=== PATIENT | female | born 1940 | race Caucasian/White ===

== ENCOUNTER 2017-03-07 16:42 | Inpatient (IN) | payer BC, OTHER ==
[~2017-03-07] VITALS: Ht 152.4 cm; Wt 56.3 kg
[~2017-03-07 16:42] MED LIST: DIGO30TA PO; FLEC50TA20 PO; HYDR12.56 PO; LEVO100T PO; LOSA1TAB38 PO; PRAV20TA PO; RSTOPS OP; SPIR25TA PO; WARF2.5T8 PO
[2017-03-07] MEDS ORDERED: ACETAMINOPHEN 325 MG TAB PO STA (17:05)
[2017-03-07] MEDS ORDERED: SODIUM CHLORIDE 0.9% 1000ML 500 ML IV ONE (18:26)
[2017-03-07] MEDS ORDERED: AZTREONAM IV 2,000 MG in DEXTROSE 5% 100ML 100 ML IV STA (18:26)
[2017-03-07] MEDS ORDERED: OPTIRAY 320 IV PRN (18:45)
--- NOTE | 2017-03-07 19:03 | DIAGNOSTIC IMAGING REPORT ---
CHEST ONE VIEW PORTABLE HISTORY: Fever. Sepsis COMPARISON: None. FINDINGS: Left-sided dual-chamber pacemaker. Linear density at the left lung base. The lungs are otherwise clear. The heart is borderline enlarged. No pleural effusions. No pneumothorax. IMPRESSION: Left basilar linear densities favor subsegmental atelectasis. Otherwise, no acute process within the chest. Electronically signed by: Mando Carr M.D. 03/07/2017 7:02 PM Dictated Date/Time: 03/07/2017 7:01 PM
[2017-03-07 19:07] LABS: BASO % 0.3 %; BASO ABS # 0.02 K/uL (0-0.2); COMPLETE YES; HEMATOCRIT 40.3 % (37-47); IG% 0.4 %; LYMPH % 5.8 %; LYMPH ABS # 0.42 K/uL (1.2-3.4); MEAN CELL VOLUME 91.4 fL (80-100); MEAN CORPUSCULAR HEMOGLOBIN 31.7 pg (25-34); MEAN CORPUSCULAR HGB CONC 34.7 g/dl (32-36); MEAN PLATELET VOLUME 10.7 fL (7.4-10.4); MONO % 3.6 %; NEUT % 89.9 %; PLATELET COUNT 148 K/uL (130-400); RED BLOOD COUNT 4.41 M/uL (4.2-5.4); WHITE BLOOD COUNT 7.24 K/uL (4.8-10.8)
[2017-03-07] MEDS ORDERED: CLR10 PO (19:09)
[2017-03-07] MEDS ORDERED: FLUT0.15 NAE (19:09)
[2017-03-07] MEDS ORDERED: MULT-610 PO (19:09)
[2017-03-07] MEDS ORDERED: ALBU18002 INH (19:09)
[2017-03-07] MEDS ORDERED: CLBPO15 TOP (19:09)
[2017-03-07] MEDS ORDERED: CETI10TA84 PO (19:09)
[2017-03-07] MEDS ORDERED: BIOTCAP2 PO (19:09)
[2017-03-07] MEDS ORDERED: CYAN100T PO (19:09)
[2017-03-07] MEDS ORDERED: CALC1CHW2 PO (19:09)
[2017-03-07] MEDS ORDERED: MELA10TA2 PO (19:09)
[2017-03-07 19:20] LABS: INR 1.8 (0.9-1.1); PARTIAL THROMBOPLASTIN RATIO 1.5; PROTHROMBIN TIME (PATIENT) 20.1 SECONDS (9.0-12.0)
--- NOTE | 2017-03-07 19:25 | EMERGENCY ROOM VISIT NOTE ---
History Report prepared by Chrissy: Anna Acharya Under the Supervision of: Dr. Jimbo Madrigal M.D. First contact with patient: 18:15 Chief Complaint: RESPIRATORY PROBLEMS Stated Complaint: HEART,FEVER,SHAKING SPELLS, Nursing Triage Summary: Short of breath for several months. Developed fever last night of 103, shaking, and cold. Called Dr. Garcia who referred pt here. Febrile in triage, 39.3, did not take any tylenol or ibuprofen. History of Present Illness The patient is a 76 year old female who presents to the Emergency Room with complaints of increasing shortness of breath that began three months ago. The patient states that she is typically short of breath with exertion, but notes that recently he has been becoming short of breath with short exertions. She reports that in December she travelled to the [place]. The patient denies any troubles on the vacation other than a syncopal episode due to the heat. She states that two days ago she developed a fever and chills, noting that she takes Tylenol for the fever. The patient states that today she saw her environmental health aide for her recent symptoms, noting that she was sent here for concern of infection or pulmonary embolism. She states that she has been feeling increasingly fatigued, noting that she has been sleeping more. The patient states that she is on Coumadin for her history of atrial fibrillation. She states that her last INR level was low normal. The patient denies any recent or currently antibiotic usage. She denies any recent tick bites. 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 Source of History: patient Onset: three months ago Position: other (global) Quality: other (shortness of breath) Timing: other (persistent) Associated Symptoms: + fevers, + chills, + fatigue Review of Systems See HPI for pertinent positives & negatives. A total of 10 systems reviewed and were otherwise negative. Past Medical & Surgical Medical Problems: (1) Atrial fibrillation (2) Endocarditis (3) Fever and chills (4) Tachy-shantel syndrome Surgical Problems: (1) S/P placement of cardiac pacemaker Family History No pertinent family history Social History Smoking Status: Never Smoker Marital Status: Housing Status: lives with significant other Occupation Status: retired Current/Historical Medications Scheduled Biotin (Biotin 5000), 5,000 MCG PO Q2D Calcium Carbonate-Vitamin D (Caltrate 600+D 600-400 mg-Unit), 1 TAB PO DAILY Cetirizine (Zyrtec), 10 MG PO DAILY Cyanocobalamin (Vitamin B-12), 100 MCG PO DAILY Cyclosporine (Restasis Eye Drops), 1 DROP OP BID Digoxin (Digitek), 0.125 MG PO DAILY Flecainide (Tambocor), 100 MG PO QAM Flecainide (Tambocor), 50 MG PO QPM Hydrochlorothiazide (Hctz), 12.5 MG PO 2XWK Levothyroxine Sodium (Synthroid), 100 MCG PO DAILY Loratadine (Claritin), 10 MG PO DAILY Losartan Potassium (Cozaar), 100 MG PO DAILY Melatonin (Melatonin), 10 MG PO HS Multiple Vitamins W/ Minerals (Centrum Adults), 1 TAB PO DAILY Pravastatin (Pravachol ), 20 MG PO QPM Spironolactone (Aldactone), 25 MG PO DAILY Warfarin Sod (Jantoven), 2.5 MG PO 6XWK Warfarin Sod (Jantoven), 1.25 MG PO WK Scheduled PRN Albuterol Sulfate (Proair Respiclick), 2 PUFFS INH QID PRN for SOB/Wheezing Clobetasol Propionate (Clobetasol Propionate), 1 APPLN TOP BID PRN for Fluticasone Propionate (Nasal) (Flonase Allergy Relief), 2 SPRAYS TAMERA DAILY PRN for Allergies Coded Allergies: Cephalosporins (Verified Allergy, Intermediate, HIVES, 03/07/17) Penicillins (Verified Allergy, Intermediate, HIVES, 03/07/17) Lisinopril (Verified Allergy, Unknown, UNKNOWN, 03/07/17) Physical Exam Vital Signs Date Time Temp Pulse Resp B/P (MAP) Pulse Ox O2 Delivery O2 Flow Rate FiO2 03/07/17 21:51 71 16 131/58 94 Room Air 03/07/17 21:08 66 03/07/17 19:12 93 Room Air 03/07/17 19:04 65 16 119/56 93 Room Air 03/07/17 17:02 95 Room Air 03/07/17 16:56 39.3 77 16 151/73 95 Room Air Physical Exam GENERAL: Patient is in no acute distress. HEENT: No acute trauma, normocephalic atraumatic, mucous membranes moist, no nasal congestion, no scleral icterus. NECK: No stridor, no adenopathy, no meningismus, trachea is midline. LUNGS: Lung: crackles at left base, no wheezing, breath sounds are equal, no respiratory distress. HEART: Without murmurs gallops or rubs, regular rate and rhythm. ABDOMEN: Soft, nontender, bowel sounds positive, no hernias, no peritonitis. EXTREMITIES: No cyanosis or edema, full range of motion of all the joints without pain or difficulty, no signs for acute trauma. NEUROLOGIC: Oriented x 3, no acute motor or sensory deficits, no focal weakness. SKIN: No rash, no jaundice, no diaphoresis. Medical Decision & Procedures ER Provider Diagnostic Interpretation: Radiology results as stated below per my review and radiologist interpretation: CT ANGIOGRAPHY OF THE CHEST, PULMONARY EMBOLUS PROTOCOL CLINICAL HISTORY: Shortness of breath and fever. COMPARISON STUDY: Chest radiograph March 07, 2017. TECHNIQUE: Following IV administration of 94 mL of Optiray-320, helical axial images of the chest were obtained utilizing the pulmonary embolus protocol. Maximal intensity projections and sagittal and coronal reformats were viewed on an independent 3D workstation. IV contrast was administered without complication. A dose lowering technique was utilized adhering to the principles of ALARA. CT DOSE: 169.73 mGy.cm FINDINGS: No pulmonary emboli are identified although the segmental and subsegmental pulmonary arteries within the lower lobes are suboptimally assessed due to respiratory motion. There is a dual lead left subclavian pacemaker. The heart is moderately enlarged. There is no evidence of thoracic aortic dissection. No enlarged thoracic lymph nodes are present. No pneumothorax or pleural effusion is present. Suspected venous gas is noted within the right anterior chest wall. There is no consolidation to suggest pneumonia although lungs are suboptimally assessed due to respiratory motion. The bony thorax and upper abdomen are unremarkable. IMPRESSION: 1. No pulmonary emboli identified although the segmental and subsegmental pulmonary arteries within the lower lobes are suboptimally assessed due to respiratory motion. 2. Moderate cardiomegaly. 3. No acute intrathoracic findings. Electronically signed by: Jaquan Arroyo M.D. 03/07/2017 9:11 PM Dictated Date/Time: 03/07/2017 9:01 PM CHEST ONE VIEW PORTABLE HISTORY: Fever. Sepsis COMPARISON: None. FINDINGS: Left-sided dual-chamber pacemaker. Linear density at the left lung base. The lungs are otherwise clear. The heart is borderline enlarged. No pleural effusions. No pneumothorax. IMPRESSION: Left basilar linear densities favor subsegmental atelectasis. Otherwise, no acute process within the chest. Electronically signed by: Mando Carr M.D. 03/07/2017 7:02 PM Dictated Date/Time: 03/07/2017 7:01 PM Laboratory Results 03/07/17 18:48 Red Blood Count 4.41, Mean Corpuscular Volume 91.4, Mean Corpuscular Hemoglobin 31.7, Mean Corpuscular Hemoglobin Concent 34.7, Mean Platelet Volume 10.7, Neutrophils (%) (Auto) 89.9, Lymphocytes (%) (Auto) 5.8, Monocytes (%) (Auto) 3.6, Eosinophils (%) (Auto) 0.0, Basophils (%) (Auto) 0.3, Neutrophils # (Auto) 6.51, Lymphocytes # (Auto) 0.42, Monocytes # (Auto) 0.26, Eosinophils # (Auto) 0.00, Basophils # (Auto) 0.02 03/07/17 18:48 Test 03/07/17 18:48 03/07/17 18:52 03/07/17 20:10 White Blood Count 7.24 K/uL (4.8-10.8) Red Blood Count 4.41 M/uL (4.2-5.4) Hemoglobin 14.0 g/dL (12.0-16.0) Hematocrit 40.3 % (37-47) Mean Corpuscular Volume 91.4 fL (80-100) Mean Corpuscular Hemoglobin 31.7 pg (25-34) Mean Corpuscular Hemoglobin Concent 34.7 g/dl (32-36) Platelet Count 148 K/uL (130-400) Mean Platelet Volume 10.7 fL (7.4-10.4) Neutrophils (%) (Auto) 89.9 % Lymphocytes (%) (Auto) 5.8 % Monocytes (%) (Auto) 3.6 % Eosinophils (%) (Auto) 0.0 % Basophils (%) (Auto) 0.3 % Neutrophils # (Auto) 6.51 K/uL (1.4-6.5) Lymphocytes # (Auto) 0.42 K/uL (1.2-3.4) Monocytes # (Auto) 0.26 K/uL (0.11-0.59) Eosinophils # (Auto) 0.00 K/uL (0-0.5) Basophils # (Auto) 0.02 K/uL (0-0.2) RDW Standard Deviation 41.6 fL (36.4-46.3) RDW Coefficient of Variation 12.4 % (11.5-14.5) Immature Granulocyte % (Auto) 0.4 % Immature Granulocyte # (Auto) 0.03 K/uL (0.00-0.02) Prothrombin Time 20.1 SECONDS (9.0-12.0) Prothromb Time International Ratio 1.8 (0.9-1.1) Activated Partial Thromboplast Time 38.3 SECONDS (21.0-31.0) Partial Thromboplastin Ratio 1.5 Anion Gap 8.0 mmol/L (3-11) Est Creatinine Clear Calc Drug Dose 29.1 ml/min Estimated GFR () 46.2 Estimated GFR (Non- 39.8 BUN/Creatinine Ratio 15.0 (10-20) Calcium Level 8.5 mg/dl (8.5-10.1) Magnesium Level 1.8 mg/dl (1.8-2.4) Total Bilirubin 0.7 mg/dl (0.2-1) Aspartate Amino Transf (AST/SGOT) 39 U/L (15-37) Alanine Aminotransferase (ALT/SGPT) 41 U/L (12-78) Alkaline Phosphatase 63 U/L (45-117) Total Protein 6.9 gm/dl (6.4-8.2) Albumin 3.3 gm/dl (3.4-5.0) Globulin 3.6 gm/dl (2.5-4.0) Albumin/Globulin Ratio 0.9 (0.9-2) Thyroid Stimulating Hormone (TSH) 0.107 uIu/ml (0.300-4.500) Free Thyroxine 1.77 ng/dl (0.80-1.60) Chemistry Specimen Hemolysis Digoxin Level 1.1 ng/ml (0.8-2.0) Lyme Disease IgG Antibody NEG (NEG) Lyme Disease IgM Antibody NEG (NEG) Bedside Lactic Acid Venous 0.93 mmol/L (0.90-1.70) Urine Color YELLOW Urine Appearance CLEAR (CLEAR) Urine pH 6.5 (4.5-7.5) Urine Specific [place] 1.016 (1.000-1.030) Urine Protein TRACE (NEG) Urine Glucose (UA) NEG (NEG) Urine Ketones NEG (NEG) Urine Occult Blood NEG (NEG) Urine Nitrite NEG (NEG) Urine Bilirubin NEG (NEG) Urine Urobilinogen NEG (NEG) Urine Leukocyte Esterase NEG (NEG) Urine WBC (Auto) 1-5 /hpf (0-5) Urine RBC (Auto) 5-10 /hpf (0-4) Urine Hyaline Casts (Auto) 1-5 /lpf (0-5) Urine Epithelial Cells (Auto) 5-10 /lpf (0-5) Urine Bacteria (Auto) NEG (NEG) Laboratory results reviewed by me. Medications Administered Medications (Trade) Dose Ordered Sig/Cynthia Route Start Time Stop Time Status Last Admin Dose Admin Acetaminophen (Tylenol Tab) 650 mg NOW STAT PO 03/07/17 17:05 03/07/17 17:07 DC 03/07/17 17:05 650 MG Sodium Chloride 500 ml @ 999 mls/hr Q31M ONCE IV 03/07/17 18:26 03/07/17 18:56 DC 03/07/17 19:02 999 MLS/HR Aztreonam 2000 mg/ Dextrose 110 ml @ 100 mls/hr NOW STAT IV 03/07/17 18:26 03/07/17 19:31 DC 03/07/17 19:02 100 MLS/HR Sodium Chloride 500 ml @ 999 mls/hr Q31M STAT IV 03/07/17 19:43 03/07/17 20:13 DC 03/07/17 20:15 999 MLS/HR ECG Indication: SOB/dyspnea Rate (beats per minute): 68 Rhythm: normal sinus Findings: no acute ischemic change, other (Old inferior infarct, Poor R wave progression) ED Course 1704: Ordered Tylenol Tab 650 mg PO. 1820: The patient was evaluated in room A4B. A complete history and physical exam was performed. 1825: Ordered Aztreonam 2000 mg/Dextrose 110 ml @ 100 mls/hr IV, Sodium Chloride 500 ml @ 999 mls/hr IV. 1942: Ordered Sodium Chloride 500 ml @ 999 mls/hr IV. 2124: I reevaluated the patient and she is resting comfortably. I discussed the exam findings with her and I discussed the treatment plan. She verbalized complete understanding and agreement. We are awaiting a call back from cardiology. 2129: I discussed the patients case with Dr. Mays Cardiology. He states that the patient should be evaluated for further treatment in the hospital. 2138: I spoke with the patient and updated her on the conversation I had with Cardiology. She is in agreement with the plan. She will be evaluated for further treatment. 2139: I discussed the patients case with Leda Peterson. He is going to evaluate the patient for further treatment. Medical Decision The patient is a 76 year old female who presents to the ED with complaints of shortness of breath. Differential diagnoses considered include sepsis, bacteremia, Lyme Disease, endocarditis, pneumonia, UTI, viral illness, PE, electrolyte imbalance, anemia. There is no leukocytosis or concerning anemia. No significant electrolyte abnormality, kidney failure or hepatitis. Lactic acid level is not elevated making severe sepsis less likely. Urinalysis does not show infection. Blood cultures are pending. INR is somewhat subtherapeutic for someone on Coumadin. Chest film does not show any pneumonia. EKG shows a sinus rhythm, no acute ischemia. Chest CT does not show any PE or pneumonia. Lyme disease testing is negative. Digoxin level is not toxic. The patient received IV saline, she was given IV aztreonam as antibiotic coverage. She received oral Tylenol for her fever. The patient presents with a fever without a known source. I did speak with her environmental health aide. There was concern for endocarditis. Hospitalization was felt needed. I spoke to the patient and the casework manager. I spoke with the on-call hospitalist. Admission/observation is warranted. Medication Reconcilliation Current Medication List: was personally reviewed by me Blood Pressure Screening Patient's blood pressure: Elevated blood pressure Blood pressure disposition: Elevated BP felt to be situational Consults Time Called: 2126 Consulting Physician: Dr. Mays, Cardiology Returned Call: 2129 I discussed the patients case with Dr. Mays Cardiology. He states that the patient should be evaluated for further treatment in the hospital. Additional Consults: Time Called: 2137 Consulted Physician: Leda Peterson Returned Call: 2139 Additional Comments: I discussed the patients case with Leda Peterson. He is going to evaluate the patient for further treatment. Impression Primary Impression: Shortness of breath Additional Impression: Fever Scribe Attestation The scribe's documentation has been prepared under my direction and personally reviewed by me in its entirety. I confirm that the note above accurately reflects all work, treatment, procedures, and medical decision making performed by me. Departure Information Dispostion Being Evaluated By Hospitalist Referrals Maia Benito DO (PCP) Problem Qualifiers
[2017-03-07 19:39] LABS: ALB/GLOB RATIO 0.9 (0.9-2); CALCIUM 8.5 mg/dl (8.5-10.1); CREATININE 1.3 mg/dl (0.60-1.20); MAGNESIUM 1.8 mg/dl (1.8-2.4); POTASSIUM 3.8 mmol/L (3.5-5.1); THYROID STIMULATING HORMONE 0.107 uIu/ml (0.300-4.500)
[2017-03-07] MEDS ORDERED: SODIUM CHLORIDE 0.9% 500ML 500 ML IV STA (19:43)
[2017-03-07 19:59] LABS: LYME DISEASE AB IGG NEG (NEG); LYME DISEASE AB IGM NEG (NEG)
[2017-03-07 21:02] LABS: URINE APPEARANCE CLEAR (CLEAR); URINE BILIRUBIN NEG (NEG); URINE COLOR YELLOW; URINE NITRITE NEG (NEG); URINE PH 6.5 (4.5-7.5); URINE SPECIFIC GRAVITY 1.016 (1.000-1.030); UROBILINOGEN NEG (NEG); ZZUR CULT IF INDIC CLEAN CATCH NO
[2017-03-07 21:04] LABS: MANUAL MICROSCOPIC REQUIRED? NO; REVIEW REQ? NO
--- NOTE | 2017-03-07 21:12 | DIAGNOSTIC IMAGING REPORT ---
CT ANGIOGRAPHY OF THE CHEST, PULMONARY EMBOLUS PROTOCOL CLINICAL HISTORY: Shortness of breath and fever. COMPARISON STUDY: Chest radiograph March 07, 2017. TECHNIQUE: Following IV administration of 94 mL of Optiray-320, helical axial images of the chest were obtained utilizing the pulmonary embolus protocol. Maximal intensity projections and sagittal and coronal reformats were viewed on an independent 3D workstation. IV contrast was administered without complication. A dose lowering technique was utilized adhering to the principles of ALARA. CT DOSE: 169.73 mGy.cm FINDINGS: No pulmonary emboli are identified although the segmental and subsegmental pulmonary arteries within the lower lobes are suboptimally assessed due to respiratory motion. There is a dual lead left subclavian pacemaker. The heart is moderately enlarged. There is no evidence of thoracic aortic dissection. No enlarged thoracic lymph nodes are present. No pneumothorax or pleural effusion is present. Suspected venous gas is noted within the right anterior chest wall. There is no consolidation to suggest pneumonia although lungs are suboptimally assessed due to respiratory motion. The bony thorax and upper abdomen are unremarkable. IMPRESSION: 1. No pulmonary emboli identified although the segmental and subsegmental pulmonary arteries within the lower lobes are suboptimally assessed due to respiratory motion. 2. Moderate cardiomegaly. 3. No acute intrathoracic findings. Electronically signed by: Jaquan Arroyo M.D. 03/07/2017 9:11 PM Dictated Date/Time: 03/07/2017 9:01 PM
[2017-03-07] MEDS ORDERED: VANCOMYCIN INJ 1,400 MG in SODIUM CHLORIDE 0.9% 250ML 250 ML IV STA (22:14)
[2017-03-07] MEDS ORDERED: ALBUTEROL HFA 8 GM INHALER INH PRN (22:15)
[2017-03-07] MEDS ORDERED: FLUTICASONE PROPIONATE NA SPR 16 GM BTL NAE PRN (22:15)
[2017-03-07] MEDS ORDERED: ONDANSETRON INJ 2 MG/ML 2 ML VIAL IV PRN (22:15)
[2017-03-07] MEDS ORDERED: VANCOMYCIN INJ 1,400 MG in SODIUM CHLORIDE 0.9% 500ML 500 ML IV STA (22:18)
[2017-03-07 23:01] VITALS: BP 173/80; PULSE 111; TEMP 37.5; O2SAT 95; Ht 152.4 cm; Wt 56.3 kg
[2017-03-07] MEDS ORDERED: WARFARIN SOD 2.5 MG TAB PO STA (23:15)
[2017-03-07 23:25] VITALS: BP 122/62; PULSE 80
[2017-03-07] MEDS ORDERED: VANCOMYCIN CONSULT ACTIVE PRN (23:45)
[2017-03-07] MEDS ORDERED: AZTREONAM CONSULT ACTIVE PRN ×2 (23:45)
[2017-03-08] VITALS (31 sets, daily range): BP systolic 102–145; BP diastolic 48–74; PULSE 60–89; TEMP 36.5–38.8; O2SAT 92–98
[2017-03-08] MEDS: NSS + 20MEQ KCL 1000ML 1,000 ML IV SCH ×3 (00:44→18:30)
--- NOTE | 2017-03-08 00:50 | HISTORY & PHYSICAL EXAMINATION ---
DATE OF ADMISSION: 03/07/2017 PRIMARY CARE PHYSICIAN: Dr. Benito. CHIEF COMPLAINT: Shortness of breath for 2 months and fever with chills and nausea for the last 2 days. HITORY OF PRESENT COMPLAINT: She is a 76-year-old female with significant past medical history including atrial fibrillation, on anticoagulation, mitral valve regurgitation, hypothyroidism, hypertension, chronic kidney disease stage III. Apparently has been complaining of shortness of breath for the last 2 days. Her shortness of breath is getting worse and now she gets shortness of breath when walking on the same floor. For the last 2 days, she also developed fever and she documented temperature to be 103.5 degrees. The fever was associated with severe chills and shakes and also had some nausea with it but did not have any cough, any phlegm, any sore throat, any runny nose, sneezing, any problem with urine and/or bowel. She does not have any rash. She was seen in the cardiology clinic today and from there she was sent to Emergency Room for evaluation and workup for probable endocarditis. In the ER, she was hemodynamically stable and her blood counts were fairly unremarkable except creatinine of 1.[address] scan of the chest negative for any pulmonary embolism. She was started with intravenous aztreonam and vancomycin after taking blood cultures and she was admitted to telemetry unit for continuation of care. PAST MEDICAL HISTORY: Significant for atrial fibrillation, on anticoagulation, history of tachybrady syndrome with cardiac pacemaker, chronic kidney disease stage III, mitral valve regurgitation, hypothyroidism, hypertension and chronic shortness of breath on exertion. PAST SURGICAL HISTORY: Significant for pacemaker insertion, right knee surgery as a child, tonsillectomy as a child and hysterectomy in 1993. FAMILY HISTORY: Significant that both the parents had ischemic heart disease. SOCIAL HISTORY: She is . She lives with her . She does not smoke but drinks very occasionally and she has been ambulant though she gets short of breath even walking on the same floor for the last few days. ALLERGIES: SHE IS ALLERGIC TO CEPHALOSPORINS, LISINOPRIL AND PENICILLIN. MEDICATIONS: As an outpatient, she has been on hydrochlorothiazide 12.5 mg 2 times per week, warfarin 2.5 mg as directed, biotin 5000 mcg every 2 days, calcium with vitamin D 1 tablet daily, clobetasol propionate 1 application topical b.i.d. as needed, albuterol inhaler 2 puffs q.i.d. p.r.n., Zyrtec 10 mg daily, cyanocobalamin 100 mcg daily, cyclosporine solution 1 drop b.i.d., digoxin 0.125 mg daily, flecainide 50 mg q.p.m., flecainide 50 mg tablet 2 tablets in the morning, Flonase nasal spray 2 sprays each nostril, levothyroxine 100 mcg daily, Claritin 10 mg daily, losartan potassium, Cozaar 100 mg daily, melatonin 10 mg at night, multivitamin 1 tablet daily, Pravachol 20 mg tablet daily, spironolactone 25 mg tablet daily. REVIEW OF SYSTEMS: CENTRAL NERVOUS SYSTEM: No headache, no blurred vision, no numbness or tingling in the extremities. RESPIRATORY: Has shortness of breath on minimal exertion. No cough or phlegm. CARDIOVASCULAR: No chest pain, no palpitations. GASTROINTESTINAL: No abdominal distention, pain, and had nausea but no vomiting. GENITOURINARY: No problem with urine and/or bowel habit. Generally, does not have any rash or any joint pain. CONSTITUTIONAL: She complains to have fever with chills, generalized weakness with shortness of breath and nausea. PHYSICAL EXAMINATION: GENERAL: On examination in the Emergency Room, she was not having any acute distress except she complained of some chills. VITAL SIGNS: Temperature 39.3, pulse was 71, blood pressure 131/58, saturation 94% on room air. HEENT: Unremarkable. NECK: Supple. No JVD, no bruit. CHEST: Clear to auscultation bilaterally. HEART: S1, S2 regular with a 2/6 systolic murmur over precordium. ABDOMEN: Soft, benign, nontender, no organomegaly. Bowel sounds present. EXTREMITIES: Trace edema bilaterally. Peripheral pulses were palpable. MUSCULOSKELETAL SYSTEM: Did not show any acute arthritis involving any joint. CENTRAL NERVOUS SYSTEM: She was alert, awake, oriented x3. No focal sensory and/or motor deficit appreciated. Generally, she did not have any rash and/or enlargement of lymph nodes. LABORATORY DATA: Noted today, white count was 7.24, H&H 14.0/40.3, platelet was 148. Sodium 131, potassium 3.8, chloride was 98, carbon dioxide 25, BUN 19, creatinine 1.3, random glucose 114, lactic acid was 0.93. LFTs unremarkable. AST slightly high at 39, albumin 3.3. TSH was 0.107, free T4 was 1.77. Digoxin level was 1.1 and Lyme titer Ig G&M negative. Protime was 20.1, INR 1.8, APTT ratio 1.5. Chest x-ray reported as left basilar linear densities, favor subsegmental atelectasis, otherwise no acute findings. CT of the chest to rule out pulmonary embolism. No pulmonary emboli identified, moderate cardiomegaly and no acute intrathoracic findings. EKG was in sinus rhythm, rate of 68 per minute. Normal axis, possible anterior infarct undetermined and no other ST-T wave changes. Other cardiac studies, echo that was done in 2014, cannot open the results. IMPRESSION AND PLAN: 1. Febrile illness with atrial fibrillation and mitral regurgitation. Infective endocarditis has to be ruled out. The patient was started with intravenous aztreonam and vancomycin. Blood cultures are taken. She will be admitted to telemetry unit with cardiology evaluation for possible ROLANDO in the morning. We will get ID consultation as well. There is no other cause for fever, found during this admission. We will check her urine as well. 2. Atrial fibrillation, on Coumadin. The rate seems to be controlled right now. She has a pacemaker for tachybrady syndrome, pacemaker was interrogated today in the clinic, those were unremarkable. We will continue her current medications. Her digoxin level is therapeutic. 3. Ongoing shortness of breath. The patient has mitral regurgitation. No recent echo on chart to document cardiac function. She will have a ROLANDO, I believe tomorrow, for further evaluation of cardiac function and also to rule out any endocarditis. 4. Hypertension. Blood pressure seems to be reasonably controlled. We will continue her current medications. 5. Hypothyroidism, her TSH is little bit low. Free T4 is high. We will hold thyroid medications, maybe we will need to start the lower dose in a day or two. 6. Gastrointestinal prophylaxis. We will put her on Protonix. 7. Deep venous thrombosis prophylaxis. She has been on Coumadin. We may have to bridge the patient during ROLANDO. Discuss that with aircraft painter apprentice.Continue Coumadin Code status, she will be full code. In my clinical judgment, the beneficiary meets criteria as per CMS for 2-midnight stay in the hospital. JORGITOD
[2017-03-08] MEDS: AZTREONAM IV 1,000 MG in DEXTROSE 5% 100ML 100 ML IV SCH ×3 (01:34→17:41)
--- NOTE | 2017-03-08 02:24 | Pharmacy Progress Note ---
Pharmacy Antibiotic Consult Date of Service: Mar 08, 2017. Pharmacy Dosing Scope * Pharmacy is consulted to initiate Vancomycin IV dosing therapy, order appropriate labs and adjust drug dose/frequency. Subjective * The patient is a 76 year old female admitted on Mar 07, 2017 at 22:14. Objective Height (Feet): 5 Height (Inches): 0.00 Weight (Kilograms): 57.100 Lab Results (24hrs): Test 03/07/17 18:48 03/07/17 18:52 03/07/17 20:10 03/08/17 00:18 White Blood Count 7.24 K/uL (4.8-10.8) Red Blood Count 4.41 M/uL (4.2-5.4) Hemoglobin 14.0 g/dL (12.0-16.0) Hematocrit 40.3 % (37-47) Mean Corpuscular Volume 91.4 fL (80-100) Mean Corpuscular Hemoglobin 31.7 pg (25-34) Mean Corpuscular Hemoglobin Concent 34.7 g/dl (32-36) Platelet Count 148 K/uL (130-400) Mean Platelet Volume 10.7 fL (7.4-10.4) Neutrophils (%) (Auto) 89.9 % Lymphocytes (%) (Auto) 5.8 % Monocytes (%) (Auto) 3.6 % Eosinophils (%) (Auto) 0.0 % Basophils (%) (Auto) 0.3 % Neutrophils # (Auto) 6.51 K/uL (1.4-6.5) Lymphocytes # (Auto) 0.42 K/uL (1.2-3.4) Monocytes # (Auto) 0.26 K/uL (0.11-0.59) Eosinophils # (Auto) 0.00 K/uL (0-0.5) Basophils # (Auto) 0.02 K/uL (0-0.2) RDW Standard Deviation 41.6 fL (36.4-46.3) RDW Coefficient of Variation 12.4 % (11.5-14.5) Immature Granulocyte % (Auto) 0.4 % Immature Granulocyte # (Auto) 0.03 K/uL (0.00-0.02) Prothrombin Time 20.1 SECONDS (9.0-12.0) Prothromb Time International Ratio 1.8 (0.9-1.1) Activated Partial Thromboplast Time 38.3 SECONDS (21.0-31.0) Partial Thromboplastin Ratio 1.5 Sodium Level 131 mmol/L (136-145) Potassium Level 3.8 mmol/L (3.5-5.1) Chloride Level 98 mmol/L (98-107) Carbon Dioxide Level 25 mmol/L (21-32) Anion Gap 8.0 mmol/L (3-11) Blood Urea Nitrogen 19 mg/dl (7-18) Creatinine 1.30 mg/dl (0.60-1.20) Est Creatinine Clear Calc Drug Dose 29.1 ml/min Estimated GFR () 46.2 Estimated GFR (Non- 39.8 BUN/Creatinine Ratio 15.0 (10-20) Random Glucose 114 mg/dl (70-99) Calcium Level 8.5 mg/dl (8.5-10.1) Magnesium Level 1.8 mg/dl (1.8-2.4) Total Bilirubin 0.7 mg/dl (0.2-1) Aspartate Amino Transf (AST/SGOT) 39 U/L (15-37) Alanine Aminotransferase (ALT/SGPT) 41 U/L (12-78) Alkaline Phosphatase 63 U/L (45-117) Total Protein 6.9 gm/dl (6.4-8.2) Albumin 3.3 gm/dl (3.4-5.0) Globulin 3.6 gm/dl (2.5-4.0) Albumin/Globulin Ratio 0.9 (0.9-2) Thyroid Stimulating Hormone (TSH) 0.107 uIu/ml (0.300-4.500) Free Thyroxine 1.77 ng/dl (0.80-1.60) Chemistry Specimen Hemolysis Digoxin Level 1.1 ng/ml (0.8-2.0) Lyme Disease IgG Antibody NEG (NEG) Lyme Disease IgM Antibody NEG (NEG) Bedside Lactic Acid Venous 0.93 mmol/L (0.90-1.70) Urine Color YELLOW Urine Appearance CLEAR (CLEAR) Urine pH 6.5 (4.5-7.5) Urine Specific Clifford 1.016 (1.000-1.030) Urine Protein TRACE (NEG) Urine Glucose (UA) NEG (NEG) Urine Ketones NEG (NEG) Urine Occult Blood NEG (NEG) Urine Nitrite NEG (NEG) Urine Bilirubin NEG (NEG) Urine Urobilinogen NEG (NEG) Urine Leukocyte Esterase NEG (NEG) Urine WBC (Auto) 1-5 /hpf (0-5) Urine RBC (Auto) 5-10 /hpf (0-4) Urine Hyaline Casts (Auto) 1-5 /lpf (0-5) Urine Epithelial Cells (Auto) 5-10 /lpf (0-5) Urine Bacteria (Auto) NEG (NEG) Total Creatine Kinase 111 U/L (26-192) Creatine Kinase MB < 0.5 ng/ml (0.5-3.6) Creatine Kinase MB Ratio (0-3.0) Troponin I 0.021 ng/ml (0-0.045) Micro Results: * Blood cultures are pending Recent Pertinent Medications * Pt is also receiving Aztreonam Assessment & Plan * Ms Horton is a 76y/o female admitted for endocarditis being treated with Vancomycin and Azactam. * Vanco Loading dose: 1400 mg IV ~25mg/kg) X 1 dose then 750mg IV (~ 13mg/kg ) every 24 hours * Goal trough level estimate: between 15-20 mcg/mL. * Trough level is ordered for 03/10/17 @ 9340 Pharmacy will continue to follow and will adjust dose/frequency as necessary. Thank you
[2017-03-08] MEDS: ACETAMINOPHEN 325 MG TAB PO PRN ×2 (04:20→15:53)
[2017-03-08] MEDS: LEVOTHYROXINE 100 MCG TAB PO SCH ×2 (05:25→07:42)
[2017-03-08 05:28] LABS: HEMATOCRIT 36.2 % (37-47); MEAN CELL VOLUME 90.7 fL (80-100); MEAN CORPUSCULAR HEMOGLOBIN 31.6 pg (25-34); MEAN CORPUSCULAR HGB CONC 34.8 g/dl (32-36); MEAN PLATELET VOLUME 10.2 fL (7.4-10.4); PLATELET COUNT 124 K/uL (130-400); RED BLOOD COUNT 3.99 M/uL (4.2-5.4); WHITE BLOOD COUNT 6.93 K/uL (4.8-10.8)
[2017-03-08 05:36] LABS: INR 1.7 (0.9-1.1); PROTHROMBIN TIME (PATIENT) 18.5 SECONDS (9.0-12.0)
[2017-03-08 06:01] LABS: ALKALINE PHOSPHATASE 50 U/L (45-117); ALT/SGPT 46 U/L (12-78); AST/SGOT 48 U/L (15-37); BLOOD UREA NITROGEN 17 mg/dl (7-18); BUN/CREATININE RATIO 14.4 (10-20); CARBON DIOXIDE 25 mmol/L (21-32); CHLORIDE 105 mmol/L (98-107); GLUCOSE 121 mg/dl (70-99); MAGNESIUM 1.7 mg/dl (1.8-2.4); POTASSIUM 3.5 mmol/L (3.5-5.1); SODIUM 137 mmol/L (136-145)
[2017-03-08 07:36] LABS: CALCIUM 7.2 mg/dl (8.5-10.1)
[2017-03-08] MEDS: CYANOCOBALAMIN 100 MCG TAB (VIT B-12) PO SCH (07:36)
[2017-03-08] MEDS: FLECAINIDE ACETATE 100 MG TAB PO SCH (07:36)
[2017-03-08] MEDS: LORATADINE 10 MG TAB PO SCH (07:36)
[2017-03-08] MEDS: CEROVITE ADV FORMULA TAB PO SCH (07:37)
[2017-03-08] MEDS: RESTASIS~ORDER AWAITING ACTION SCH ×3 (07:37→15:52)
[2017-03-08] MEDS: LOSARTAN POTASSIUM 50 MG TAB PO SCH (07:37)
[2017-03-08] MEDS: SPIRONOLACTONE 25 MG TAB PO SCH (07:37)
[2017-03-08] MEDS ORDERED: CETIRIZINE HCL 10 MG TAB PO SCH (09:00)
[2017-03-08] MEDS ORDERED: FENTANYL CITRATE INJ 50 MCG/1 ML 2 ML VIAL ONE (11:15)
[2017-03-08] MEDS ORDERED: MIDAZOLAM HCL 5 MG/ML 1 ML VIAL ONE (11:15)
--- NOTE | 2017-03-08 11:23 | Cardiology Consultation ---
Cardiology Consultation Date of Service Mar 08, 2017. Cardiology Consultation cardiology consultation in process. Pt seen and examined. Fever overnight, improved after tylenol. Pt fees well at present. TTecho this am was reviewed with normal wall motion , normal LVEF. Mild TR. AV and MV thickening without gross vegetation. Plan ROLANDO today with conscious sedation.
--- NOTE | 2017-03-08 11:24 | Procedure Note ---
Pre-Mod Sedation Assessment General Date of Moderate Sedation: Mar 08, 2017. Vital Signs: Vital Signs Past 12 Hours Date Time Temp Pulse Resp B/P (MAP) Pulse Ox O2 Delivery O2 Flow Rate FiO2 03/08/17 08:00 Room Air 03/08/17 07:35 37.0 63 18 103/63 (76) 96 Room Air 03/08/17 05:25 37.5 03/08/17 05:24 37.5 03/08/17 04:37 Room Air 03/08/17 04:05 38.8 89 18 134/72 (92) 93 Room Air 03/08/17 04:05 Room Air 03/08/17 00:05 Room Air 03/07/17 23:25 80 122/62 (82) Review Cardiovascular: regular rate, rhythm, no edema Abdomen: non tender Lungs: lungs clear Airway Class: II Pre-Sedation Airway Assessment Oral Cavity: WNL Able to Visualize Vocal Cords: No Short Thick Neck: No Hx of Sleep Apnea: No Smoking Status: Never Smoker Mallampati Classification: Class II ASA Classification: Class III Procedure Planning Contraindications-for Mod Sed: None Yes Notes The planned sedation has been discussed with the patient and consent obtained. I have identified the patient, determined the appropriateness of sedation and have assessed the patient immediately prior to the procedure. All medicine(s) and interventions are by my order.
[2017-03-08] MEDS ORDERED: LIDOCAINE HCL 2% JELLY 30 ML TUBE EXT ONE (11:29)
[2017-03-08] MEDS ORDERED: NURSING VERBAL MED ORDER ONE (11:45)
[2017-03-08 11:47] LABS: CKMB/CK RATIO 0.6 (0-3.0)
[2017-03-08] MEDS ORDERED: LIDOCAINE HCL 2% VISC SOLN 20 ML UDC PO ONE (11:57)
[2017-03-08] MEDS ORDERED: LIDOCAINE HCL 2% VISC SOLN 20 ML UDC MT ONE (12:00)
--- NOTE | 2017-03-08 13:01 | Procedure Note ---
Post-Mod Sedation Assessment General Date of Moderate Sedation Mar 08, 2017. Vital Signs: Vital Signs Past 12 Hours Date Time Temp Pulse Resp B/P (MAP) Pulse Ox O2 Delivery O2 Flow Rate FiO2 03/08/17 12:36 68 26 126/60 94 Nasal Cannula 2.0 03/08/17 12:33 70 26 129/56 94 Nasal Cannula 2.0 03/08/17 12:28 66 18 119/48 93 Nasal Cannula 2.0 03/08/17 12:25 67 17 117/66 94 Nasal Cannula 2.0 03/08/17 12:22 68 26 123/72 95 Nasal Cannula 2.0 03/08/17 12:18 66 22 105/62 94 Nasal Cannula 2.0 03/08/17 12:15 67 20 116/55 94 Nasal Cannula 2.0 03/08/17 12:12 66 18 120/55 93 Nasal Cannula 2.0 03/08/17 12:10 66 19 104/49 97 Nasal Cannula 2.0 03/08/17 12:08 70 22 128/66 98 Nasal Cannula 2.0 03/08/17 12:05 63 20 104/51 98 Nasal Cannula 2.0 03/08/17 12:00 Room Air 03/08/17 11:50 64 22 145/65 98 Nasal Cannula 2.0 03/08/17 11:37 36.5 63 18 118/56 98 Nasal Cannula 2.0 03/08/17 08:00 Room Air 03/08/17 07:35 37.0 63 18 103/63 (76) 96 Room Air 03/08/17 05:25 37.5 03/08/17 05:24 37.5 03/08/17 04:37 Room Air 03/08/17 04:05 38.8 89 18 134/72 (92) 93 Room Air 03/08/17 04:05 Room Air Review - Discharge Criteria Vital Signs Stable: Yes Alert/Oriented/Conversant: Yes Returned to Baseline Mental St: Yes Nausea Absent/Minimal: Yes Pain/Discomfort/Absent/Minimal: Yes Normal/Baseline Respirations: Yes Active Bleeding?: No Pt Received D/C Instructions: N/A Prescriptions Given: None Specific Proced. D/C Criteria Distal Pulses Present (Cardiac: N/A Groin site assessed-Card Cath: N/A Voided Prior To Discharge: N/A Discharged Patients Adult Escort/Transportation: N/A
--- NOTE | 2017-03-08 13:05 | Cardiology Procedure Brief Nt ---
Preliminary Cardiology Note Procedure Date Mar 08, 2017. 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 Will ultimately require extraction of the pacemaker and lead system at a tertiary center with CT surgery back up. Specimens none Anesthesia viscous lidocaine, topical cetacaine spray, Versed 3 mg IV, Fentanyl 75 mcg Complication(s) None Disposition recover in SICU then transfer back to PCU
[2017-03-08] MEDS: DIGOXIN 0.125 MG TAB PO SCH (15:54)
[2017-03-08] MEDS ORDERED: WARFARIN SOD 2.5 MG TAB PO SCH (16:00)
[2017-03-08 17:16] LABS: CKMB/CK RATIO 0.7 (0-3.0)
[2017-03-08] MEDS ORDERED: SODIUM CHLORIDE 0.9% 500ML 500 ML IV SCH (18:30)
--- NOTE | 2017-03-08 19:16 | ECHOCARDIOGRAM REPORT ---
*NOTICE TO RECEIVING REPUBLICAN AGENCY This information is strictly Confidential and protected under [place] law. [place] law prohibits you from making any further disclosure of this information unless further disclosure is expressly permitted by the written consent of the person to whom it pertains or is authorized by law. A general authorization for the release of medical or other information is not sufficient for this purpose. Hospital accepts no responsibility if the information is made available to any other person, INCLUDING THE PATIENT. Interpretation Summary * Name: BARRETT AUGUSTIN Study Date: 03/08/2017 07:58 AM BP: 103/63 mmHg * HR: 111 * : 1940 (M/d/yyyy) Gender: Female Height: 60 in * Age: 76 yrs Ethnicity: [place] Weight: 123 lb * Ordering Physician: Flaco Mays DO, FACC * Referring Physician: Flaco Mays DO, FACC * Performed By: Chucho Ambriz RCS * * Reason For Study: Fever, assess for Endocarditis, Abnormal EKG- assess for Wall Motion * BSA: 1.5 m2 * The study was technically adequate. * -- Conclusions -- * Sinus rhythm was present during the echocardiogram. * No regional wall motion abnormalities noted. * The left ventricle is hyperdynamic. * Ejection Fraction = >70 %. * There is mild mitral regurgitation. * There is mild tricuspid regurgitation. * Doppler findings do not suggest pulmonary hypertension. * There is a subtle linear echodensity on the aortic aspect of the aortic valve noted in the apical 3 chamber view (image 50/58) . A vegetation cannot be excluded. Procedure Details * A complete two-dimensional transthoracic echocardiogram was performed (2D, M-mode, Doppler and color flow Doppler). Left Ventricle * The left ventricle is normal in size. * There is normal left ventricular wall thickness. * The left ventricle is hyperdynamic. * Ejection Fraction = >70 %. * The left ventricular wall motion is normal. * No regional wall motion abnormalities noted. Right Ventricle * The right ventricle is normal size. * The right ventricular systolic function is normal as assessed by tricuspid annular plane systolic excursion (TAPSE) (normal >1.5 cm). Atria * The left atrial size is normal. * Right atrial size is normal. * A pacemaker lead was noted in the right atrium. * There is no evidence of atrial septal defect, but resolution does not allow assessment for a patent foramen ovale. Mitral Valve * The mitral valve leaflets are mildly thickened. * There is no mitral valve stenosis. * There is mild mitral regurgitation. Tricuspid Valve * The tricuspid valve is normal. * There is no tricuspid stenosis. * There is mild tricuspid regurgitation. * Doppler findings do not suggest pulmonary hypertension. Aortic Valve * The aortic valve is trileaflet. * There is a subtle linear echodensity on the aortic aspect of the aortic valve noted in the apical 3 chamber view (image 50/58) . A vegetation cannot be exluded. * Aortic stenosis is absent. * There is no significant aortic regurgitation. Pulmonic Valve * The pulmonary valve is not well seen, but the Doppler examination is normal without significant regurgitation or stenosis. Great Vessels * The aortic root and proximal ascending aorta are normal sized. Pericardium/Pleural * There is no pericardial effusion. Great Vessels * Normal inferior vena cava diameter and respiratory variation suggests normal central venous pressure. MMode 2D Measurements and Calculations IVSd 0.90 cm LVIDd 4.2 cm LVIDs 2.4 cm LVPWd 0.82 cm IVS/LVPW 1.1 FS 43.0 % EDV(Teich) 78.6 ml ESV(Teich) 20.0 ml EF(Teich) 74.5 % EDV(cubed) 74.1 ml ESV(cubed) 13.7 ml EF(cubed) 81.5 % LV mass(C)d 111.7 grams LV mass(C)dI 73.6 grams/m\S\2 SV(Teich) 58.6 ml SI(Teich) 38.6 ml/m\S\2 SV(cubed) 60.4 ml SI(cubed) 39.8 ml/m\S\2 Ao root diam 2.6 cm Ao root area 5.2 cm\S\2 LVOT diam 1.8 cm LVOT area 2.6 cm\S\2 LVAd ap4 21.6 cm\S\2 LVLd ap4 7.2 cm EDV(MOD-sp4) 52.6 ml EDV(sp4-el) 55.1 ml LVAs ap4 8.1 cm\S\2 LVLs ap4 5.6 cm ESV(MOD-sp4) 11.4 ml ESV(sp4-el) 10.1 ml EF(MOD-sp4) 78.4 % EF(sp4-el) 81.7 % LVAd ap2 17.3 cm\S\2 LVLd ap2 7.1 cm EDV(MOD-sp2) 35.1 ml EDV(sp2-el) 35.6 ml LVAs ap2 7.3 cm\S\2 LVLs ap2 4.9 cm ESV(MOD-sp2) 10.0 ml ESV(sp2-el) 9.1 ml EF(MOD-sp2) 71.7 % EF(sp2-el) 74.4 % LVLd %diff -0.51 % EDV(MOD-bp) 43.1 ml LVLs %diff -13.38 % ESV(MOD-bp) 10.7 ml EF(MOD-bp) 75.3 % SV(MOD-sp4) 41.2 ml SI(MOD-sp4) 27.2 ml/m\S\2 SV(MOD-sp2) 25.2 ml SI(MOD-sp2) 16.6 ml/m\S\2 SV(MOD-bp) 32.4 ml SI(MOD-bp) 21.4 ml/m\S\2 SV(sp4-el) 45.0 ml SI(sp4-el) 29.6 ml/m\S\2 SV(sp2-el) 26.5 ml SI(sp2-el) 17.5 ml/m\S\2 Doppler Measurements and Calculations MV E max modesta 79.5 cm/sec MV A max [place] 67.4 cm/sec MV E/A 1.2 MV dec time 0.19 sec Ao V2 max 164.4 cm/sec Ao max PG 10.8 mmHg Ao max PG (full) 4.6 mmHg JACKY(V,A) 2.0 cm\S\2 JACKY(V,D) 2.0 cm\S\2 LV V1 max PG 6.2 mmHg LV V1 max 124.2 cm/sec TR max [place] 267.4 cm/sec
--- NOTE | 2017-03-08 19:27 | DIAGNOSTIC IMAGING REPORT ---
CT OF THE HEAD WITHOUT CONTRAST CLINICAL HISTORY: Headache, endocarditis. COMPARISON STUDY: MRI of the brain April 04, 2011. CT DOSE: 537.48 mGy.cm TECHNIQUE: Helical axial images of the head were obtained without IV contrast. Automated exposure control was utilized for the study. A dose lowering technique was utilized adhering to the principles of ALARA. FINDINGS: No acute intracranial hemorrhage, midline shift or mass effect is present. 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 Evaluation for residual or recurrent tumor is suboptimal on this unenhanced exam but no mass is identified. Ventricular system is stable. Basilar cisterns are patent. There are no extra-axial collections. Mild white matter hypodensity suggests small vessel disease. There are no findings to suggest acute dural sinus thrombosis or acute territorial infarct. Visualized portions of the sinuses and mastoid are cells are clear. There are no significant calvarial abnormalities. IMPRESSION: 1. No acute intracranial findings. 2. Expected findings following left retromastoid craniotomy. Electronically signed by: Jaquan Arroyo M.D. 03/08/2017 7:26 PM Dictated Date/Time: 03/08/2017 7:13 PM
--- NOTE | 2017-03-08 19:56 | TEE ---
*NOTICE TO RECEIVING CONSTITUTION PARTY AGENCY This information is strictly Confidential and protected under [place] law. [place] law prohibits you from making any further disclosure of this information unless further disclosure is expressly permitted by the written consent of the person to whom it pertains or is authorized by law. A general authorization for the release of medical or other information is not sufficient for this purpose. Hospital accepts no responsibility if the information is made available to any other person, INCLUDING THE PATIENT. Interpretation Summary * Name: BARRETT AUGUSTIN Study Date: 03/08/2017 11:45 AM BP: 119/60 mmHg * Patient Location: E102 HR: 105 * : 1940 (M/d/yyyy) Gender: Female Height: 60 in * Age: 76 yrs Ethnicity: [place] Weight: 123 lb * Ordering Physician: Flaco Mays * Referring Physician: Self, Referred * Performed By: Jozef Lux RCS * * Reason For Study: Endocarditis * BSA: 1.5 m2 * -- Conclusions -- * The study is technically adequate for the referral indication. * Findings are consistent with aortic valve and right ventricular pacemaker lead vegetation. * The aortic valve is trileaflet. * There is a 0.4 cm x 0.16 cm mobile linear echodensity on the aortic aspect of the left coronary cusp of the aortic valve consistent if valvular strand and in the setting of fever consistent with vegetation (image 22/116) * Aortic stenosis and aortic regurgitation are absent. * A pacemaker lead is well visualized coursing from the superior vena cava to the right atrial appendage without evidence of vegetation. * Another pacemaker lead is visualized coursing to the right ventricular apex with complex mobile vegetation or thrombus in the right atrial portion of the lead (image 72/116). * No thrombus is detected in the left atrial appendage. * The atrial septum is aneurysmal. * A patent foramen ovale is present. * There is a mild right to left interatrial shunt noted with the administration of agitated saline contrast. Procedure Details * ROLANDO Probe #3 utilized for procedure. Time out was conducted at 1157 by the physician, nurse, and automotive drivability technician with positive identification of patient and procedure. Probe insertion time - 1209 Probe removed - 1258 * The study was performed at bedside. * Informed consent for Transesophageal Echocardiogram was obtained prior to the procedure. * An intravenous line was placed. A topical anesthetic agent was used for oropharangeal anesthesia. A bite block was inserted. * Fentanyl 75 mcg was administered for procedural sedation. * Midazolam 3 mg administered for sedation. * A multifrequency, multiplane transesopheageal echocardiographic endoscope was inserted and manipulated in the standard fashion to achieve multiplane views. * The transesophageal probe was passed without difficulty. * Contrast injection with agitated saline was performed. * The usual views were obtained; basal, mid-esophageal, transgastric and aortic views. * The patient tolerated the procedure well without evidence of orophangeal or esophageal trauma. * A 2D transesophageal echocardiogram was performed. * A 2D transesophageal echocardiogram with color flow Doppler was performed. Left Ventricle * The left ventricle is normal in size. * There is normal left ventricular wall thickness. * Left ventricular systolic function is normal. * Ejection Fraction = >70 %. * The left ventricular wall motion is normal. Right Ventricle * The right ventricle is normal in size and function. Atria * The left atrial size is normal. * No thrombus is detected in the left atrial appendage. * No left atrial mass or thrombus visualized. * Right atrial size is normal. * A pacemaker lead is well visualized coursing from the superior vena cava to the right atrial appendage without evidence of vegetation. Another pacemaker lead is visualized coursing to the right ventricular apex with complex mobile vegetation or thrombus in the right atrial portion of the lead (image 72/116). * The atrial septum is aneurysmal. * A patent foramen ovale is present. * There is a mild right to left interatrial shunt noted with the administration of agitated saline contrast. Mitral Valve * The mitral valve anatomy is normal. * There is no mitral valve prolapse present. * There is no vegetation seen on the mitral valve. * There is no mitral valve stenosis. * There is trace mitral regurgitation. Tricuspid Valve * The tricuspid valve is normal. * There is no tricuspid valve vegetation. * There is no tricuspid stenosis. * There is moderate tricuspid regurgitation. * The mechanism of the tricuspid regurgitation is that the excursion of the septal leaflet of the tricuspid valve is restricted by the right ventricular pacemaker lead. * The calculated right ventricular systolic pressure is at the upper limit of normal , 36 mm Hg. Aortic Valve * The aortic valve is trileaflet. * There is a 0.4 cm x 0.16 cm mobile linear echodensity on the aortic aspect of the left coronary cusp of the aortic valve consistent if valvular strand and in the setting of fever consistent with vegetation. * Aortic stenosis is absent. * No aortic regurgitation is present. Pulmonic Valve * The pulmonic valve is not well seen, but is grossly normal. Great Vessels * The aortic root is normal size. * There is mild nonmobile atheromatous disease in the visualized poriton of the descending thoracic aorta. Pericardium * There is no pericardial effusion. MMode 2D Measurements and Calculations Ao root diam 2.8 cm Ao root area 6.1 cm\S\2 asc Aorta Diam 2.6 cm
--- NOTE | 2017-03-08 19:59 | Progress Note ---
Medicine Progress Note Date & Time of Visit: Mar 08, 2017 at 14:10 . Subjective Admitted yesterday for evaluation of persistent fevers. ROLANDO performed today by Dr. Mays. Still a bit sedated at the time of my visit. Low-grade fever earlier today. No chest pain. No cough or shortness of breath. No nausea, vomiting, diarrhea. Intermittent headaches for past 1-2 weeks, unusual for her. . Objective Last 8 Hrs Date Time Temp Pulse Resp B/P (MAP) Pulse Ox O2 Delivery O2 Flow Rate FiO2 03/08/17 19:10 37.1 60 21 116/57 (76) 95 Room Air 03/08/17 16:00 Room Air 03/08/17 15:54 68 03/08/17 15:42 36.8 66 18 135/72 (93) 94 Room Air 03/08/17 14:33 95 Room Air 03/08/17 14:20 37.3 65 18 120/69 (86) 97 2.0 03/08/17 14:00 37.3 63 18 109/72 (84) 97 2.0 03/08/17 13:30 62 22 102/49 97 Nasal Cannula 2.0 03/08/17 13:15 37.5 63 22 105/59 93 Nasal Cannula 2.0 03/08/17 13:00 68 117/59 92 Nasal Cannula 03/08/17 12:55 73 26 138/74 95 Nasal Cannula 2.0 03/08/17 12:50 73 26 136/67 94 Nasal Cannula 2.0 03/08/17 12:46 70 26 131/65 94 Nasal Cannula 2.0 03/08/17 12:43 72 26 122/59 94 Nasal Cannula 2.0 03/08/17 12:40 72 24 138/59 95 Nasal Cannula 2.0 03/08/17 12:36 68 26 126/60 94 Nasal Cannula 2.0 03/08/17 12:33 70 26 129/56 94 Nasal Cannula 2.0 03/08/17 12:28 66 18 119/48 93 Nasal Cannula 2.0 03/08/17 12:25 67 17 117/66 94 Nasal Cannula 2.0 03/08/17 12:22 68 26 123/72 95 Nasal Cannula 2.0 03/08/17 12:18 66 22 105/62 94 Nasal Cannula 2.0 03/08/17 12:15 67 20 116/55 94 Nasal Cannula 2.0 03/08/17 12:12 66 18 120/55 93 Nasal Cannula 2.0 03/08/17 12:10 66 19 104/49 97 Nasal Cannula 2.0 03/08/17 12:08 70 22 128/66 98 Nasal Cannula 2.0 03/08/17 12:05 63 20 104/51 98 Nasal Cannula 2.0 03/08/17 12:00 Room Air Physical Exam: General- no acute distress Neck- no JVD Lungs- clear to auscultation Heart- regular, 2/6 systolic murmur at base Abdomen- normal bowel sounds, soft, nontender Extremities- no pretibial edema or calf tenderness; no splinter hemorrhages, Osler's nodes, [place] lesions Neuro- mildly sedated, oriented . Laboratory Results: Last 24 Hours Test 03/07/17 20:10 03/08/17 00:18 03/08/17 05:13 03/08/17 10:46 Urine Color YELLOW Urine Appearance CLEAR Urine pH 6.5 Urine Specific [place] 1.016 Urine Protein TRACE Urine Glucose (UA) NEG Urine Ketones NEG Urine Occult Blood NEG Urine Nitrite NEG Urine Bilirubin NEG Urine Urobilinogen NEG Urine Leukocyte Esterase NEG Urine WBC (Auto) 1-5 /hpf Urine RBC (Auto) 5-10 /hpf Urine Hyaline Casts (Auto) 1-5 /lpf Urine Epithelial Cells (Auto) 5-10 /lpf Urine Bacteria (Auto) NEG Total Creatine Kinase 111 U/L 115 U/L 136 U/L Creatine Kinase MB < 0.5 ng/ml < 0.5 ng/ml 0.8 ng/ml Creatine Kinase MB Ratio 0.6 Troponin I 0.021 ng/ml 0.053 ng/ml 0.043 ng/ml White Blood Count 6.93 K/uL Red Blood Count 3.99 M/uL Hemoglobin 12.6 g/dL Hematocrit 36.2 % Mean Corpuscular Volume 90.7 fL Mean Corpuscular Hemoglobin 31.6 pg Mean Corpuscular Hemoglobin Concent 34.8 g/dl RDW Standard Deviation 41.4 fL RDW Coefficient of Variation 12.4 % Platelet Count 124 K/uL Mean Platelet Volume 10.2 fL Prothrombin Time 18.5 SECONDS Prothromb Time International Ratio 1.7 Sodium Level 137 mmol/L Potassium Level 3.5 mmol/L Chloride Level 105 mmol/L Carbon Dioxide Level 25 mmol/L Anion Gap 7.0 mmol/L Blood Urea Nitrogen 17 mg/dl Creatinine 1.20 mg/dl Est Creatinine Clear Calc Drug Dose 31.6 ml/min Estimated GFR () 50.8 Estimated GFR (Non- 43.9 BUN/Creatinine Ratio 14.4 Random Glucose 121 mg/dl Calcium Level 7.2 mg/dl Magnesium Level 1.7 mg/dl Total Bilirubin 0.6 mg/dl Direct Bilirubin 0.1 mg/dl Aspartate Amino Transf (AST/SGOT) 48 U/L Alanine Aminotransferase (ALT/SGPT) 46 U/L Alkaline Phosphatase 50 U/L Total Protein 5.5 gm/dl Albumin 2.6 gm/dl Test 03/08/17 16:35 Erythrocyte Sedimentation Rate 14 mm/hr Total Creatine Kinase 135 U/L Creatine Kinase MB 0.9 ng/ml Creatine Kinase MB Ratio 0.7 Troponin I 0.028 ng/ml Date/Time Source Procedure Growth Status 03/07/17 20:00 Blood Blood Culture Pending Received Assessment & Plan ENDOCARDITIS Intermittent fevers over last 2 weeks. Blood cultures obtained at time of admission-results pending. Started empirically on intravenous vancomycin and -[id number]- aztreonam [ error CHRISTOPHER 03/09/17 14:27 ] Transesophageal echocardiogram today demonstrated apparent vegetations of RV pacemaker lead as well as aortic valve. Further recommendations per Cardiology. HEADACHES Check CT to rule out embolic event, bleed. ATRIAL FIBRILLATION Currently in normal sinus rhythm. Continue digoxin. 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 HYPERTENSION Continue losartan. CKD III Serum creatinine stable at 1.2. Follow. VTE PROPHYLAXIS Warfarin being held as discussed above. SCD's. Ambulate. DISPOSITION Anticipated transfer to [facility] for removal of pacemaker lead. Family Medicine follow-up with Dr. Benito. Cardiology follow-up with Dr. Garcia. . Current Inpatient Medications: Current Inpatient Medications Medications (Trade) Dose Ordered Sig/Cynthia Route Start Time Stop Time Status Last Admin Dose Admin Ioversol (Optiray 320) 100 ml UD PRN IV 03/07/17 18:45 03/11/17 18:44 Potassium Chloride/Sodium Chloride 1,000 ml @ 100 mls/hr Q10H IV 03/07/17 23:15 04/06/17 23:14 03/08/17 18:30 100 MLS/HR Acetaminophen (Tylenol Tab) 650 mg Q4H PRN PO 03/07/17 22:15 04/06/17 22:14 03/08/17 15:53 650 MG Ondansetron HCl (Zofran Inj) 4 mg Q6H PRN IV 03/07/17 22:15 04/06/17 22:14 Aztreonam 1000 mg/ Dextrose 110 ml @ 100 mls/hr Q8H IV 03/08/17 02:00 04/19/17 01:59 03/08/17 17:41 100 MLS/HR Cetirizine HCl (zyrTEC TAB) 10 mg DAILY PO 03/08/17 09:00 04/07/17 08:59 Future Hold Cyanocobalamin (Vitamin B-12 Tab) 100 mcg DAILY PO 03/08/17 09:00 04/07/17 08:59 03/08/17 07:36 100 MCG Digoxin (Lanoxin Tab) 0.125 mg DAILY@1600 PO 03/08/17 16:00 04/07/17 15:59 03/08/17 15:54 0.125 MG Flecainide Acetate (Tambocor Tab) 50 mg QPM PO 03/08/17 21:00 04/07/17 20:59 03/08/17 19:45 50 MG Flecainide Acetate (Tambocor Tab) 100 mg QAM PO 03/08/17 09:00 04/07/17 08:59 03/08/17 07:36 100 MG Fluticasone Propionate (Flonase Nasal [place]) 2 sprays DAILY PRN TAMERA 03/07/17 22:15 04/06/17 22:14 Levothyroxine Sodium (Synthroid Tab) 100 mcg DAILYBB PO 03/08/17 06:00 04/07/17 06:59 Future Hold 03/08/17 07:42 100 MCG Loratadine (Claritin Tab) 10 mg DAILY PO 03/08/17 09:00 04/07/17 08:59 03/08/17 07:36 10 MG Losartan Potassium (coZAAR TAB) 100 mg DAILY PO 03/08/17 09:00 04/07/17 08:59 03/08/17 07:37 100 MG Multivitamins/ Minerals (Multivitamin W/ Minerals Tab) 1 tab DAILY PO 03/08/17 09:00 04/07/17 08:59 03/08/17 07:37 1 TAB Pravastatin Sodium (Pravachol Tab) 20 mg QPM PO 03/08/17 21:00 04/07/17 20:59 03/08/17 19:45 20 MG Spironolactone (Aldactone Tab) 25 mg DAILY PO 03/08/17 09:00 04/07/17 08:59 03/08/17 07:37 25 MG Albuterol (Ventolin Hfa Inhaler) 2 puffs QID PRN INH 03/07/17 22:15 04/06/17 22:14 Miscellaneous Information (Order Awaiting Action) 1 ea QS N/A 03/08/17 00:00 04/07/17 00:00 Vancomycin HCl (Consult) 1 ea UD PRN N/A 03/07/17 23:45 04/06/17 23:44 Aztreonam (Consult) 1 ea UD PRN N/A 03/07/17 23:45 04/06/17 23:44 Vancomycin HCl 750 mg/Sodium Chloride 265 ml @ 125 mls/hr DAILY@2200 IV 03/08/17 22:00 04/19/17 21:59 Sodium Chloride 500 ml @ 250 mls/hr Q2H IV 03/08/17 18:30 03/08/17 20:29 03/08/17 18:30 250 MLS/HR
--- NOTE | 2017-03-08 20:29 | Cardiology Consultation ---
Cardiology Consultation Date of Consultation: Mar 08, 2017 History of Present Illness Patient is a 76 year old female seen in cardiology consultation per the request of Dr. Smith for evaluation of fever. The patient follows with Dr. Devyn Garcia of our practice for a history of paroxysmal atrial fibrillation for which she is on a rhythm control strategy with a combination of flecainide and digoxin. She has a history of tachycardia , bradycardia syndrome with past dual-chamber Medtronic pacemaker insertion at [facility] in 2012. Her history is also notable for prior meningioma resection. The patient was seen as an acute visit to cardiology clinic yesterday 03/07/2017 for complaint of worsening shortness of breath with exertion over the last several months that is been progressive. Her last few days she had been expressing shortness of breath with minimal exertion such as walking on flat ground. She notes no recent chest discomfort. She noted a recent febrile illness or last 48 hours with Raman's, fevers, and chills. Her vital signs taken in the cardiology clinic yesterday 03/07/17 included a temperature of 103 F. She denies any cough. She denies dysuria. She denies pain in her back, and denies dental pain. Prior to the onset of her symptoms she had been traveling in the [place] in Nov, 2016 on a cruise. Her reports that while visiting [employer] in [place] she has syncopal episode. His presumed to be due to dehydration because of the excessive heat. Within 2 hours the patient recovered and had no recurrent episodes. History Past Medical History: 1. Paroxysmal atrial fibrillation, on chronic anticoagulations Coumadin 2. Tachycardia bradycardia syndrome 3. Hypertension 4. Tricuspid regurgitation Past Surgical History: 1. Total hysterectomy 1993 2. Tonsillectomy as a child 3. Dual-chamber Medtronic pacemaker placed generator 2012, [facility] Social History: Patient is a nonsmoker She is an occasional glass of one evening Family History: Mother: History of heart disorder, details unknown as well as hypertension Father passed with myocardial infarction age 70 Further past with melanoma age 34 Review Of Systems See above for pertinent positives & negatives. A total of 10 systems reviewed and were otherwise negative. Allergies Coded Allergies: Cephalosporins (Verified Allergy, Intermediate, HIVES, 03/07/17) Penicillins (Verified Allergy, Intermediate, HIVES, 03/07/17) Lisinopril (Verified Allergy, Unknown, UNKNOWN, 03/07/17) Medications Reported Home Medications Medications Dose Route/Sig Max Daily Dose Days Date Category Dose Instructions Proair Respiclick (Albuterol Sulfate) 108 Mcg/Act Aer 2 Puffs INH QID PRN 03/07/17 Reported Biotin 5000 (Biotin) 5 Mg Cap 5,000 Mcg PO Q2D 03/07/17 Reported Centrum Adults (Multiple Vitamins W/ Minerals) 1 Tab Tab 1 Tab PO DAILY 03/07/17 Reported Caltrate 600+D 600-400 mg-Unit (Calcium Carbonate-Vitamin D) 1 Chw Chw 1 Tab PO DAILY 03/07/17 Reported Vitamin B-12 (Cyanocobalamin) 100 Mcg Tab 100 Mcg PO DAILY 03/07/17 Reported Flonase Allergy Relief (Fluticasone Propionate (Nasal)) 50 Mcg/Act Spr 2 Sprays TAMERA DAILY PRN 03/07/17 Reported Clobetasol Propionate 45 Appln/15 Gm Oint 1 Appln TOP BID PRN 30 03/07/17 Reported Melatonin 10 Mg Tab 10 Mg PO HS 03/07/17 Reported Zyrtec (Cetirizine HCl) 10 Mg Tab 10 Mg PO DAILY 03/07/17 Reported Claritin (Loratadine) 10 Mg Tab 10 Mg PO DAILY 03/07/17 Reported Aldactone (Spironolactone) 25 Mg Tab 25 Mg PO DAILY 04/09/16 Reported Jantoven (Warfarin Sodium) 2.5 Mg Tab 1.25 Mg PO WK 04/09/16 Reported friday only Jantoven (Warfarin Sodium) 2.5 Mg Tab 2.5 Mg PO 6XWK 04/09/16 Reported every day but friday Pravachol (Pravastatin Sodium) 20 Mg Tab 20 Mg PO QPM 04/09/16 Reported Digitek (Digoxin) 0.125 Mg Tab 0.125 Mg PO DAILY 04/09/16 Reported Hctz (Hydrochlorothiazide) 12.5 Mg Cap 12.5 Mg PO 2XWK 04/09/16 Reported Cozaar (Losartan Potassium) 100 Mg Tab 100 Mg PO DAILY 04/09/16 Reported Restasis Eye Drops (Cyclosporine) Soln 1 Drop OP BID 04/09/16 Reported Synthroid (Levothyroxine Sodium) 100 Mcg Tab 100 Mcg PO DAILY 04/09/16 Reported Tambocor (Flecainide Acetate) 50 Mg Tab 50 Mg PO QPM 04/09/16 Reported Tambocor (Flecainide Acetate) 50 Mg Tab 100 Mg PO QAM 04/09/16 Reported Physical Exam Vital Signs (Last 8hrs): Last 8 Hrs Date Time Temp Pulse Resp B/P (MAP) Pulse Ox O2 Delivery O2 Flow Rate FiO2 03/08/17 19:10 37.1 60 21 116/57 (76) 95 Room Air 03/08/17 16:00 Room Air 03/08/17 15:54 68 03/08/17 15:42 36.8 66 18 135/72 (93) 94 Room Air 03/08/17 14:33 95 Room Air 03/08/17 14:20 37.3 65 18 120/69 (86) 97 2.0 03/08/17 14:00 37.3 63 18 109/72 (84) 97 2.0 03/08/17 13:30 62 22 102/49 97 Nasal Cannula 2.0 03/08/17 13:15 37.5 63 22 105/59 93 Nasal Cannula 2.0 03/08/17 13:00 68 117/59 92 Nasal Cannula 03/08/17 12:55 73 26 138/74 95 Nasal Cannula 2.0 03/08/17 12:50 73 26 136/67 94 Nasal Cannula 2.0 03/08/17 12:46 70 26 131/65 94 Nasal Cannula 2.0 03/08/17 12:43 72 26 122/59 94 Nasal Cannula 2.0 03/08/17 12:40 72 24 138/59 95 Nasal Cannula 2.0 03/08/17 12:36 68 26 126/60 94 Nasal Cannula 2.0 03/08/17 12:33 70 26 129/56 94 Nasal Cannula 2.0 03/08/17 12:28 66 18 119/48 93 Nasal Cannula 2.0 03/08/17 12:25 67 17 117/66 94 Nasal Cannula 2.0 03/08/17 12:22 68 26 123/72 95 Nasal Cannula 2.0 03/08/17 12:18 66 22 105/62 94 Nasal Cannula 2.0 03/08/17 12:15 67 20 116/55 94 Nasal Cannula 2.0 03/08/17 12:12 66 18 120/55 93 Nasal Cannula 2.0 03/08/17 12:10 66 19 104/49 97 Nasal Cannula 2.0 General Appearance: Alert and Oriented x3. NAD. Head: Normocephalic Atraumatic. Eyes: PERRLA, EOMI, conjunctiva and sclera clear Neck: Supple. No carotid bruits noted. No JVD. No HJD. Respiratory: Breath sounds clear to auscultation bilaterally. No w/r/r. Cardiovascular: Reg rate and rhythm. S1 and S2 noted. No murmurs, rubs, gallops. PMI non displace. Abdomen: Normal bowel sounds, soft nontender. no abdominal bruits. Extremities: No edema, no clubbing or cyanosis. distal pulses 2/4 bilaterally. Neuro: No focal deficits. Psychiatric: Normal affect. Data Last Resulted 03/08/17 05:13 Last Resulted 03/08/17 05:13 Past 24 Hours Test 03/08/17 00:18 03/08/17 05:13 03/08/17 10:46 03/08/17 16:35 Range/Units Creatine Kinase MB < 0.5 L < 0.5 L 0.8 0.9 0.5-3.6 ng/ml Creatine Kinase MB Ratio 0.6 0.7 0-3.0 Total Creatine Kinase 111 115 136 135 26-192 U/L Troponin I 0.021 0.053 *H 0.043 0.028 0-0.045 ng/ml Prothromb Time International Ratio 1.7 H 0.9-1.1 Prothrombin Time 18.5 H 9.0-12.0 SECONDS Erythrocyte sedimentation rate: Normal, 14 mm/h EKG performed in the office on 03/07/17, with findings of age-indeterminate septal infarction pattern, poor R-wave progression, also lateral ST depression, a little bit worse than baseline, and suggestive of ischemia. EKG performed today 03/08/17 reveals incomplete right bundle branch block pattern , lateral ST changes are present, but less pronounced, age-indeterminate inferior infarction pattern also noted. Telemetry reviewed: Stable sinus rhythm Pacemaker interrogation completed as an outpatient on 03/07/17: Submitted generator longevity 13 years, predominant rhythm was sinus rhythm 85% the time and atrial sensed and ventricular sensed. She is atrial paced 13.6%. Minimal atrial arrhythmias noted with only 2 episodes the longest of which lasted one hour and 20 minutes in December 2016. One episode in January 2017 lasted 1 minute and 54 seconds. Transthoracic echocardiogram revealed normal left ventricular wall motion, hyperdynamic systolic function greater than 70%. Mild MR, mild TR. Summary transesophageal echo cardiac exam performed earlier today: The aortic valve is trileaflet. There is a 0.4 cm x 0.16 cm mobile linear echodensity on the aortic aspect of the left coronary cusp of the aortic valve consistent if valvular strand and in the setting of fever consistent with vegetation. Aortic stenosis and aortic regurgitation are absent. A pacemaker lead is well visualized coursing from the superior vena cava to the right atrial appendage without evidence of vegetation. Another pacemaker lead is visualized coursing to the right ventricular apex with complex mobile vegetation or thrombus in the right atrial portion of the lead (image 72/116). No thrombus is detected in the left atrial appendage. The atrial septum is aneurysmal. A patent foramen ovale is present. There is a mild right to left interatrial shunt noted with the administration of agitated saline contrast. Assessment & Plan Impression: 76 to a female 1. Febrile illness, with transesophageal echocardiogram findings compatible with aortic valve regurgitation, right ventricular pacemaker lead vegetation 2. Paroxysmal atrial fibrillation, currently in sinus rhythm, atrial fibrillation burden is low based on historical device interrogations. No left atrial appendage thrombus noted on transesophageal echocardiogram. INR is subtherapeutic. 3. Small patent foramen ovale, with mild [id number] intracardiac shunt documented 4. History of tachycardia-bradycardia syndrome, history of dual-chamber permanent pacemaker Discussion/recommendations: The patient was seen briefly by the undersigned in cardiology clinic yesterday along with Cindy SOLORZANO. She described feeling "terrible". She felt so poorly the evening before that her abated bring her to the emergency department. Emergency department evaluation was recommended yesterday, the patient was still febrile on arrival, and her MAXIMUM TEMPERATURE was 39.3 degrees C, heart arrival, the temperature resolved after a dose of Tylenol at about 4 AM 03/08/17. The patient underwent transesophageal echocardiogram performed by the undersigned earlier today. 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 Erythrocyte sedimentation rate was added to her labs after the transesophageal echocardiogram was completed and this is within normal limits. Blood cultures were drawn on admission and are negative thus far. Patient is to remain on broad-spectrum antibiotics. Her anticoagulation is on hold at present, with anticipated need for transfer to tertiary center for removal of her pacemaker system. Due to her recent complaint of headache, she had a noncontrast CT of the brain which was within normal limits without acute intracranial abnormality. Further recommendations be forthcoming as her hospitalization develops. I recommend keeping her at [facility] for the time being, however I did discuss with the patient and her regarding the need for anticipated transfer to a tertiary care center for pacemaker explant. She is hemodynamically stable for now and is to remain on the telemetry simpson. She reports feeling much improved. Matt Mays DO ADDENDUM, 03/09/17: Blood cultures remain negative thus far. She was febrile on presentation to the outpt cardiology clinic 03/07/17 , but no fever during day yesterday or overnight and today. ESR is negative but CRP is elevated. Continue broad spectrum antibiotics with aztreonam and vancomycin for now. Given lead involvement, pacemaker system will need to be removed, and this requires transfer to tertiary center where this is performed by EP in the OR with CT surgery on standby. Patient is not pacemaker dependent. Atrial pacing about 16% of time on recent device check and rarely paces from ventricle. Pt had device placed in 07/2012 at [facility] Dr Garcia's clinic noted dated describes a Holter monitor at that time documenting conversion pauses when pt converted from AF to SR with pauses of 2-5 seconds in duration. Device performed at [facility] with MRI compatible device placed due to her need for future MRIs studies to follow her meningioma. It does not appear that patient will need heart rate support with a temporary wire after device is explanted. Will have to determine need for placing another device soon, after a few days of antiobiotics post explant, or if this can wait. INR is 1.6 , off of coumadin due to anticipated device extraction. Not on bridge therapy due to endocarditis, will differ decision about starting heparin bridge to [facility] team when she arrives there. No [place] thrombus on ROLANDO. I think her INR of 1.6 adequately prophylaxes her for DVT for now. Case discussed with Dr Li conductor and engineer for cardiology at [facility] who accepts pt in transfer pending bed availability. Transfer to [facility] by ACL[facility] ground when bed is available Edith Mays DO
[2017-03-08] MEDS ORDERED: FLECAINIDE ACETATE 100 MG TAB PO SCH (21:00)
[2017-03-08] MEDS ORDERED: PRAVASTATIN SOD 20 MG TAB PO SCH (21:00)
[2017-03-08] MEDS ORDERED: NON-FORMULARY MEDICATION (Melatonin 10 MG) PO SCH (21:00)
[2017-03-08] MEDS ORDERED: VANCOMYCIN INJ 750 MG in SODIUM CHLORIDE 0.9% 250ML 250 ML IV SCH (22:00)
[2017-03-08] MEDS ORDERED: SENNA 8.6 MG TAB PO SCH (22:00)
[2017-03-08] MEDS ORDERED: VANCOMYCIN INJ 700 MG in SODIUM CHLORIDE 0.9% 250ML 250 ML IV SCH (22:00)
[2017-03-09] MEDS: AZTREONAM IV 1,000 MG in DEXTROSE 5% 100ML 100 ML IV SCH ×3 (02:20→18:37)
[2017-03-09 04:15] VITALS: BP 133/68; PULSE 62; TEMP 36.9; O2SAT 95
[2017-03-09] MEDS: NSS + 20MEQ KCL 1000ML 1,000 ML IV SCH (05:19)
[2017-03-09 06:55] LABS: HEMATOCRIT 37.3 % (37-47); MEAN CELL VOLUME 92.1 fL (80-100); MEAN CORPUSCULAR HEMOGLOBIN 29.4 pg (25-34); MEAN CORPUSCULAR HGB CONC 31.9 g/dl (32-36); MEAN PLATELET VOLUME 10.8 fL (7.4-10.4); PLATELET COUNT 136 K/uL (130-400); RED BLOOD COUNT 4.05 M/uL (4.2-5.4); WHITE BLOOD COUNT 4.08 K/uL (4.8-10.8)
[2017-03-09 07:06] LABS: INR 1.6 (0.9-1.1)
[2017-03-09 07:37] LABS: BUN/CREATININE RATIO 16.8 (10-20); C-REACTIVE PROTEIN 11.8 mg/dl (0-0.29); CALCIUM 7.5 mg/dl (8.5-10.1); CREATININE 0.85 mg/dl (0.60-1.20); POTASSIUM 4.2 mmol/L (3.5-5.1)
[2017-03-09 07:49] VITALS: BP 159/76; PULSE 68; TEMP 36.8; O2SAT 97
[2017-03-09] MEDS: RESTASIS~ORDER AWAITING ACTION SCH ×3 (08:00→15:29)
[2017-03-09] MEDS: LORATADINE 10 MG TAB PO SCH (09:00)
[2017-03-09] MEDS: FLECAINIDE ACETATE 100 MG TAB PO SCH (09:32)
[2017-03-09] MEDS: SPIRONOLACTONE 25 MG TAB PO SCH (09:32)
[2017-03-09] MEDS: CEROVITE ADV FORMULA TAB PO SCH (09:32)
[2017-03-09] MEDS: CYANOCOBALAMIN 100 MCG TAB (VIT B-12) PO SCH (09:33)
[2017-03-09] MEDS: LOSARTAN POTASSIUM 50 MG TAB PO SCH (09:33)
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
[2017-03-09 11:28] VITALS: BP 147/72; PULSE 65; TEMP 36.9; O2SAT 97
[2017-03-09] MEDS: ACETAMINOPHEN 325 MG TAB PO PRN (14:06)
--- NOTE | 2017-03-09 14:20 | Progress Note ---
Medicine Progress Note Date & Time of Visit: Mar 09, 2017 at 11:00 . Subjective Tired. Chilled. No fever or sweats. (Last temp > 38 was about 36 hours ago). No chest pain. No cough or SOB. No nausea, vomiting, diarrhea. No further headaches. Noted lesion on left leg yesterday. . Objective Last 8 Hrs Date Time Temp Pulse Resp B/P (MAP) Pulse Ox O2 Delivery O2 Flow Rate FiO2 03/09/17 12:00 Room Air 03/09/17 11:28 36.9 65 18 147/72 (97) 97 03/09/17 08:00 Room Air 03/09/17 07:49 36.8 68 18 159/76 (103) 97 Room Air Physical Exam: General- no distress Neck- no JVD Lungs- clear to auscultation Heart- regular, 2/6 systolic murmur at base Abdomen- normal bowel sounds, soft, nontender Extremities- no pretibial edema or calf tenderness; no splinter hemorrhages, Osler's nodes, [place] lesions; erythematous lesion left leg inferior to knee, measures about 2 x 4 cm, erythematous, mild tenderness Neuro- alert, oriented . Laboratory Results: Last 24 Hours Test 03/08/17 16:35 03/09/17 06:15 Erythrocyte Sedimentation Rate 14 mm/hr Total Creatine Kinase 135 U/L Creatine Kinase MB 0.9 ng/ml Creatine Kinase MB Ratio 0.7 Troponin I 0.028 ng/ml White Blood Count 4.08 K/uL Red Blood Count 4.05 M/uL Hemoglobin 11.9 g/dL Hematocrit 37.3 % Mean Corpuscular Volume 92.1 fL Mean Corpuscular Hemoglobin 29.4 pg Mean Corpuscular Hemoglobin Concent 31.9 g/dl RDW Standard Deviation 43.2 fL RDW Coefficient of Variation 12.8 % Platelet Count 136 K/uL Mean Platelet Volume 10.8 fL Prothrombin Time 17.0 SECONDS Prothromb Time International Ratio 1.6 Sodium Level 141 mmol/L Potassium Level 4.2 mmol/L Chloride Level 112 mmol/L Carbon Dioxide Level 24 mmol/L Anion Gap 5.0 mmol/L Blood Urea Nitrogen 14 mg/dl Creatinine 0.85 mg/dl Est Creatinine Clear Calc Drug Dose 44.3 ml/min Estimated GFR () 77.1 Estimated GFR (Non- 66.6 BUN/Creatinine Ratio 16.8 Random Glucose 79 mg/dl Calcium Level 7.5 mg/dl C-Reactive Protein 11.80 mg/dl Assessment & Plan ENDOCARDITIS Intermittent fevers over last 2 weeks. Blood cultures obtained at time of admission- negative after ~ 36 hrs. ESR 14. C-reactive protein 11.8. Started empirically on intravenous vancomycin and -[id number]- aztreonam [ error CHRISTOPHER 03/09/17 14:27 ] Transesophageal echocardiogram 03/08/17 demonstrated apparent vegetations of RV pacemaker lead as well as aortic valve. Arrangements being made for transfer to [facility] for further evaluation and management. HEADACHES CT head negative for embolic event, bleed. ATRIAL FIBRILLATION Currently in normal sinus rhythm. Continue digoxin. Warfarin held due to endocarditis and anticipated need for removal of pacemaker lead. HYPERTENSION Continue losartan. CKD III BUN 19, creatinine 1.3 at time of admission. Probable volume depletion. HCTZ held. IV fluids administered. Serum creatinine 0.85 today. Stop IV fluids. Follow. VTE PROPHYLAXIS Warfarin being held as discussed above. SCD's. Ambulate. DISPOSITION Arrangements being made for transfer to [facility] for further evaluation and management. Family Medicine follow-up with Dr. Benito. Cardiology follow-up with Dr. Garcia. . Consultants: Cardiology with Dr. Mays. . Procedures: cardiac monitoring IV fluids IV meds transesophageal echocardiogram . Current Inpatient Medications: Current Inpatient Medications Medications (Trade) Dose Ordered Sig/Cynthia Route Start Time Stop Time Status Last Admin Dose Admin Ioversol (Optiray 320) 100 ml UD PRN IV 03/07/17 18:45 03/11/17 18:44 Acetaminophen (Tylenol Tab) 650 mg Q4H PRN PO 03/07/17 22:15 04/06/17 22:14 03/09/17 14:06 650 MG Ondansetron HCl (Zofran Inj) 4 mg Q6H PRN IV 03/07/17 22:15 04/06/17 22:14 Aztreonam 1000 mg/ Dextrose 110 ml @ 100 mls/hr Q8H IV 03/08/17 02:00 04/19/17 01:59 03/09/17 09:35 100 MLS/HR Cetirizine HCl (zyrTEC TAB) 10 mg DAILY PO 03/08/17 09:00 04/07/17 08:59 Future Hold Cyanocobalamin (Vitamin B-12 Tab) 100 mcg DAILY PO 03/08/17 09:00 04/07/17 08:59 03/09/17 09:33 100 MCG Digoxin (Lanoxin Tab) 0.125 mg DAILY@1600 PO 03/08/17 16:00 04/07/17 15:59 03/08/17 15:54 0.125 MG Flecainide Acetate (Tambocor Tab) 50 mg QPM PO 03/08/17 21:00 04/07/17 20:59 03/08/17 19:45 50 MG Flecainide Acetate (Tambocor Tab) 100 mg QAM PO 03/08/17 09:00 04/07/17 08:59 03/09/17 09:32 100 MG Fluticasone Propionate (Flonase Nasal [place]) 2 sprays DAILY PRN ATMERA 03/07/17 22:15 04/06/17 22:14 Levothyroxine Sodium (Synthroid Tab) 100 mcg DAILYBB PO 03/08/17 06:00 04/07/17 06:59 Future Hold 03/08/17 07:42 100 MCG Loratadine (Claritin Tab) 10 mg DAILY PO 03/08/17 09:00 04/07/17 08:59 03/08/17 07:36 10 MG Losartan Potassium (coZAAR TAB) 100 mg DAILY PO 03/08/17 09:00 04/07/17 08:59 03/09/17 09:33 100 MG Multivitamins/ Minerals (Multivitamin W/ Minerals Tab) 1 tab DAILY PO 03/08/17 09:00 04/07/17 08:59 03/09/17 09:32 1 TAB Pravastatin Sodium (Pravachol Tab) 20 mg QPM PO 03/08/17 21:00 04/07/17 20:59 03/08/17 19:45 20 MG Spironolactone (Aldactone Tab) 25 mg DAILY PO 03/08/17 09:00 04/07/17 08:59 03/09/17 09:32 25 MG Albuterol (Ventolin Hfa Inhaler) 2 puffs QID PRN INH 03/07/17 22:15 04/06/17 22:14 Miscellaneous Information (Order Awaiting Action) 1 ea QS N/A 03/08/17 00:00 04/07/17 00:00 Vancomycin HCl (Consult) 1 ea UD PRN N/A 03/07/17 23:45 04/06/17 23:44 Aztreonam (Consult) 1 ea UD PRN N/A 03/07/17 23:45 04/06/17 23:44 Senna (Senokot Tab) 25.8 mg HS PO 03/08/17 22:00 04/07/17 21:59 03/08/17 22:08 25.8 MG Vancomycin HCl 1000 mg/Sodium Chloride 270 ml @ 125 mls/hr DAILY@1800 IV 03/09/17 18:00 04/20/17 17:59
--- NOTE | 2017-03-09 14:32 | Discharge Summary ---
Discharge Summary Date of Service Mar 09, 2017. 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 Procedures: cardiac monitoring IV fluids IV meds transesophageal echocardiogram . Consultations: Cardiology with Dr. Mays. . Pending Studies/Follow-Up: blood cultures x 2 drawn 03/07/17 . Admission Information HPI (per Admitting provider): She is a 76-year-old female with significant past medical history including atrial fibrillation, on anticoagulation, mitral valve regurgitation, hypothyroidism, hypertension, chronic kidney disease stage III. Apparently has been complaining of shortness of breath for the last 2 days. Her shortness of breath is getting worse and now she gets shortness of breath when walking on the same floor. For the last 2 days, she also developed fever and she documented temperature to be 103.5 degrees. The fever was associated with severe chills and shakes and also had some nausea with it but did not have any cough, any phlegm, any sore throat, any runny nose, sneezing, any problem with urine and/or bowel. She does not have any rash. She was seen in the cardiology clinic today and from there she was sent to Emergency Room for evaluation and workup for probable endocarditis. In the ER, she was hemodynamically stable and her blood counts were fairly unremarkable except creatinine of 1.[address] scan of the chest negative for any pulmonary embolism. She was started with intravenous aztreonam and vancomycin after taking blood cultures and she was admitted to telemetry unit for continuation of care. . Physical Exam (per Admitting): GENERAL: On examination in the Emergency Room, she was not having any acute distress except she complained of some chills. VITAL SIGNS: Temperature 39.3, pulse was 71, blood pressure 131/58, saturation 94% on room air. HEENT: Unremarkable. NECK: Supple. No JVD, no bruit. CHEST: Clear to auscultation bilaterally. HEART: S1, S2 regular with a 2/6 systolic murmur over precordium. ABDOMEN: Soft, benign, nontender, no organomegaly. Bowel sounds present. EXTREMITIES: Trace edema bilaterally. Peripheral pulses were palpable. MUSCULOSKELETAL SYSTEM: Did not show any acute arthritis involving any joint. CENTRAL NERVOUS SYSTEM: She was alert, awake, oriented x3. No focal sensory and/or motor deficit appreciated. Generally, she did not have any rash and/or enlargement of lymph nodes. . Hospital Course ENDOCARDITIS Presented with intermittent fevers over last 2 weeks. Blood cultures obtained at time of admission- negative after ~ 36 hrs. ESR 14. C-reactive protein 11.8. Started empirically on intravenous vancomycin and aztreonam. Transesophageal echocardiogram 03/08/17 demonstrated apparent vegetations of RV pacemaker lead as well as aortic valve. Arrangements being made for transfer to [facility] for further evaluation and management. HEADACHES CT head negative for embolic event, bleed. ATRIAL FIBRILLATION Currently in normal sinus rhythm. Continue digoxin and flecainide. Warfarin held due to endocarditis and anticipated need for removal of pacemaker lead. HYPERTENSION Continue losartan. CKD III BUN 19, creatinine 1.3 at time of admission. Probable volume depletion. HCTZ held. IV fluids administered. Serum creatinine 0.85 today. Stop IV fluids. Follow. HYPOTHYROIDISM TSH at time of admission 0.107. Free T4 1.77. Levothyroxine held. Levothyroxine should be restarted at reduced dose once TSH rises. VTE PROPHYLAXIS Warfarin being held as discussed above. SCD's. Ambulate. DISPOSITION Arrangements being made for transfer to [facility] for further evaluation and management. Family Medicine follow-up with Dr. Benito. Cardiology follow-up with Dr. Garcia. . Total time spent on discharge = 45 min. This includes examination of the patient, discharge planning, medication reconciliation, and communication with other providers. . Discharge Instructions Vitals: SCU routine Allergies: cephalosporins, lisinopril, penicillins Activity: as tolerated Diet: AHA IV: saline lock VTE prophylaxis: SCD's Reported Home Medications Medications Dose Route/Sig Max Daily Dose Days Date Category Dose Instructions Proair Respiclick (Albuterol Sulfate) 108 Mcg/Act Aer 2 Puffs INH QID PRN 03/07/17 Reported Biotin 5000 (Biotin) 5 Mg Cap 5,000 Mcg PO Q2D 03/07/17 Reported Centrum Adults (Multiple Vitamins W/ Minerals) 1 Tab Tab 1 Tab PO DAILY 03/07/17 Reported Caltrate 600+D 600-400 mg-Unit (Calcium Carbonate-Vitamin D) 1 Chw Chw 1 Tab PO DAILY 03/07/17 Reported Vitamin B-12 (Cyanocobalamin) 100 Mcg Tab 100 Mcg PO DAILY 03/07/17 Reported Flonase Allergy Relief (Fluticasone Propionate (Nasal)) 50 Mcg/Act Spr 2 Sprays TAMERA DAILY PRN 03/07/17 Reported Clobetasol Propionate 45 Appln/15 Gm Oint 1 Appln TOP BID PRN 30 03/07/17 Reported Melatonin 10 Mg Tab 10 Mg PO HS 03/07/17 Reported Zyrtec (Cetirizine HCl) 10 Mg Tab 10 Mg PO DAILY 03/07/17 Reported Claritin (Loratadine) 10 Mg Tab 10 Mg PO DAILY 03/07/17 Reported Aldactone (Spironolactone) 25 Mg Tab 25 Mg PO DAILY 04/09/16 Reported Jantoven (Warfarin Sodium) 2.5 Mg Tab 1.25 Mg PO WK 04/09/16 Reported friday only Jantoven (Warfarin Sodium) 2.5 Mg Tab 2.5 Mg PO 6XWK 04/09/16 Reported every day but friday Pravachol (Pravastatin Sodium) 20 Mg Tab 20 Mg PO QPM 04/09/16 Reported Digitek (Digoxin) 0.125 Mg Tab 0.125 Mg PO DAILY 04/09/16 Reported Hctz (Hydrochlorothiazide) 12.5 Mg Cap 12.5 Mg PO 2XWK 04/09/16 Reported Cozaar (Losartan Potassium) 100 Mg Tab 100 Mg PO DAILY 04/09/16 Reported Restasis Eye Drops (Cyclosporine) Soln 1 Drop OP BID 04/09/16 Reported Synthroid (Levothyroxine Sodium) 100 Mcg Tab 100 Mcg PO DAILY 04/09/16 Reported Tambocor (Flecainide Acetate) 50 Mg Tab 50 Mg PO QPM 04/09/16 Reported Tambocor (Flecainide Acetate) 50 Mg Tab 100 Mg PO QAM 04/09/16 Reported Current Inpatient Medications Medications (Trade) Dose Ordered Sig/Cynthia Route Start Time Stop Time Status Last Admin Dose Admin Ioversol (Optiray 320) 100 ml UD PRN IV 03/07/17 18:45 03/11/17 18:44 Acetaminophen (Tylenol Tab) 650 mg Q4H PRN PO 03/07/17 22:15 04/06/17 22:14 03/09/17 14:06 650 MG Ondansetron HCl (Zofran Inj) 4 mg Q6H PRN IV 03/07/17 22:15 04/06/17 22:14 Aztreonam 1000 mg/ Dextrose 110 ml @ 100 mls/hr Q8H IV 03/08/17 02:00 04/19/17 01:59 03/09/17 09:35 100 MLS/HR Cetirizine HCl (zyrTEC TAB) 10 mg DAILY PO 03/08/17 09:00 04/07/17 08:59 Future Hold Cyanocobalamin (Vitamin B-12 Tab) 100 mcg DAILY PO 03/08/17 09:00 04/07/17 08:59 03/09/17 09:33 100 MCG Digoxin (Lanoxin Tab) 0.125 mg DAILY@1600 PO 03/08/17 16:00 04/07/17 15:59 03/08/17 15:54 0.125 MG Flecainide Acetate (Tambocor Tab) 50 mg QPM PO 03/08/17 21:00 04/07/17 20:59 03/08/17 19:45 50 MG Flecainide Acetate (Tambocor Tab) 100 mg QAM PO 03/08/17 09:00 04/07/17 08:59 03/09/17 09:32 100 MG Fluticasone Propionate (Flonase Nasal [place]) 2 sprays DAILY PRN TAMERA 03/07/17 22:15 04/06/17 22:14 Levothyroxine Sodium (Synthroid Tab) 100 mcg DAILYBB PO 03/08/17 06:00 04/07/17 06:59 Future Hold 03/08/17 07:42 100 MCG Loratadine (Claritin Tab) 10 mg DAILY PO 03/08/17 09:00 04/07/17 08:59 03/08/17 07:36 10 MG Losartan Potassium (coZAAR TAB) 100 mg DAILY PO 03/08/17 09:00 04/07/17 08:59 03/09/17 09:33 100 MG Multivitamins/ Minerals (Multivitamin W/ Minerals Tab) 1 tab DAILY PO 03/08/17 09:00 04/07/17 08:59 03/09/17 09:32 1 TAB Pravastatin Sodium (Pravachol Tab) 20 mg QPM PO 03/08/17 21:00 04/07/17 20:59 03/08/17 19:45 20 MG Spironolactone (Aldactone Tab) 25 mg DAILY PO 03/08/17 09:00 04/07/17 08:59 03/09/17 09:32 25 MG Albuterol (Ventolin Hfa Inhaler) 2 puffs QID PRN INH 03/07/17 22:15 04/06/17 22:14 Miscellaneous Information (Order Awaiting Action) 1 ea QS N/A 03/08/17 00:00 04/07/17 00:00 Vancomycin HCl (Consult) 1 ea UD PRN N/A 03/07/17 23:45 04/06/17 23:44 Aztreonam (Consult) 1 ea UD PRN N/A 03/07/17 23:45 04/06/17 23:44 Senna (Senokot Tab) 25.8 mg HS PO 03/08/17 22:00 04/07/17 21:59 03/08/17 22:08 25.8 MG Vancomycin HCl 1000 mg/Sodium Chloride 270 ml @ 125 mls/hr DAILY@1800 IV 03/09/17 18:00 04/20/17 17:59 Thank you for receiving this patient in transfer. Please call if you have any questions. Phil Ann . Additional Copies To Devyn Garcia M.D.; Maia Benito,DO
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
[2017-03-09 14:59] VITALS: BP 146/91; PULSE 60; TEMP 36.7; O2SAT 96
[2017-03-09] MEDS: DIGOXIN 0.125 MG TAB PO SCH (16:45)
[2017-03-09] MEDS ORDERED: VANCOMYCIN INJ 1,000 MG in SODIUM CHLORIDE 0.9% 250ML 250 ML IV SCH (18:00)
[2017-03-10] MEDS ORDERED: VANCOMYCIN TROUGH ONE (17:30)
[2017-03-10] MEDS ORDERED: VANCOMYCIN TROUGH SCH (21:30)
[2017-03-14] MEDS ORDERED: WARFARIN SOD 2.5 MG TAB PO SCH (16:00)
[2017-03-20] MEDS ORDERED: ALCA0.25 OP (14:46)
[2017-03-20] MEDS ORDERED: METR0.7536 TOP (14:48)
[2017-03-21] MEDS ORDERED: APIX1TAB3 PO (08:04)
[2017-03-21] MEDS ORDERED: MISCCAP80 PO (08:07)
== END 2017-03-09 19:54 | disposition short-term general hospital (02) | DRG 307 ==
LOC: C.EDB 16:43 → C.2T 22:14 → ENRESERV 22:29
PROVIDERS: ADMIT Internal Medicine; ATTEND Hospitalist
DX: I08.0 Rheumatic disorders of both mitral and aortic valves (principal); T82.7XXA Infection and inflammatory reaction due to other cardiac and vascular devices, implants and grafts, initial encounter; Q21.1 Atrial septal defect; I48.0 Paroxysmal atrial fibrillation; Z79.01 Long term (current) use of anticoagulants; Z88.0 Allergy status to penicillin; N18.3 Chronic kidney disease, stage 3 (moderate); Z82.49 Family history of ischemic heart disease and other diseases of the circulatory system; I12.9 Hypertensive chronic kidney disease with stage 1 through stage 4 chronic kidney disease, or unspecified chronic kidney disease; E03.9 Hypothyroidism, unspecified; Y71.2 Prosthetic and other implants, materials and accessory cardiovascular devices associated with adverse incidents; Y92.009 Unspecified place in unspecified non-institutional (private) residence as the place of occurrence of the external cause

== ENCOUNTER → 2017-03-21 | Outpatient (CLI) | payer BC ==
[2017-03-21] VITALS (7 sets, daily range): BP systolic 110–189; BP diastolic 46–83; PULSE 59–65; TEMP 36.9; O2SAT 96–100; Ht 152.4 cm; Wt 53.0 kg
[~2017-03-21] VITALS: Ht 152.4 cm; Wt 53.0 kg
[~2017-03-21] MED LIST changes: +ALBU18002 INH; +ALCA0.25 OP; +APIX1TAB3 PO; +BENZOCAIN/TETRACA/BUTAM SPRAY 200 APPLN/20 GM SPRY ONE; +BIOTCAP2 PO; +CALC1CHW2 PO; +CANNULA ONE; +CETI10TA84 PO; +CLBPO15 TOP; +CLR10 PO; +CYAN100T PO; +FLUT0.15 NAE; +MELA10TA2 PO; +MEPERIDINE HCL 50 MG/ML CARP ONE; +METR0.7536 TOP; +MIDAZOLAM HCL 1 MG/ML 2ML VIAL ONE; +MISCCAP80 PO; +MULT-610 PO; -WARF2.5T8 PO
--- NOTE | 2017-03-21 08:58 | History & Physical Bridge Note ---
H&P Re-Evaluation Bridge Note: I have examined the patient, reviewed the History & Physical and in the interval since the performance of the History & Physical I have noted the following changes of clinical significance: No changes noted
--- NOTE | 2017-03-21 08:59 | Procedure Note ---
Pre-Mod Sedation Assessment General Date of Moderate Sedation: Mar 21, 2017. Vital Signs: Vital Signs Past 12 Hours Date Time Temp Pulse Resp B/P (MAP) Pulse Ox O2 Delivery O2 Flow Rate FiO2 03/21/17 08:53 60 19 179/73 (108) 100 Nasal Cannula 2 03/21/17 07:50 36.9 59 14 133/50 97 Room Air Review Cardiovascular: regular rate, rhythm, no edema, no gallop, no JVD, no murmur Pre-Sedation Airway Assessment Oral Cavity: WNL Able to Visualize Vocal Cords: Yes Short Thick Neck: No Hx of Sleep Apnea: No Smoking Status: Never Smoker Mallampati Classification: Class II ASA Classification: Class II Procedure Planning Contraindications-for Mod Sed: None Yes Notes The planned sedation has been discussed with the patient and consent obtained. I have identified the patient, determined the appropriateness of sedation and have assessed the patient immediately prior to the procedure. All medicine(s) and interventions are by my order.
--- NOTE | 2017-03-21 09:03 | Discharge Instructions ---
Discharge Instructions Procedure Procedure Date: Mar 21, 2017. Reason for Visit: Afib,Vegetation Of Rv Lead, No Anesthesia. Discharge Discharge Date: Mar 21, 2017. Discharge Diagnosis: Pacemaker lead thrombosis Last Recorded Wt (Kilograms): 53 Anesthesia Post Anesthesia Instructions: If you have had General Anesthesia or IV Sedation: * Do not drive today. * Resume driving when surgeon permits. * Do not make important decisions or sign legal documents today. * Call surgeon for: 1. Temperature elevations greater than 101 degrees F. 2. Uncontrollable pain. 3. Excessive bleeding. 4. Persistent nausea and vomiting. 5. Medication intolerance (nausea, vomiting or rash). * For nausea and vomiting use only clear liquids such as: tea, soda, bouillon until nausea subsides, then gradually increase diet as tolerated. * If you have any concerns or questions, call your surgeon's office. If physician is unavailable and it is an emergency, call 911 or go to the nearest emergency room. Instructions Activity Recommendations: limitations as noted below Recommended Home Diet: resume previous diet Allergies: Coded Allergies: Cephalosporins (Verified Allergy, Intermediate, HIVES, 03/07/17) Penicillins (Verified Allergy, Intermediate, HIVES, 03/07/17) Cat Dander (Unverified Allergy, Mild, SHORTNESS OF BREATH, 03/21/17) as per patient Dust (Unverified Allergy, Mild, SHORTNESS OF BREATH, 03/21/17) Grass (Unverified Allergy, Mild, SHORTNESS OF BREATH, 03/21/17) Molds and Smuts (Unverified Allergy, Mild, SHORTNESS OF BREATH, 03/21/17) Lisinopril (Verified Allergy, Unknown, UNKNOWN, 03/07/17) Provider Instructions ACTIVITY RECOMMENDATIONS: Resume activities as tolerated with no limitations unless specified. __ No lifting over __ pounds for 24 hours. __ Do not engage in vigorous exercise, sexual activity, or sports for 24 hours. __ Do not drive or operate any motorized equipment for 24 hours. __ You may return to work/school tomorrow. __ Nothing to eat or drink until gag reflex returns. __ No HOT or WARM liquids for __ hours. __ Avoid "scratchy" foods such as potato chips or pretzels for 24 hours following procedure. SPECIAL CARE: If you experience coughing up or vomiting of blood, contact Dr Garcia Follow Up Follow-up with: Dr Garcia as scheduled [facility] [place] Recommendations: Call your doctor if: * Temperature above 101 degrees * Pain not relieved by pain medicine ordered * There is increased drainage or redness from any incision * You have any unanswered questions or concerns. Your Doctors Instructions noted above were prepared by provider Devyn Garcia. Patient Signature Section: Patient Instructions Signature Page Lillian Horton Patient (or Guardian) Signature/Date: I have read and understand the instructions given to me by my caregivers. Caregiver/RN/Doctor Signature/Date: The above-named patient and/or guardian has received patient instructions on this date. + Original Patient Signature Page (only) stays with chart. Please make copy for patient.
--- NOTE | 2017-03-23 12:15 | TEE ---
*NOTICE TO RECEIVING REPUBLICAN AGENCY This information is strictly Confidential and protected under [place] law. [place] law prohibits you from making any further disclosure of this information unless further disclosure is expressly permitted by the written consent of the person to whom it pertains or is authorized by law. A general authorization for the release of medical or other information is not sufficient for this purpose. Hospital accepts no responsibility if the information is made available to any other person, INCLUDING THE PATIENT. Interpretation Summary * Name: BARRETT AUGUSTIN Study Date: 03/21/2017 08:08 AM BP: 133/50 mmHg * Patient Location: [facility] HR: 72 * : 1940 (M/d/yyyy) Gender: Female Height: 60 in * Age: 76 yrs Ethnicity: CA Weight: 116 lb * Ordering Physician: Devyn Garcia * Referring Physician: Devyn Garcia * Performed By: Fanny Cano RDCS * * Reason For Study: Evaluate vegetation on pacer wire * BSA: 1.5 m2 * -- Conclusions -- * The left ventricle is normal in size. * There is moderate concentric left ventricular hypertrophy. * The left ventricular wall motion is normal. * Ejection Fraction = 60-65%. * The right ventricular pacer lead has heavy fibrotic thickening along its length, thrombus not excluded. * The aortic vavle leaflets are mildly thickened. There are thin mobile strands attached to the aortic valve leaflets c/w excretions, no overt vegetation observed. * Mild atherosclerotic plaque(s) in the descending aorta. Procedure Details * The transesophageal portion of this study was personally supervised by the undersigned interpreting physician. * The study was performed in Cardiopulmonary Department. * Time out was conducted by the physician, nurse, and tire service technician with positive identification of patient and procedure. * Informed consent for Transesophageal Echocardiogram was obtained prior to the procedure. * An intravenous line was placed. A topical anesthetic agent was used for oropharangeal anesthesia. A bite block was inserted. * The patient's vital signs, including blood pressure, heart rate, pulse oximetry and cardiac rhythm were monitored throughout the procedure . * The posterior oropharynx was anesthetized using a topical anesthetic spray. A bite guard was inserted. * A multifrequency, multiplane transesopheageal echocardiographic endoscope was inserted and manipulated in the standard fashion to achieve multiplane views. * The transesophageal probe was passed without difficulty. * The usual views were obtained; basal, mid-esophageal, transgastric and aortic views. * The patient tolerated the procedure well without evidence of orophangeal or esophageal trauma. * ROLANDO Probe #3 utilized for this procedure. Start time 08:36 Probe inserted 08:40 End time 08:51 * Meperidine 12.5 mg administered for sedation. * Midazolam 2 mg administered for sedation. * A 2D transesophageal echocardiogram with color flow Doppler was performed. Left Ventricle * The left ventricle is normal in size. * There is moderate concentric left ventricular hypertrophy. * Ejection Fraction = 60-65%. * The left ventricular wall motion is normal. Right Ventricle * There is a pacemaker lead in the right ventricle. * The right ventricular pacer lead has heavy fibrotic thickening along its length, thrombus not excluded. * The right ventricular systolic function is normal. Atria * The left atrium is moderately dilated. * Right atrial size is normal. Mitral Valve * The mitral valve anatomy is normal. * There is no mitral valve stenosis. * There is trace mitral regurgitation. Tricuspid Valve * The tricuspid valve anatomy is normal. * There is trace tricuspid regurgitation. Aortic Valve * The aortic valve is trileaflet. * The aortic vavle leaflets are mildly thickened. There are thin mobile strands attached to the aortic valve leaflets c/w excretions, no overt vegetation observed. * No hemodynamically significant valvular aortic stenosis. * No aortic regurgitation is present. Pulmonic Valve * The pulmonic valve is not well seen, but is grossly normal. Great Vessels * Mild atherosclerotic plaque(s) in the descending aorta. * Mild atherosclerotic plaque(s) in the aortic arch. Right Ventricle * The right ventricular wall motion is normal.
== END | disposition home or self-care (01) ==
LOC: C.CPL 07:00
PROVIDERS: ATTEND Internal Medicine Cardiovascular Disease
DX: I48.91 Unspecified atrial fibrillation (principal); I33.0 Acute and subacute infective endocarditis

== ENCOUNTER → 2017-11-04 | Outpatient (CLI) | payer BC ==
[~2017-11-04] MED LIST changes: -BENZOCAIN/TETRACA/BUTAM SPRAY 200 APPLN/20 GM SPRY ONE; -CANNULA ONE; -MEPERIDINE HCL 50 MG/ML CARP ONE; -MIDAZOLAM HCL 1 MG/ML 2ML VIAL ONE
== END | disposition home or self-care (01) ==
LOC: C.PATHSPEC 17:20
PROVIDERS: ATTEND Plastic Surgery
DX: L85.8 Other specified epidermal thickening (principal)

== ENCOUNTER 2019-03-22 17:52 | Inpatient (IN) ==
--- OUTSIDE RECORDS SUMMARY | 2019-03-22 17:55 | External Medical Summary | Continuity of Care Document ---
:1940 Author Name Reddy iPsano, Provider Address Unavailable Unavailable , Care Team Providers Name Role Phone NonMNPG Norris, Provider Unavailable [email or web address] marimar May M.D., Chris Unavailable [email or web address] Francy Sparks PA-C Unavailable [email or web address] Matt Pisano, Maureen Unavailable [email or web address] Prabha HAIDER, Zofia Unavailable [email or web address] MAYA MIX Unavailable Unavailable Unavailable Unavailable Unavailable Problems 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) Neoplasm of uncertain behavior of skin (238.2) (D48.5) Seborrheic keratosis, inflamed (702.11) (L82.0) Pacemaker (V45.01) (Z95.0) Rosacea (695.3) (L71.9) Benign skin papilloma (216.9) (D23.9) Meningioma (225.2) (D32.9) Contact dermatitis (692.9) (L25.9) Allergic dermatitis (692.9) (L23.9) Seborrheic keratosis (702.19) (L82.1) Actinic keratosis (702.0) (L57.0) Allergies and Adverse Reactions Betadine SOLN (Allergy) Cephalosporins (Allergy) Latex Exam Gloves MISC (Allergy) Lisinopril TABS (Allergy) Neosporin OINT (Allergy) Penicillins (Allergy) Medications Hydrocortisone 2.5 % External Cream; APPLY 2-3 TIMES D AILY TO AFFECTED AREA(S). MELIZA Armando Start: 06-Aug-2017 Quantity: 1 30 GM Tube Refills: 0 Centrum Oral Tablet Refills: 0 Singulair 10 MG Oral Tablet Refills: 0 Eliquis 5 MG Oral Tablet Refills: 0 Losartan Potassium 100 MG Oral Tablet; TAKE 1 TABLET DAILY. Quantity: 14 Refills: 1 Calcium+D3 Gradual Release 600-40-500 MG -MG-UNIT Oral Tablet Extended Release 24 Hour Refills: 0 Levoxyl 100 MCG Oral Tablet; TAKE 1 TABLET DAILY. Refills: 0 Flecainide Acetate 50 MG Oral Tablet; TAKE 1 TABLET TWICE DA AUNDREA. Refills: 0 Digitek 125 MCG Oral Tablet; TAKE 1 TABLET DAILY. Refills: 0 Vitamin B-12 1000 MCG Oral Tablet; TAKE 1 TABLET DAILY DI RECTED. 100 Tablet Bottle Quantity: 1 Refills: 1 Melatonin 10 MG Oral Tablet; TAKE 2 TABLET Bedtime Refills: 0 traZODone HCl - 50 MG Oral Tablet; TAKE 1 TABLET AT BEDTIME. Quantity: 30 Refills: 0 Senna-S 8.6-50 MG Oral Tablet; TAKE 3 TABLET Bedtime Refills: 0 Lastacaft 0.25 % Ophthalmic Solution; prn 3 ML Bottle Refills: 0 ZyrTEC Allergy TABS; prn Refills: 0 Mupirocin 2 % External Ointment; Apply t o treated and biopsied areas 2 to 3 times a day. Norris Gutierrez Start: 05-Aug-2017 Quantity: 1 15 GM Tube Refills: 1 Spironolactone 25 MG Oral Tablet; take 1 tablet by mouth onc e daily Quantity: 90 Refills: 3 Biotin 5000 MCG Oral Tablet Start: Refills: 0 metroNIDAZOLE 0.75 % External Cream; apply to affected area twice a day Norris May Start: 13-Jul-2015 Quantity: 45 Refills: 2 Pravastatin Sodium 20 MG Oral Tablet; TAKE 1 TABLET BY MOUTH EVERY DAY Quantity: 30 Refills: 5 Doxycycline Monohydrate 100 MG Oral Tablet; TAKE 1 TAB LET TWICE DAILY. MELIZA Sparks Start: 06-Nov-2017 Quantity: 14 Refills: 0 Procedures History of Tonsillectomy Status: Complet ed History of Hysterectomy Status: Complete d Immunizations Immunizations not documented Family History Father Family history of Acute Myocardial Infarction (V17.3) Status : Active Mother Family history of Heart Disease (V17.49) Status: Active Sister Family history of Cancer Status: Active Social History - Smoking Status Never smoker Plan of Treatment Planned Observations Planned Goals not documented Results No Known Results Results not documented Encounters Appointment; Francy Sparks PA-C 25-Dec-2017 10:15 Encounter Diagnosis: Problem not documented Appointment; Francy Sparks PA-C 02-Dec-2017 11:00 Encounter Diagnosis: Problem not documented Appointment; Francy Sparks PA-C 18-Nov-2017 9:45 Encounter Diagnosis: Problem not documented Appointment; Francy Sparks PA-C 13-Nov-2017 11:30 Encounter Diagnosis: Problem not documented Appointment; Francy Sparks PA-C 06-Nov-2017 15:15 Encounter Diagnosis: Problem not documented Appointment; Irena Vasquez M.D. 04-Nov-2017 10:30 Encounter Diagnosis: Problem not documented Appointment; Maureen Gutierrez M.D. 30-Oct-2017 14:30 Encounter Diagnosis: Problem not documented Appointment; Maureen Gutierrez M.D. 31-Jul-2017 13:00 Encounter Diagnosis: Problem not documented Appointment; Chris May M.D. 08-Jul-2017 13:00 Encounter Diagnosis: Problem not documented
[2019-03-22 20:11] LABS: Basophils # (auto) 0.05 K/uL (0-0.2); Basophils % (auto) 0.5 %; Eosinophils # (auto) 0.31 K/uL (0-0.5); Eosinophils % (auto) 2.9 %; Hematocrit (blood only) 36.7 % (37-47); Hemoglobin 12.8 g/dL (12.0-16.0); Immature Granulocytes # (auto) 0.04 K/uL (0.00-0.02); Immature Granulocytes % (auto) 0.4 %; Lymphocytes # (auto) 1.47 K/uL (1.2-3.4); Lymphocytes % (auto) 13.9 %; Mean Corpuscular Hemoglobin 30.5 pg (25-34); Mean Corpuscular Hgb Conc 34.9 g/dL (32-36); Mean Corpuscular Volume 87.4 fL (80-100); Mean Platelet Volume 10.9 fL (7.4-10.4); Monocytes # (auto) 0.65 K/uL (0.11-0.59); Monocytes % (auto) 6.1 %; Neutrophils # (auto) 8.09 K/uL (1.4-6.5); Neutrophils % (auto) 76.2 %; Platelet Count 230 K/uL (130-400); RDW Coefficient of Variation 12.6 % (11.5-14.5); RDW Standard Deviation 40.2 fL (36.4-46.3); White Blood Count 10.61 K/uL (4.8-10.8)
[2019-03-22 20:27] LABS: BUN Creatinine Ratio 18.7 (10-20); Est GFR (Non-African American) 17.2; Potassium 4.6 mmol/L (3.5-5.1)
[2019-03-22] MEDS ORDERED: SODIUM CHLORIDE 0.9% 1000ML 1,000 ML IV SCH (20:45)
[2019-03-22 20:58] LABS: Appearance Urine Clear (Clear); Bacteria Urine Automated Negative (Negative); Bilirubin Urine Negative (Negative); Blood Urine Negative (Negative); Color Urine Yellow; Glucose Urine UA Negative (Negative); Ketones Urine Negative (Negative); Leukocyte Esterase Urine 1+ (Negative); Nitrite Urine Negative (Negative); Protein Urine Negative (Negative); RBC Urine Automated 0-4 /hpf (0-4); Specific Gravity Urine 1.014 (1.000-1.030); Urobilinogen Urine Negative (Negative); pH Urine 5.5 (4.5-7.5)
--- NOTE | 2019-03-22 21:43 | Emergency Department Note ---
Entered by Ailin Irwin acting as a scribe for Osiel Delcid History of Present Illness General Chief complaint: Abnormal Labs/Diagnostic Testing Stated complaint: RENAL EVALUATION, REF BY DR. BENITO. Time Seen by Provider: 03/22/19 18:06 Source: patient History of Present Illness Onset (ago): hour(s) (today) Location: head (general) Pain Consistency: + other (episode ) Quality: + other (abnormal labs) Associated symptoms: + loss of appetite, + nausea/vomiting (positive nausea; negative vomiting ) and + other (positive intermittent abdominal pain; positive lightheaded; positive tired; negative diarrhea; negative blood in stools; negative blood in urine); no chest pain and no fever/chills The patient is a 78 year old female who presents to the Emergency Room with complaints of an episode abnormal labs that occurred today. The patient states that she was at her spinning frame tender's office and had blood work done, and was told to come to the ED for renal failure. She reports current nausea, and intermittent abdominal pain exacerbated by eating. The patient states that she was on a cruise one week ago for 3 weeks and while on this cruise she felt lightheaded, nauseous, tired, and had no appetite. She states that prior to vacation her blood pressure was fluctuating and was told by her candy feeder to adjust her Losartan between half of a dose and a full dose as needed. The patient states that when she returned she saw her PCP who took her off of her sleeping pill. The patient denies chest pain, vomiting, diarrhea, blood in her stools, blood in her urine, and fevers. The patient denies ever being on dialysis. Home Medications Home Medications Medication Instructions Recorded Confirmed Type albuterol sulfate [ProAir HFA] 2 puff INHALATION QID PRN 07/30/18 03/22/19 History alcaftadine [Lastacaft] 1 drp OPB DAILY PRN 07/30/18 03/22/19 History apixaban [Eliquis] 2.5 mg PO BID 07/30/18 03/22/19 History biotin 5,000 mcg PO Q2D 07/30/18 03/22/19 History calcium carbonate-vitamin D3 2 tab PO QAM 07/30/18 03/22/19 History [Calcium 600 with Vitamin D3] cetirizine 5 mg PO DAILY PRN 07/30/18 03/22/19 History cyanocobalamin (vitamin B-12) 100 mcg PO QPM 07/30/18 03/22/19 History [Vitamin B-12] digoxin [Digitek] 125 mcg PO 3XWK 07/30/18 03/22/19 History flecainide 100 mg PO BID 07/30/18 03/22/19 History hydrocortisone 1 applic TOPICAL TID PRN 07/30/18 03/22/19 History levothyroxine 100 mcg PO QAM 07/30/18 03/22/19 History losartan 50 mg PO QAM 07/30/18 03/22/19 History montelukast 10 mg PO QPM PRN 07/30/18 03/22/19 History jdfcdssgcnid-emdg-eafjn acid 1 tab PO QPM 07/30/18 03/22/19 History [Centrum] pravastatin 20 mg PO HS 07/30/18 03/22/19 History sennosides [senna] 2 - 3 tab PO HS PRN 07/30/18 03/22/19 History spironolactone 25 mg PO QAM 07/30/18 03/22/19 History trazodone 50 mg PO HS 07/30/18 03/22/19 History azelastine 1 spray INTRANASAL BID PRN 03/22/19 03/22/19 History cyclosporine [Restasis] 1 drp OPB Q12 03/22/19 03/22/19 History metronidazole [MetroCream] 1 applic TOPICAL BID PRN 03/22/19 03/22/19 History omeprazole 20 mg PO QAM 03/22/19 03/22/19 History Allergies Allergy/AdvReac Type Severity Reaction Status Date / Time latex Allergy Severe Rash Verified 03/22/19 19:32 Cephalosporins Allergy Intermediate HIVES Verified 03/22/19 19:32 Penicillins Allergy Intermediate HIVES Verified 03/22/19 19:32 cat dander Allergy Mild SHORTNESS Unverified 03/22/19 19:32 OF BREATH grass pollen-perennial rye, Allergy Mild SHORTNESS Unverified 03/22/19 19:32 standar OF BREATH mold Allergy Mild SHORTNESS Unverified 03/22/19 19:32 OF BREATH lisinopril Allergy Unknown UNKNOWN Verified 03/22/19 19:32 Dust Allergy Mild SHORTNESS Uncoded 03/22/19 19:32 OF BREATH Past Med/Surg History Medical History Atrial fibrillation (Chronic) Tachy-shantel syndrome (Chronic) Endocarditis Fever and chills Surgical History S/P placement of cardiac pacemaker (Chronic) Family History Other No pertinent family history in first degree relatives Social History Feels Safe at Home: Yes Smoking Status: Never smoker Review of Systems See HPI for pertinent positives & negatives. and A total of 10 systems reviewed and were otherwise negative Physical Exam Vital Signs Vital Signs - 24 hr 03/22/19 17:59 03/22/19 19:47 03/22/19 20:34 Temperature 36.7 C Temperature Source Oral Sepsis Recent Fever Within 48 Hours No Sepsis New/Unexplained Change in Mental Status No Sepsis Action Taken by Nursing No Action Required Pulse Rate 72 Pulse Rate [Finger] 66 66 Pulse Rhythm Regular Pulse Strength Normal Respiratory Rate 20 14 18 Respiratory Effort / Characteristics Non-Labored Spontaneous Non-Labored Respiratory Depth Normal Normal Respiratory Pattern Regular Regular Blood Pressure 116/71 Blood Pressure [Right Arm] 137/56 L 133/60 Blood Pressure Mean 86 Blood Pressure Mean [Right Arm] 83 84 Blood Pressure Position Sitting Blood Pressure Position [Right Arm] Lying Pulse Oximetry 99 98 99 Oxygen Delivery Method Room Air Room Air Room Air GENERAL: He is oriented to person, place, and time. He appears well-developed and well-nourished. He does not appear distressed. HENT: Exam performed. - Head: Normocephalic and atraumatic. - Right Ear: External ear normal. No mastoid tenderness. - Left Ear: External ear normal. No mastoid tenderness. - Mouth/Throat: The oropharynx is clear and moist. No trismus in the jaw. No dental abscesses or uvula swelling. No oropharyngeal exudate or tonsillar abscesses. EYES: Conjunctivae and EOM are normal. Pupils are equal, round, and reactive to light. Right eye exhibits no discharge. Left eye exhibits no discharge. No scleral icterus. NECK: Normal range of motion. Neck supple. No JVD present. No spinous process tenderness present. No carotid bruit present. No rigidity. No tracheal deviation and normal range of motion present. No Brudzinski's sign and no Kernig's sign noted. CV: Normal rate, regular rhythm, normal heart sounds and intact distal pulses. There is no peripheral edema. Palpable radial pulses bue. PULM/CHEST: Effort normal and breath sounds normal. No respiratory distress. No stridor. He has no wheezes. He has no rales. - Chest Wall: He exhibits no tenderness. ABD: The abdomen is soft. Bowel sounds are normal. He has no distension. No mass is present. There is no tenderness. There is no rebound, no guarding, no Lim's sign and no tenderness at McBurney's point. Rovsig negative. MUSC/SKEL: Normal range of motion. There is no peripheral edema, tenderness or deformity. LYMPH: No cervical adenopathy. NEURO: He is alert and oriented to person, place, and time. He has normal strength. No cranial nerve deficit or sensory deficit. Coordination and gait normal. GCS eye subscore is 4. GCS verbal subscore is 5. GCS motor subscore is 6. Cerebellar tests wnl. SKIN: Skin is warm and dry. He is not diaphoretic. PSYCH: He has a normal mood and affect. Behavior is normal. Judgment and thought content normal. Course 1812: Past medical records reviewed. The patient was evaluated in room A12B. A complete history and physical exam was performed. 1825: Primitivo the dependency case manager was able to obtain the lab work done today which showed that the patient had a creatinine of 2.6. It shows that last week she had a creatinine of 4 and a potassium of 5.6. The patient's creatinine in November was 1.2 and was 1.6 in September. 2027: Total signs stable. Labs showed creatinine of 2.57. Patient will be admitted for acute kidney injury. I discussed the case with [facility] who accepts the patient for further evaluation. Administered Medications Sodium Chloride (Nss 1000ml) 1,000 mls @ 125 mls/hr IV .Q8H FREYA Stop: 04/21/19 20:44 Last Admin: 03/22/19 20:43 Dose: 125 mls/hr Documented by: [id number] Medical Decision Making Medical Records Attestation: I reviewed the patient's medical records. Home Medications Current Medication List: was personally reviewed by me Laboratory Data Attestation: I reviewed the patient's lab results. Result diagrams: 03/22/19 20:00 03/22/19 20:00 Lab Results 03/22/19 03/22/19 03/22/19 Range/Units 20:00 20:00 20:14 WBC 10.61 (4.8-10.8) K/uL RBC 4.20 (4.2-5.4) M/uL Hgb 12.8 (12.0-16.0) g/dL Hct 36.7 L (37-47) % MCV 87.4 (80-100) fL MCH 30.5 (25-34) pg MCHC 34.9 (32-36) g/dL RDW Std Deviation 40.2 (36.4-46.3) fL RDW Coeff of Vinh 12.6 (11.5-14.5) % Plt Count 230 (130-400) K/uL MPV 10.9 H (7.4-10.4) fL Immature Gran % (Auto) 0.4 % Neut % (Auto) 76.2 % Lymph % (Auto) 13.9 % [place] % (Auto) 6.1 % Eos % (Auto) 2.9 % Baso % (Auto) 0.5 % Immature Gran # (Auto) 0.04 H (0.00-0.02) K/uL Neut # (Auto) 8.09 H (1.4-6.5) K/uL Lymph # (Auto) 1.47 (1.2-3.4) K/uL [place] # (Auto) 0.65 H (0.11-0.59) K/uL Eos # (Auto) 0.31 (0-0.5) K/uL Baso # (Auto) 0.05 (0-0.2) K/uL Sodium 141 (136-145) mmol/L Potassium 4.6 (3.5-5.1) mmol/L Chloride 113 H (98-107) mmol/L Carbon Dioxide 19 L (21-32) mmol/L Anion Gap 9.0 (3-11) BUN 48 H (7-18) mg/dl Creatinine 2.57 H (0.6-1.2) mg/dl Est Cr Clr Drug Dosing 13.0 ml/min Est GFR ( Amer) 20.0 Est GFR (Non-Af Amer) 17.2 BUN/Creatinine Ratio 18.7 (10-20) Glucose 102 H (70-99) mg/dl Calcium 9.0 (8.5-10.1) mg/dl Urine Color Yellow Urine Appearance Clear (Clear) Urine pH 5.5 (4.5-7.5) Ur Specific [place] 1.014 (1.000-1.030) Urine Protein Negative (Negative) Urine Glucose (UA) Negative (Negative) Urine Ketones Negative (Negative) Urine Blood Negative (Negative) Urine Nitrite Negative (Negative) Urine Bilirubin Negative (Negative) Urine Urobilinogen Negative (Negative) Ur Leukocyte Esterase 1+ H (Negative) Urine WBC (Auto) 10-30 H (0-5) /hpf Urine RBC (Auto) 0-4 (0-4) /hpf U Hyaline Cast (Auto) 1-5 (0-5) /lpf U Epithel Cells (Auto) 10-20 H (0-5) /lpf Urine Bacteria (Auto) Negative (Negative) ECG Data Attestation: I personally reviewed and interpreted this ECG as follows: Indication: other (arrhythmia ) Rate (beats per minute): 66 Rhythm: sinus rhythm Findings: + other (OH interval 226, QRS and QTC within normal limits) and + 1st degree AV block; no ST depression and no ST elevation Blood Pressure Blood Pressure Findings: Normal blood pressure MDM Narrative 1812: Past medical records reviewed. The patient was evaluated in room A12B. A complete history and physical exam was performed. 1825: Primitivo the dependency case manager was able to obtain the lab work done today which showed that the patient had a creatinine of 2.6. It shows that last week she had a creatinine of 4 and a potassium of 5.6. The patient's creatinine in November was 1.2 and was 1.6 in September. 2027: Total signs stable. Labs showed creatinine of 2.57. Patient will be admitted for acute kidney injury. I discussed the case with Dr. Ramos [facility] Hospitalist who accepts the patient for further evaluation. Impression & Plan Acute kidney injury Discharge Plan Visit Data Chief Complaint: Abnormal Labs/Diagnostic Testing Stated Complaint: RENAL EVALUATION, REF BY DR. BENITO. ED Provider: Osiel Delcid Discharge Problem: Acute kidney injury Patient Disposition: Being Evaluated by Hospitalist Forms Stand Alone Forms: [facility] Prescriptions Prescriptions: No Action sennosides [senna] 8.6 mg Tablet 2 - 3 tab PO HS PRN (Reason: Constipation) RF: 0 cyanocobalamin (vitamin B-12) [Vitamin B-12] 100 mcg Tablet 100 mcg PO QPM RF: 0 trazodone 50 mg tablet 50 mg PO HS RF: 0 cetirizine 5 mg Tablet 5 mg PO DAILY PRN (Reason: ALLERGIES) RF: 0 spironolactone 25 mg tablet 25 mg PO QAM RF: 0 levothyroxine 100 mcg tablet 100 mcg PO QAM RF: 0 flecainide 50 mg tablet 100 mg PO BID RF: 0 hydrocortisone 2.5 % cream 1 applic topical TID PRN (Reason: AFFECTED AREAS) RF: 0 montelukast 10 mg tablet 10 mg PO QPM PRN (Reason: ALLERGIES) RF: 0 pravastatin 20 mg tablet 20 mg PO HS RF: 0 digoxin [Digitek] 125 mcg tablet 125 mcg PO 3XWK RF: 0 albuterol sulfate [ProAir HFA] 90 mcg/actuation HFA aerosol inhaler 2 puff Inhalation QID PRN (Reason: Shortness Of Breath) RF: 0 losartan 100 mg tablet 50 mg PO QAM RF: 0 biotin 2,500 mcg Capsule 5,000 mcg PO Q2D RF: 0 calcium carbonate-vitamin D3 [Calcium 600 with Vitamin D3] 600 mg(1,500mg) - 400 unit Capsule 2 tab PO QAM RF: 0 Centrum 18-400 mg-mcg Tablet 1 tab PO QPM RF: 0 Lastacaft 0.25 % drops 1 drp OPB DAILY PRN (Reason: PRN) RF: 0 Eliquis 2.5 mg tablet 2.5 mg PO BID RF: 0 metronidazole [MetroCream] 0.75 % cream 1 applic topical BID PRN (Reason: ROSACEA) RF: 0 omeprazole 20 mg capsule,delayed release(DR/EC) 20 mg PO QAM RF: 0 azelastine 137 mcg (0.1 %) aerosol,spray 1 spray intranasal BID PRN (Reason: Nasal Congestion) RF: 0 Restasis 0.05 % dropperette 1 drp OPB Q12 RF: 0 Referrals Referrals: Maia Benito, [Primary Care Provider] - The scribe's documentation has been prepared under my direction and personally reviewed by me in its entirety. I confirm that the note above accurately reflects all work, treatment, procedures, and medical decision making performed by me.
--- NOTE | 2019-03-22 22:07 | History & Physical Report ---
Date of Service March 22, 2019 Assessment & Plan (1) ROSAURA (acute kidney injury): (2) CKD (chronic kidney disease), stage III: -Admit to [facility] with telemetry -Patient presenting by referral of PCP for evaluation of abnormal renal function, abdominal pain, lightheadedness -History of CKD, with baseline creatinine being in the low 1's -Creatinine 4.0-03/15/2019, 2.5 today -Etiology unclear at this point however seems to be prerenal in nature secondary to poor p.o. intake in combination with ARB and spironolactone use -Given reports of abdominal pain, will check CT ABD/pelvis -Hold ARB and spironolactone -IVF -Follow renal functions closely, low threshold for nephrology consult (3) Atrial fibrillation: (4) Tachy-shantel syndrome: (5) S/P placement of cardiac pacemaker: -Currently in NSR -Due to ROSAURA, will renally adjust flecainide to 50 mg twice daily -Continue Eliquis 2.5 mg twice daily -Check digoxin level before resuming digoxin (6) Hypertension: -BP currently controlled -Holding losartan as above -Check orthostatic BPs (7) Diastolic dysfunction: -Echo 02/2017-EF 55 to 59%, grade 1 diastolic dysfunction -Holding losartan as above -Appears to be on the dry side with ROSAURA (8) Hypothyroidism: -Continue levothyroxine (9) DVT prophylaxis: -Anticoagulated on Eliquis History of Present Illness Chief Complaint: Referred by for abnormal labs, abdominal pain, lightheadedness Primary Care Provider: Maia Benito, DO 70-year-old female who was referred to the ED by her outpatient doctor for evaluation of abnormal renal function, abdominal pain, lightheadedness. Patient reports that about 1 month ago, she noted her blood pressure to be very low and she was feeling lightheaded and dizzy. She contacted her general utility worker who recommended for her to reduce her losartan from 100 mg daily to 50 mg daily. Patient reports that shortly after, she was in [place] for 3 weeks on a cruise. She reports that while her blood pressure did improve with this medication adjustment, her symptoms did not. She reports that she has continued to feel lightheaded and dizzy. She has not had any syncopal events however she reports she has fallen to the ground a few times. When she returned home 1 week ago, she was seen again by an outpatient provider who recommended that she stop taking the gabapentin that was recently prescribed to her for insomnia. She has done this and again has not had any improvement in her symptoms. Patient reports she has had associated abdominal pain and nausea. She has had a very poor appetite and has lost about 5 pounds in the past 1 month. She reports that she has continued to drink about 8 glasses of water per day however her food intake has been decreased. Abdominal pain is located in epigastric region and seems to be worse after eating. No vomiting or diarrhea. No chest pain, palpitations, shortness of breath. She denies fevers and chills. No urinary symptoms. Labs today as an outpatient showed a creatinine 2.6 (prior baseline runs in the low 1's). In the ED, creatinine is 2.5, other labs are unremarkable. She was given IVF. Allergies Allergy/AdvReac Type Severity Reaction Status Date / Time latex Allergy Severe Rash Verified 03/22/19 19:32 Cephalosporins Allergy Intermediate HIVES Verified 03/22/19 19:32 Penicillins Allergy Intermediate HIVES Verified 03/22/19 19:32 cat dander Allergy Mild SHORTNESS Unverified 03/22/19 19:32 OF BREATH grass pollen-perennial rye, Allergy Mild SHORTNESS Unverified 03/22/19 19:32 standar OF BREATH mold Allergy Mild SHORTNESS Unverified 03/22/19 19:32 OF BREATH lisinopril Allergy Unknown UNKNOWN Verified 03/22/19 19:32 Dust Allergy Mild SHORTNESS Uncoded 03/22/19 19:32 OF BREATH Home Medications Home Medications Medication Instructions Recorded Confirmed Type albuterol sulfate [ProAir HFA] 2 puff INHALATION QID PRN 07/30/18 03/22/19 History alcaftadine [Lastacaft] 1 drp OPB DAILY PRN 07/30/18 03/22/19 History apixaban [Eliquis] 2.5 mg PO BID 07/30/18 03/22/19 History biotin 5,000 mcg PO Q2D 07/30/18 03/22/19 History cetirizine 5 mg PO DAILY PRN 07/30/18 03/22/19 History cyanocobalamin (vitamin B-12) 100 mcg PO QPM 07/30/18 03/22/19 History [Vitamin B-12] digoxin [Digitek] 125 mcg PO MOWEFR 07/30/18 03/22/19 History flecainide 100 mg PO BID 07/30/18 03/22/19 History hydrocortisone 1 applic TOPICAL TID PRN 07/30/18 03/22/19 History levothyroxine 100 mcg PO QAM 07/30/18 03/22/19 History losartan 50 mg PO QAM 07/30/18 03/22/19 History montelukast 10 mg PO QPM PRN 07/30/18 03/22/19 History zvikhrjjtvkl-anzn-shovj acid 1 tab PO QPM 07/30/18 03/22/19 History [Centrum] pravastatin 20 mg PO HS 07/30/18 03/22/19 History sennosides [senna] 2 - 3 tab PO HS PRN 07/30/18 03/22/19 History spironolactone 25 mg PO QAM 07/30/18 03/22/19 History trazodone 50 mg PO HS 07/30/18 03/22/19 History azelastine 1 spray INTRANASAL BID PRN 03/22/19 03/22/19 History calcium carbonate-vitamin D3 2 tab PO DAILY 03/22/19 03/22/19 History [Caltrate 600 plus D] cyclosporine [Restasis] 1 drp OPB Q12 03/22/19 03/22/19 History metronidazole [MetroCream] 1 applic TOPICAL BID PRN 03/22/19 03/22/19 History omeprazole 20 mg PO QAM 03/22/19 03/22/19 History Past Med/Surg History Medical History History of hysterectomy (Chronic) Diastolic dysfunction (Chronic) JAKE (obstructive sleep apnea) (Chronic) CKD (chronic kidney disease), stage III (Chronic) Hypertension (Chronic) Intermittent asthma (Chronic) Hypothyroidism (Chronic) Atrial fibrillation (Chronic) Tachy-shantel syndrome (Chronic) Surgical History History of resection of meningioma (Chronic) History of tonsillectomy (Chronic) S/P placement of cardiac pacemaker (Chronic) Family History Mother Hypertension Father Prostate cancer Social History Preferred Language: [place] Communication Ability: Effective Pipe Machine Operator Required: No Beliefs That Will Affect Care: Sabianist Sabianist Beliefs: Rastafarian Current Living Situation: Spouse Other Information That Helps Us Care for You: No Feels Safe at Home: Yes Safety Concerns: Feels Safe At This Time Smoking Status: Never smoker Do You Dip or Chew Tobacco: No ; Second Hand Exposure: No ; Tobacco Cessation Education Requested by Patient: No Hx Alcohol Use: Yes Alcohol type: wine Alcohol Intake Frequency: Daily Alcohol Intake Frequency Comment: 1 glass of wine/day Hx Substance Use: No Review of Systems Review of Systems: ROS per HPI, all other systems reviewed and negative Physical Exam Constitutional: WD/WN, vitals as above Eyes: PERRL, conjunctivae normal, anicteric sclerae ENMT: external ear and nose normal, oropharynx normal Respiratory: normal respiratory effort, lungs clear to auscultation Cardiovascular: Rate/Rhythm: regular rate and regular rhythm Vessels: normal peripheral pulses Extremities: no edema Gastrointestinal (Abdomen): Inspection/Auscultation: normal bowel sounds; abdomen not distended Percussion/Palpation: + abdomen tender (Mild epigastric) and abdomen soft; no hepatosplenomegaly Musculoskeletal: no cyanosis or clubbing, extremities motor strength 5/5 Skin: no rashes, warm and dry Neurologic: PERRL, EOMI, accommodation nl, no face palsy, no dysarthria Psychiatric: A+Ox3, euthymic affect Results & Data Vital Signs (Past 12 Hours) Vital Signs Temp Pulse Pulse Resp BP BP Pulse Ox 03/22/19 20:34 66 18 133/60 99 03/22/19 19:47 66 14 137/56 L 98 03/22/19 17:59 36.7 C 72 20 116/71 99 Laboratory Results Short CBC 03/22/19 Range/Units 20:00 WBC 10.61 (4.8-10.8) K/uL Hgb 12.8 (12.0-16.0) g/dL Hct 36.7 L (37-47) % Plt Count 230 (130-400) K/uL BMP 03/22/19 20:00 Sodium 141 Potassium 4.6 Chloride 113 H Carbon Dioxide 19 L BUN 48 H Creatinine 2.57 H Glucose 102 H Calcium 9.0 Urine 03/22/19 Range/Units 20:14 Urine Color Yellow Urine Appearance Clear (Clear) Urine pH 5.5 (4.5-7.5) Ur Specific [place] 1.014 (1.000-1.030) Urine Protein Negative (Negative) Urine Glucose (UA) Negative (Negative) Code Status & VTE Plan Code Status Patient is a full code as per my discussion with her. VTE Prophylaxis Plan VTE Prophylaxis will be ordered: Yes Supervising Physician Co-Signing Physician Notes Care coordinated with MURALI Lee. Agree with above note. Patient seen and examined. Please refer to her notes for full details. Vital signs reviewed. Physical exam: General exam: Alert and oriented. Not in acute distress. CVS: S1 and S2 heard, regular rate and rhythm, no murmurs. RS: Clear to auscultation, no wheezing or crackles. ABD: Soft, bowel sounds present, epigastric tenderness present, no distention. SALON LEADER: Nonfocal. EXT: No edema, no erythema. Labs: Reviewed. Assessment and plan: 78F presents with ongoing abdominal pain and dizziness for few weeks. Out patinet labs showed cr 2.6 and was advised to come to ER. Last month her losartan dose was decresed from 100 to 50mg because of hypotension. Says abdominal pain more after eating food. Lost about 5 pounds in one month. No other complaints. a/p Rosaura presented with cr 2.5 baseline cr 1.2 holding losartan and aldactone ct abd/pelvis unremarkable will follow labs in am If no improvement will consider nephrology consult Epigastric abdominal pain going for several weeks on prilosec at home. nausea losing weight pain more after eating iv pepcid bid npo GI consult Other diagnosis and plan of care as per MURALI Lee.. Brice hobson MD.
--- NOTE | 2019-03-22 22:58 | CT Scan Report ---
CT abd pelvis wo con CT DOSE: 255.51 mGy.cm HISTORY: Pain abd pain, ROSAURA TECHNIQUE: Multiaxial CT images of the abdomen and pelvis were performed without contrast. A dose lo wering technique was utilized adhering to the principles of ALARA. COMPARISON STUDY: None. FINDINGS: Lung bases are clear. Liver spleen and pancreas are unremarkable. Several gallstones are pr esent. Kidneys are negative for hydronephrosis. There is no significant nephrocalcinosis. The abdominal bowel pattern is nonobstructive. There are scattered colonic diverticuli. The appendix is normal. The low rectosigmoid is air distended. Bladder is midline. No free fluid within the pelvic cul-de-sac . IMPRESSION: 1. Air distention of the low rectosigmoid. 2. Scattered colonic diverticuli with no evidence for diverticulitis. 3. Several small gallstones. 4. Study is otherwise negative. The above report was generated using voice recognition software. It may contain grammatical, syntax or spelling errors. Electronically signed by: Chris Ford M.D. 03/22/2019 10:56 PM
[2019-03-22] MEDS: SODIUM CHLORIDE 0.9% 1000ML 1,000 ML IV SCH (23:45)
[2019-03-23] MEDS: FLECAINIDE ACETATE 100 MG TABLET PO SCH ×3 (00:34→20:34)
[2019-03-23] MEDS: APIXABAN 2.5 MG TAB PO SCH ×2 (00:34→14:37)
[2019-03-23] MEDS: SENNA 8.6 MG TAB PO PRN ×2 (03:31→21:30)
[2019-03-23] MEDS: LEVOTHYROXINE SODIUM 100 MCG TABLET PO SCH (06:23)
[2019-03-23] MEDS: SODIUM CHLORIDE 0.9% 1000ML 1,000 ML IV SCH ×2 (06:47→16:49)
[2019-03-23 07:01] LABS: Hemoglobin 10.7 g/dL (12.0-16.0); Mean Corpuscular Hemoglobin 30.4 pg (25-34); Mean Corpuscular Hgb Conc 34.5 g/dL (32-36); Mean Corpuscular Volume 88.1 fL (80-100); Mean Platelet Volume 11.1 fL (7.4-10.4); Platelet Count 193 K/uL (130-400); RDW Coefficient of Variation 12.9 % (11.5-14.5); RDW Standard Deviation 41.1 fL (36.4-46.3); Red Blood Count 3.52 M/uL (4.2-5.4); White Blood Count 7.11 K/uL (4.8-10.8)
[2019-03-23 07:32] LABS: BUN Creatinine Ratio 17.8 (10-20); Calcium 8.6 mg/dl (8.5-10.1); Creatinine Clr Calc Pharmacy 14.7 ml/min; Est GFR (African American) 23.3; Est GFR (Non-African American) 20.1; Potassium 4.5 mmol/L (3.5-5.1)
[2019-03-23] MEDS ORDERED: PANTOprazole 40 MG TAB PO SCH (09:00)
[2019-03-23] MEDS ORDERED: FAMOTIDINE 20 MG in SYRINGE 3 ML IV SCH (09:00)
--- NOTE | 2019-03-23 11:06 | Gastrointestinal Consultation ---
Date of Consultation March 23, 2019 Assessment & Plan (1) ROSAURA (acute kidney injury): (2) Nausea: (3) Epigastric abdominal pain: Pt is a 78 y/o admitted w ROSAURA, currently seen for epigastric abd pain worse 2hr postprandially. She reports hx of PUD in her teenage years. Denies recent NSAIDs. ? GERD related chest tightness when eating resolved w PPI start. - Will increase Protonix to 40mg PO BID - DC Famotidine IV - Plan for EGD eval by Dr. Elam tomorrow (pt had Eliquis yesterday). Will start her on CL diet and keep her NPO after midnight. Supervising Physician Co-Signing Physician Notes I have personally seen and examined the patient with MURALI Rivera. Her note reflects my exam and findings. I agree with her impression and plan. Given symptoms, we will arrange EGD tomorrow. Discussed with at bedside as well. Eder Elam M.D. History of Present Illness Reason for Consultation: Epigastric pain Requesting Physician: Dr. Phil Ann Attending Physician: Dr. Eder Elam History of Present Illness Pt is a 78 y/o female admitted for ROSAURA. GI consulted for epigastric abd pain x 1 month, worse w food intake. She went for a 3 weeks [employer] cruise recently. However noted that prior to her trip she's been having symptoms of epigastric abd pain, nausea w/o vomiting, poor appetite,dizziness, weight loss of 5lbs recently. She is able to tolerate PO intake but said usually 2 hrs after eating, abd pain becomes worse. She denies any bowel habit changes such as diarrhea or constipation. She did have hx of PUD in her teens. Denies any uses of NSAIDs. Sh e did mention at one point had symptoms of chest tightness when eating, started on Prilosec by PCP and symptoms resolved. CT abd/pelvis w/o contrast showed air distension of low rectosigmoid, diverticuli w/o diverticulitis, several small gallstones. She cannot recall ever having EGD. Colonoscopies in 2006, 2009, 2017 showed diverticuli, adenomatous polyps, int hemorrhoids. Allergies Allergy/AdvReac Type Severity Reaction Status Date / Time latex Allergy Severe Rash Verified 03/22/19 19:32 Cephalosporins Allergy Intermediate HIVES Verified 03/22/19 19:32 Penicillins Allergy Intermediate HIVES Verified 03/22/19 19:32 cat dander Allergy Mild SHORTNESS Unverified 03/22/19 19:32 OF BREATH grass pollen-perennial rye, Allergy Mild SHORTNESS Unverified 03/22/19 19:32 standar OF BREATH mold Allergy Mild SHORTNESS Unverified 03/22/19 19:32 OF BREATH lisinopril Allergy Unknown UNKNOWN Verified 03/22/19 19:32 Dust Allergy Mild SHORTNESS Uncoded 03/22/19 19:32 OF BREATH Home Medications Home Medications Medication Instructions Recorded Confirmed Type albuterol sulfate [ProAir HFA] 2 puff INHALATION QID PRN 07/30/18 03/22/19 History alcaftadine [Lastacaft] 1 drp OPB DAILY PRN 07/30/18 03/22/19 History apixaban [Eliquis] 2.5 mg PO BID 07/30/18 03/22/19 History biotin 5,000 mcg PO Q2D 07/30/18 03/22/19 History cetirizine 5 mg PO DAILY PRN 07/30/18 03/22/19 History cyanocobalamin (vitamin B-12) 100 mcg PO QPM 07/30/18 03/22/19 History [Vitamin B-12] digoxin [Digitek] 125 mcg PO MOWEFR 07/30/18 03/22/19 History flecainide 100 mg PO BID 07/30/18 03/22/19 History hydrocortisone 1 applic TOPICAL TID PRN 07/30/18 03/22/19 History levothyroxine 100 mcg PO QAM 07/30/18 03/22/19 History losartan 50 mg PO QAM 07/30/18 03/22/19 History montelukast 10 mg PO QPM PRN 07/30/18 03/22/19 History slmackbrklts-bkqd-tgtbl acid 1 tab PO QPM 07/30/18 03/22/19 History [Centrum] pravastatin 20 mg PO HS 07/30/18 03/22/19 History sennosides [senna] 2 - 3 tab PO HS PRN 07/30/18 03/22/19 History spironolactone 25 mg PO QAM 07/30/18 03/22/19 History trazodone 50 mg PO HS 07/30/18 03/22/19 History azelastine 1 spray INTRANASAL BID PRN 03/22/19 03/22/19 History calcium carbonate-vitamin D3 2 tab PO DAILY 03/22/19 03/22/19 History [Caltrate 600 plus D] cyclosporine [Restasis] 1 drp OPB Q12 03/22/19 03/22/19 History metronidazole [MetroCream] 1 applic TOPICAL BID PRN 03/22/19 03/22/19 History omeprazole 20 mg PO QAM 03/22/19 03/22/19 History Patient History Medical History History of hysterectomy (Chronic) Diastolic dysfunction (Chronic) JAKE (obstructive sleep apnea) (Chronic) CKD (chronic kidney disease), stage III (Chronic) Hypertension (Chronic) Intermittent asthma (Chronic) Hypothyroidism (Chronic) Atrial fibrillation (Chronic) Tachy-shantel syndrome (Chronic) Surgical History History of resection of meningioma (Chronic) History of tonsillectomy (Chronic) S/P placement of cardiac pacemaker (Chronic) Family History Mother Hypertension Father Prostate cancer Social History Preferred Language: Khmer Communication Ability: Effective Plastic Parts Designer Required: No Beliefs That Will Affect Care: Yazidi Yazidi Beliefs: Anglican Current Living Situation: Spouse Other Information That Helps Us Care for You: No Feels Safe at Home: Yes Safety Concerns: Feels Safe At This Time Smoking Status: Never smoker Do You Dip or Chew Tobacco: No ; Second Hand Exposure: No ; Tobacco Cessation Education Requested by Patient: No Hx Alcohol Use: Yes Alcohol type: wine Alcohol Intake Frequency: Daily Alcohol Intake Frequency Comment: 1 glass of wine/day Hx Substance Use: No Review of Systems Review of Systems: All systems reviewed & are unremarkable except as noted in HPI & below Physical Exam Constitutional: WD/WN, vitals as above well groomed, cooperative and comfortable Eyes: PERRL, conjunctivae normal, anicteric sclerae ENMT: external ear and nose normal, oropharynx normal Respiratory: normal respiratory effort, lungs clear to auscultation Cardiovascular: RRR, no murmur, no edema Gastrointestinal (Abdomen): Inspection/Auscultation: + hypoactive bowel sounds Percussion/Palpation: + abdomen tender (epigastric ) and abdomen soft Skin: no rashes, warm and dry no jaundice Psychiatric: A+Ox3, euthymic affect Lymphatic: no lymphedema Results & Data Vital Signs (Past 12 Hours) Vital Signs Temp Pulse Pulse Resp BP Pulse Ox 03/23/19 07:33 36.7 C 64 16 130/74 97 03/23/19 07:24 60 03/23/19 05:23 36.8 C 62 18 114/66 96 03/22/19 23:30 68 Laboratory Results Laboratory Results - last 72 hr 03/22/19 03/22/19 03/22/19 20:00 20:00 20:14 WBC 10.61 RBC 4.20 Hgb 12.8 Hct 36.7 L MCV 87.4 MCH 30.5 MCHC 34.9 RDW Std Deviation 40.2 RDW Coeff of Vinh 12.6 Plt Count 230 MPV 10.9 H Immature Gran % (Auto) 0.4 Neut % (Auto) 76.2 Lymph % (Auto) 13.9 Faulk % (Auto) 6.1 Eos % (Auto) 2.9 Baso % (Auto) 0.5 Immature Gran # (Auto) 0.04 H Neut # (Auto) 8.09 H Lymph # (Auto) 1.47 Faulk # (Auto) 0.65 H Eos # (Auto) 0.31 Baso # (Auto) 0.05 Sodium 141 Potassium 4.6 Chloride 113 H Carbon Dioxide 19 L Anion Gap 9.0 BUN 48 H Creatinine 2.57 H Est Cr Clr Drug Dosing 13.0 Est GFR ( Amer) 20.0 Est GFR (Non-Af Amer) 17.2 BUN/Creatinine Ratio 18.7 Glucose 102 H Calcium 9.0 Urine Color Yellow Urine Appearance Clear Urine pH 5.5 Ur Specific [place] 1.014 Urine Protein Negative Urine Glucose (UA) Negative Urine Ketones Negative Urine Blood Negative Urine Nitrite Negative Urine Bilirubin Negative Urine Urobilinogen Negative Ur Leukocyte Esterase 1+ H Urine WBC (Auto) 10-30 H Urine RBC (Auto) 0-4 U Hyaline Cast (Auto) 1-5 U Epithel Cells (Auto) 10-20 H Urine Bacteria (Auto) Negative Digoxin 08/03/23/19 03/23/19 21:59 06:36 06:36 WBC 7.11 RBC 3.52 L Hgb 10.7 L Hct 31.0 L MCV 88.1 MCH 30.4 MCHC 34.5 RDW Std Deviation 41.1 RDW Coeff of Vinh 12.9 Plt Count 193 MPV 11.1 H Immature Gran % (Auto) Neut % (Auto) Lymph % (Auto) Faulk % (Auto) Eos % (Auto) Baso % (Auto) Immature Gran # (Auto) Neut # (Auto) Lymph # (Auto) Faulk # (Auto) Eos # (Auto) Baso # (Auto) Sodium 141 Potassium 4.5 Chloride 117 H Carbon Dioxide 19 L Anion Gap 5.0 BUN 40 H Creatinine 2.26 H D Est Cr Clr Drug Dosing 14.7 Est GFR ( Amer) 23.3 Est GFR (Non-Af Amer) 20.1 BUN/Creatinine Ratio 17.8 Glucose 92 Calcium 8.6 Urine Color Urine Appearance Urine pH Ur Specific [place] Urine Protein Urine Glucose (UA) Urine Ketones Urine Blood Urine Nitrite Urine Bilirubin Urine Urobilinogen Ur Leukocyte Esterase Urine WBC (Auto) Urine RBC (Auto) U Hyaline Cast (Auto) U Epithel Cells (Auto) Urine Bacteria (Auto) Digoxin 0.6 L
[2019-03-23] MEDS: CALCIUM 600MG + VIT D 400 IU TAB PO SCH (14:37)
--- NOTE | 2019-03-23 15:03 | Anesthesiology Consultation ---
Date of Service March 23, 2019 Assessment & Plan (1) Encounter for pre-operative examination: Chart Review Chart Review: Acceptable Risk for Surgery, Patient NOT seen in Pre Admission Testing and carpentry supervisor initiated Consults Requested none History Surgery Operation Date: 03/24/19 08:30 Proposed Procedures p Esophagogastroduodenoscopy Dr Papa Elam Height/Weight Height: 5 ft Weight: 52.7 kg Allergies Allergy/AdvReac Type Severity Reaction Status Date / Time latex Allergy Severe Rash Verified 03/22/19 19:32 Cephalosporins Allergy Intermediate HIVES Verified 03/22/19 19:32 Penicillins Allergy Intermediate HIVES Verified 03/22/19 19:32 cat dander Allergy Mild SHORTNESS Unverified 03/22/19 19:32 OF BREATH grass pollen-perennial rye, Allergy Mild SHORTNESS Unverified 03/22/19 19:32 standar OF BREATH mold Allergy Mild SHORTNESS Unverified 03/22/19 19:32 OF BREATH lisinopril Allergy Unknown UNKNOWN Verified 03/22/19 19:32 Dust Allergy Mild SHORTNESS Uncoded 03/22/19 19:32 OF BREATH Medications Home Medications Medication Instructions Recorded Confirmed Last Taken albuterol sulfate [ProAir HFA] 2 puff INHALATION QID PRN 07/30/18 03/22/19 Unknown alcaftadine [Lastacaft] 1 drp OPB DAILY PRN 07/30/18 03/22/19 Unknown apixaban [Eliquis] 2.5 mg PO BID 07/30/18 03/22/19 03/22/19 08:00 biotin 5,000 mcg PO Q2D 07/30/18 03/22/19 03/21/19 cetirizine 5 mg PO DAILY PRN 07/30/18 03/22/19 07/30/18 08:30 cyanocobalamin (vitamin B-12) 100 mcg PO QPM 07/30/18 03/22/19 03/22/19 08:00 [Vitamin B-12] digoxin [Digitek] 125 mcg PO MOWEFR 07/30/18 03/22/19 03/21/19 flecainide 100 mg PO BID 07/30/18 03/22/19 07/30/18 08:30 hydrocortisone 1 applic TOPICAL TID PRN 07/30/18 03/22/19 Unknown levothyroxine 100 mcg PO QAM 07/30/18 03/22/19 03/22/19 05:00 losartan 50 mg PO QAM 07/30/18 03/22/19 03/22/19 08:00 montelukast 10 mg PO QPM PRN 07/30/18 03/22/19 07/29/18 ykfyifyxmtwi-wyvo-hwsgq acid 1 tab PO QPM 07/30/18 03/22/19 07/30/18 08:30 [Centrum] pravastatin 20 mg PO HS 07/30/18 03/22/19 07/29/18 sennosides [senna] 2 - 3 tab PO HS PRN 07/30/18 03/22/19 Unknown spironolactone 25 mg PO QAM 07/30/18 03/22/19 03/22/19 08:00 trazodone 50 mg PO HS 07/30/18 03/22/19 07/29/18 azelastine 1 spray INTRANASAL BID PRN 03/22/19 03/22/19 Unknown calcium carbonate-vitamin D3 2 tab PO DAILY 03/22/19 03/22/19 Unknown [Caltrate 600 plus D] cyclosporine [Restasis] 1 drp OPB Q12 03/22/19 03/22/19 03/22/19 08:00 metronidazole [MetroCream] 1 applic TOPICAL BID PRN 03/22/19 03/22/19 Unknown omeprazole 20 mg PO QAM 03/22/19 03/22/19 03/22/19 08:00 Active Medications Generic Name Dose Route Start Last Admin Trade Name Freq PRN Reason Stop Dose Admin Apixaban 2.5 mg 03/22/19 23:24 03/23/19 14:37 Eliquis PO 04/21/19 23:23 Not Given BID FREYA Flecainide Acetate 50 mg 03/22/19 23:24 03/23/19 14:37 Tambocor PO 04/21/19 23:23 Not Given BID FREYA Sodium Chloride 1,000 mls @ 100 mls/hr 03/22/19 23:24 03/23/19 06:47 Nss 1000ml IV 04/21/19 23:23 100 mls/hr .Q10H FREYA Administration Levothyroxine Sodium 100 mcg 03/23/19 06:30 03/23/19 06:23 Synthroid PO 04/22/19 06:29 100 mcg DAILYBB FREYA Administration Multivitamins/Minerals 2 tab 03/23/19 09:00 03/23/19 14:37 Caltrate Plus PO 04/22/19 08:59 Not Given DAILY FREYA Sennosides 8.6 mg 03/22/19 23:24 03/23/19 03:31 Senokot PO 04/21/19 23:23 8.6 mg HS PRN Administration Constipation Past Medical History Medical History Epigastric abdominal pain (Acute) ROSAURA (acute kidney injury) (Acute) History of hysterectomy (Chronic) Diastolic dysfunction (Chronic) JAKE (obstructive sleep apnea) (Chronic) CKD (chronic kidney disease), stage III (Chronic) Hypertension (Chronic) Intermittent asthma (Chronic) Hypothyroidism (Chronic) Atrial fibrillation (Chronic) Tachy-shantel syndrome (Chronic) Past Family History Family History Mother Hypertension Father Prostate cancer Past Surgical History Surgical History History of resection of meningioma (Chronic) History of tonsillectomy (Chronic) S/P placement of cardiac pacemaker (Chronic) Social History Smoking Status: Never smoker Do You Dip or Chew Tobacco: No Hx Alcohol Use: Yes Alcohol type: wine alcohol intake frequency: 0-2 drinks per day Hx Substance Use: No Physical Exam Vital Signs Last Vital Signs Temp 36.8 C 03/23/19 11:19 Pulse 65 03/23/19 11:19 Resp 16 03/23/19 11:19 BP 136/67 03/23/19 11:19 Pulse Ox 98 03/23/19 11:19 Testing Laboratory Results 03/23/19 06:36 03/23/19 06:36 Urine Color Yellow 03/22/19 20:14 Urine Appearance Clear (Clear) 03/22/19 20:14 Urine pH 5.5 (4.5-7.5) 03/22/19 20:14 Ur Specific [place] 1.014 (1.000-1.030) 03/22/19 20:14 Urine Protein Negative (Negative) 03/22/19 20:14 Urine Glucose (UA) Negative (Negative) 03/22/19 20:14 Urine Ketones Negative (Negative) 03/22/19 20:14 Urine Nitrite Negative (Negative) 03/22/19 20:14 Ur Leukocyte Esterase 1+ (Negative) H 03/22/19 20:14 Urine WBC (Auto) 10-30 /hpf (0-5) H 03/22/19 20:14 Urine RBC (Auto) 0-4 /hpf (0-4) 03/22/19 20:14 U Hyaline Cast (Auto) 1-5 /lpf (0-5) 03/22/19 20:14 U Epithel Cells (Auto) 10-20 /lpf (0-5) H 03/22/19 20:14 Urine Bacteria (Auto) Negative (Negative) 03/22/19 20:14 03/22/19 20:14 Urine Culture - Final Urine,Clean Catch More than three types of organisms present, all low counts mixed probable skin augustine. No further identifications or sensitivities to follow.
[2019-03-23] MEDS: metroNIDAZOLE 0.75% TOPICAL GEL 45 GM TUBE TOP SCH (20:33)
[2019-03-23] MEDS: PRAVASTATIN SOD 20 MG TAB PO SCH (20:34)
[2019-03-23] MEDS: PANTOprazole 40 MG TAB PO SCH (20:34)
[2019-03-23] MEDS: CEROVITE ADV FORMULA TAB PO SCH (20:35)
[2019-03-23] MEDS: CYANOCOBALAMIN (VITAMIN B-12) 100 MCG TABLET PO SCH (20:35)
[2019-03-23] MEDS ORDERED: DIGOXIN 0.125 MG TAB PO ONE (21:38)
[2019-03-23] MEDS ORDERED: SENNA 8.6 MG TAB PO PRN (21:39)
--- NOTE | 2019-03-23 22:22 | Hospitalist Progress Note ---
Date of Service March 23, 2019 Assessment & Plan (1) Epigastric abdominal pain: Epigastric abdominal pain (Acute) No acute findings on CT. GI consulted. EGD planned for tomorrow. ROSAURA (acute kidney injury) (Acute) / CKD (chronic kidney disease), stage III (Chronic) CKD 3 with baseline creatinine around 1. Creatinine at time of admission was 2.57. Receiving IV fluids. Creatinine today 2.26. Continue IV fluids. Consult Nephrology if no improvement. Diastolic dysfunction (Chronic) History of left ventricular diastolic heart failure. Compensated. Monitor closely with IV fluid administration. Atrial fibrillation (Chronic) / Tachy-shantel syndrome (Chronic) In sinus rhythm at time of admission. Continue digoxin, flecainide, apixaban (on hold for EGD). Hypertension (Chronic) Continue losartan. Intermittent asthma (Chronic) Pulm status stable. Hypothyroidism (Chronic) Continue levothyroxine. DVT prophylaxis On apixaban at time of admission for AF. Apixaban on hold for EGD. SCD's. Ambulate. Disposition Anticipated discharge to home. Family Medicine follow-up with Dr. Benito. Subjective Recheck for multiple problems. Patient seen in their room around 1900. Admitted last night with abdominal pain and ROSAURA. Feels better today. Epigastric pain improved. No nausea, vomiting, diarrhea, melena, hematochezia. Seen by GI. EGD planned for tomorrow. Review of Systems: Constitutional- no fever. Cardiac- no chest pain. Pulmonary- no cough or SOB. GI- as noted above. - no urinary symptoms. Otherwise, as noted above. Physical Exam Constitutional: no acute distress Respiratory: no respiratory distress Auscultation: lungs clear to auscultation bilaterally Cardiovascular: Rate/Rhythm: regular rate and regular rhythm Heart Sounds: no gallop Vessels: no JVD Extremities: no calf tenderness and no edema Gastrointestinal (Abdomen): normal bowel sounds, soft, nontender, no hepatosplenomegaly Skin: no rashes, warm and dry Psychiatric: Orientation: alert and oriented x 3 Results & Data Vital Signs (Past 12 Hours) Vital Signs Temp Pulse Pulse Resp BP BP Pulse Ox 03/23/19 21:50 65 03/23/19 19:22 36.8 C 64 20 121/62 97 03/23/19 16:10 67 03/23/19 15:36 36.7 C 76 22 148/67 H 94 03/23/19 11:19 36.8 C 65 16 136/67 98 Laboratory Results 03/23/19 06:36 03/23/19 06:36
[2019-03-24] MEDS: SODIUM CHLORIDE 0.9% 1000ML 1,000 ML IV SCH ×2 (02:47→17:16)
[2019-03-24] MEDS: LEVOTHYROXINE SODIUM 100 MCG TABLET PO SCH (06:01)
[2019-03-24 06:34] LABS: BUN Creatinine Ratio 14.7 (10-20); Calcium 8.3 mg/dl (8.5-10.1); Creatinine Clr Calc Pharmacy 15.7 ml/min; Est GFR (African American) 25.2; Est GFR (Non-African American) 21.7; Potassium 4.1 mmol/L (3.5-5.1)
[2019-03-24] MEDS: metroNIDAZOLE 0.75% TOPICAL GEL 45 GM TUBE TOP SCH ×3 (09:00→20:57)
--- NOTE | 2019-03-24 09:23 | Gastroenterology Progress Note ---
Date of Service March 24, 2019 Assessment & Plan (1) Epigastric abdominal pain: 78 year old female admitted with epigastric pain w/o nausea, vomiting, black/bloody stools. NPO for EGD evaluation given history of gastric ulcers. Slight drop in HGB but BUN trending down in the setting of ROSAURA Hemodynamically stable Eliquis on hold Continue PPI NPO for EGD today Thank you for allowing us to participate in the care of this patient. Please call with any acute changes, questions or concerns. Please see addendum below with additional recommendation from my supervising physician. Present on Admission?: Yes Supervising Physician Co-Signing Physician Notes I have personally seen and examined the patient with MURALI Tenorio. Her note reflects my exam and findings. I agree with her impression and plan. Awaiting EGD this morning. Eder Elam M.D. Subjective Pt was seen and evaluated, chart reviewed Is NPO for EGD this AM Endorses persistent upper abd pain No nausea, vomiting No black or bloody stools. Notes a history of gastric ulcers in the past denies fever, chills, CP, SOB Review of Systems Constitutional: no fever, no chills and no fatigue Respiratory: no cough, no dyspnea and no wheezing Cardiovascular: no chest pain, no dyspnea on exertion and no claudication Gastrointestinal: + abdominal pain; no bloating, no nausea, no coffee ground emesis, no hematemesis, no change in stools, no blood in stools and no melena Physical Exam Constitutional: well developed and well nourished; no acute distress Respiratory: normal respiratory effort, lungs clear to auscultation Cardiovascular: RRR, no murmur, no edema Gastrointestinal (Abdomen): normal bowel sounds, soft, nontender, no hepatosplenomegaly Results & Data Vital Signs (Past 12 Hours) Vital Signs Temp Pulse Pulse Resp BP BP Pulse Ox 03/24/19 06:48 36.8 C 57 L 18 132/73 96 03/24/19 03:00 36.7 C 60 18 123/72 98 03/24/19 00:15 62 03/23/19 22:45 36.8 C 61 18 129/72 96 03/23/19 21:50 65 Laboratory Results 03/24/19 Range/Units 05:47 Sodium 145 (136-145) mmol/L Potassium 4.1 (3.5-5.1) mmol/L Chloride 120 H (98-107) mmol/L Carbon Dioxide 18 L (21-32) mmol/L Anion Gap 6.0 (3-11) BUN 31 H (7-18) mg/dl Creatinine 2.12 H (0.6-1.2) mg/dl Est Cr Clr Drug Dosing 15.7 ml/min Est GFR ( Amer) 25.2 Est GFR (Non-Af Amer) 21.7 BUN/Creatinine Ratio 14.7 (10-20) Glucose 88 (70-99) mg/dl Calcium 8.3 L (8.5-10.1) mg/dl
[2019-03-24] MEDS: CALCIUM 600MG + VIT D 400 IU TAB PO SCH (10:17)
[2019-03-24] MEDS: FLECAINIDE ACETATE 100 MG TABLET PO SCH ×2 (10:19→20:53)
[2019-03-24] MEDS: PANTOprazole 40 MG TAB PO SCH ×2 (10:19→20:52)
[2019-03-24] MEDS ORDERED: LIDOCAINE HCL 2% 2 ML VIAL/AMP(20MG/ML) INFIL ONE (11:17)
[2019-03-24] MEDS ORDERED: PROPOFOL IV EMULSION 10 MG/ML 20 ML VIAL IV ONE (11:17)
--- NOTE | 2019-03-24 12:13 | GI REPORT ---
Patient Name: Lillian Horton Procedure Date: 03/24/2019 11:52 AM Date of : 1940 Admit Type: Inpatient Age: 78 Gender: Female Attending MD: Eder Elam MD Procedure: Upper GI endoscopy Providers: Eder Elam MD Referring MD: CHAKA CORNELIUS Indications: Epigastric abdominal pain, Heartburn Medicines: See the Anesthesia note for documentation of the administered medications Complications: No immediate complications. Estimated Blood Loss: Estimated blood loss: none. Procedure: Pre-Anesthesia Assessment: - Prior to the procedure, a History and Physical was performed, and patient medications, allergies and sensitivities were reviewed. The patient's tolerance of previous anesthesia was reviewed. - The risks and benefits of the procedure and the sedation options and risks were discussed with the patient. All questions were answered and informed consent was obtained. - Patient identification and proposed procedure were verified prior to the procedure by the physician and the nurse. The procedure was verified in the pre-procedure area. - Pre-procedure physical examination revealed no contraindications to sedation. - After reviewing the risks and benefits, the patient was deemed in satisfactory condition to undergo the procedure. After obtaining informed consent, the endoscope was passed under direct vision. Throughout the procedure, the patient's blood pressure, pulse, and oxygen saturations were monitored continuously. The Endoscope was introduced through the mouth, and advanced to the third part of duodenum. The upper GI endoscopy was accomplished without difficulty. The patient tolerated the procedure well. Findings: The esophagus was normal. The stomach was normal. The examined duodenum was normal. The cardia and gastric fundus were normal on retroflexion. Impression: - Normal esophagus. - Normal stomach. - Normal examined duodenum. - No specimens collected. Recommendation: - [facility] care. Eder Elam M.D. Eder Elam MD 03/24/2019 12:13:04 PM This report has been signed electronically. Note Initiated On: 03/24/2019 11:52 AM Number of Addenda: 0 I attest to the content of the Intraoperative Record and orders documented therein, exceptions below {[id number]}
--- NOTE | 2019-03-24 13:13 | Anesthesiology Progress Note ---
Date of Service March 24, 2019 Anesthesia Post Procedure Vital Signs Vital Signs: Temp Pulse Pulse Resp BP BP Pulse Ox 03/24/19 12:36 60 16 144/83 H 97 03/24/19 12:20 60 18 169/75 H 98 03/24/19 12:04 60 18 123/47 L 98 03/24/19 11:12 36.8 C 64 18 171/77 H 97 03/24/19 06:48 36.8 C 57 L 18 132/73 96 03/24/19 03:00 36.7 C 60 18 123/72 98 03/24/19 00:15 62 03/23/19 22:45 36.8 C 61 18 129/72 96 03/23/19 21:50 65 03/23/19 19:22 36.8 C 64 20 121/62 97 03/23/19 16:10 67 03/23/19 15:36 36.7 C 76 22 148/67 H 94 Pain Intensity Abdomen: Pain Intensity: 2 Transfer of Care Handoff Completed per policy Notes Mental Status: alert / awake / arousable and participated in evaluation Nausea / Vomiting: adequately controlled Pain: adequately controlled Airway Patency, RR, SpO2: stable & adequate BP & HR: stable & adequate Hydration State: stable & adequate Anesthetic Complications: no major complications apparent and Pt Satisfied with anesthetic care
[2019-03-24] MEDS ORDERED: DIGOXIN 0.125 MG TAB PO SCH (16:00)
--- NOTE | 2019-03-24 18:55 | Hospitalist Progress Note ---
Date of Service March 24, 2019 Assessment & Plan (1) Epigastric abdominal pain: CT abd/pelvis showed no acute findings on GI consulted. EGD done today was normal Continue PPI Acute kidney injury on hronic kidney disease stage III Creatinine on admission around 2.57, baseline creatinine around 1. Receiving IVF Creatinine today 2.12 Continue to hold Losartan and spironolactone If creatinine does not trend down, will consult Nephrology Monitor BMP Diastolic dysfunction (Chronic) History of left ventricular diastolic heart failure. Will monitor closely for for fluid overload Spironolactone on hold due to elevate creatinine Monitor closely with IV fluid administration. Atrial fibrillation Tachy-shantel syndrome Continue digoxin, flecainide Apixaban was on hold for the EGD, will resume tonight Stable Hypertension (Chronic) BP has been fluctuates Losartan on hold due to ROSAURA Monitor BP Intermittent asthma (Chronic) Stable. Hypothyroidism Continue levothyroxine. DVT prophylaxis. On Apixaban SCD's. Ambulate. Disposition Family Medicine follow-up with Dr. Benito. Will discharge once medically stable. Subjective Pt was seen and examined Lying in bed with no distress Pt said that she feels ok Denies any chest pain, palpitation, dizziness and SOB Physical Exam Physical Exam: General- No acute distress Head- atraumatic Eyes- PERRL, EOMI, ENT- oropharynx clear Neck- supple, no JVD Lungs- clear to auscultation Heart- regular rhythm; no murmur Abdomen- normal bowel sounds, soft, nontender Extremities- no calf tenderness Neuro- alert, oriented x 3; PERRL, EOMI; no facial palsy; no dysarthria Skin- warm & dry Results & Data Vital Signs (Past 12 Hours) Vital Signs Temp Pulse Pulse Resp BP BP Pulse Ox 03/24/19 17:13 60 03/24/19 16:41 60 03/24/19 15:31 36.8 C 65 16 149/77 H 98 03/24/19 12:36 60 16 144/83 H 97 03/24/19 12:20 60 18 169/75 H 98 03/24/19 12:04 60 18 123/47 L 98 03/24/19 11:12 36.8 C 64 18 171/77 H 97 03/24/19 06:48 36.8 C 57 L 18 132/73 96
[2019-03-24] MEDS: PRAVASTATIN SOD 20 MG TAB PO SCH (20:55)
[2019-03-24] MEDS: CEROVITE ADV FORMULA TAB PO SCH (20:55)
[2019-03-24] MEDS: CYANOCOBALAMIN (VITAMIN B-12) 100 MCG TABLET PO SCH (20:56)
[2019-03-24] MEDS: APIXABAN 2.5 MG TAB PO SCH (21:01)
[2019-03-25] MEDS: SODIUM CHLORIDE 0.9% 1000ML 1,000 ML IV SCH (03:24)
[2019-03-25] MEDS: LEVOTHYROXINE SODIUM 100 MCG TABLET PO SCH (05:50)
[2019-03-25 07:05] LABS: Hematocrit (blood only) 28.9 % (37-47); Mean Corpuscular Hemoglobin 30.7 pg (25-34); Mean Corpuscular Hgb Conc 34.6 g/dL (32-36); Mean Corpuscular Volume 88.7 fL (80-100); Platelet Count 169 K/uL (130-400); RDW Coefficient of Variation 12.6 % (11.5-14.5); RDW Standard Deviation 40.8 fL (36.4-46.3); Red Blood Count 3.26 M/uL (4.2-5.4); White Blood Count 6.24 K/uL (4.8-10.8)
[2019-03-25 07:43] LABS: BUN Creatinine Ratio 12.3 (10-20); Calcium 8.1 mg/dl (8.5-10.1); Creatinine Clr Calc Pharmacy 16.5 ml/min; Est GFR (African American) 26.7; Potassium 3.7 mmol/L (3.5-5.1)
--- NOTE | 2019-03-25 07:49 | Anesthesiology Progress Note ---
Date of Service March 25, 2019 Anesthesia Post Procedure Vital Signs Vital Signs: Temp Pulse Pulse Resp BP BP Pulse Ox 03/25/19 07:35 65 03/25/19 07:07 36.8 C 59 L 16 131/70 95 03/25/19 03:47 36.8 C 58 L 17 152/73 H 95 03/25/19 01:26 64 03/25/19 00:06 60 153/77 H 03/24/19 22:56 36.8 C 63 18 167/72 H 98 03/24/19 19:06 36.8 C 62 18 152/78 H 97 03/24/19 17:13 60 03/24/19 16:41 60 03/24/19 15:31 36.8 C 65 16 149/77 H 98 03/24/19 12:36 60 16 144/83 H 97 03/24/19 12:20 60 18 169/75 H 98 03/24/19 12:04 60 18 123/47 L 98 03/24/19 11:12 36.8 C 64 18 171/77 H 97 Pain Intensity Abdomen: Pain Intensity: 2 Notes Mental Status: alert / awake / arousable and participated in evaluation Patient Amnestic to Procedure: Yes Nausea / Vomiting: adequately controlled Pain: adequately controlled Airway Patency, RR, SpO2: stable & adequate BP & HR: stable & adequate Hydration State: stable & adequate Anesthetic Complications: no major complications apparent and Pt Satisfied with anesthetic care
[2019-03-25] MEDS: PANTOprazole 40 MG TAB PO SCH ×2 (08:46→20:57)
[2019-03-25] MEDS: FLECAINIDE ACETATE 100 MG TABLET PO SCH ×2 (08:47→20:59)
[2019-03-25] MEDS: metroNIDAZOLE 0.75% TOPICAL GEL 45 GM TUBE TOP SCH ×3 (08:48→20:57)
[2019-03-25] MEDS: APIXABAN 2.5 MG TAB PO SCH ×2 (08:48→20:56)
[2019-03-25] MEDS: CALCIUM 600MG + VIT D 400 IU TAB PO SCH (08:49)
[2019-03-25] MEDS: AMLODIPINE BESYLATE 5 MG TAB PO SCH (10:00)
[2019-03-25] MEDS: ACETAMINOPHEN 325 MG TAB PO PRN ×2 (14:04→21:05)
--- NOTE | 2019-03-25 16:05 | Hospitalist Progress Note ---
Date of Service March 25, 2019 Assessment & Plan (1) Epigastric abdominal pain: CT abd/pelvis showed no acute findings on GI consulted. EGD done today was normal Continue PPI Acute kidney injury on hronic kidney disease stage III Creatinine on admission around 2.57, baseline creatinine around 1. Receiving IVF Creatinine today 2.02 Continue to hold Losartan and spironolactone on discharge Case discussed with nephrology (unofficial consult), will follow outpatient Will check BMP within 1 week Diastolic dysfunction (Chronic) History of left ventricular diastolic heart failure. Will monitor closely for for fluid overload Spironolactone on hold due to elevate creatinine DC IV fluid Atrial fibrillation Tachy-shantel syndrome Continue digoxin, flecainide Apixaban resumed after the EGD Stable Hypertension (Chronic) BP has been fluctuates Losartan and spironolactone on hold due to ROSAURA starting on Amlodipine 2.5 mg Monitor BP Intermittent asthma (Chronic) Stable. Hypothyroidism Continue levothyroxine. DVT prophylaxis. On Apixaban SCD's. Ambulate. Disposition Family Medicine follow-up with Dr. Benito. on 04/01 @ 11:05 AM Follow up with nephrology Dr. Tovar on 04/12 @ 1PM at the [facility] Check BMP within 1 week Subjective Pt was seen and examined Lying in bed with no distress Pt said that she feels much better today Denies any chest pain, palpitation, dizziness and SOB Physical Exam Physical Exam: General- No acute distress Head- atraumatic Eyes- PERRL, EOMI, ENT- oropharynx clear Neck- supple, no JVD Lungs- clear to auscultation Heart- regular rhythm; no murmur Abdomen- normal bowel sounds, soft, nontender Extremities- no calf tenderness Neuro- alert, oriented x 3; PERRL, EOMI; no facial palsy; no dysarthria Skin- warm & dry Results & Data Vital Signs (Past 12 Hours) Vital Signs Temp Pulse Pulse Resp BP BP Pulse Ox 03/25/19 15:14 36.7 C 85 18 144/74 H 97 03/25/19 11:15 36.8 C 60 16 124/66 96 03/25/19 07:35 65 03/25/19 07:07 36.8 C 59 L 16 131/70 95
[2019-03-25 16:11] LABS: Creatinine Clr Calc Pharmacy 15.6 ml/min; Est GFR (African American) 25.1; Est GFR (Non-African American) 21.6
[2019-03-25] MEDS ORDERED: METOPROLOL TARTRATE 1 MG/ML VIAL IV PRN (18:44)
[2019-03-25] MEDS ORDERED: POTASSIUM CHLORIDE 20 MEQ TABCR PO ONE (18:45)
[2019-03-25] MEDS: MAGNESIUM SULFATE / D5W 1 GM/100 ML BAG IV SCH ×2 (20:50→22:09)
[2019-03-25] MEDS: CEROVITE ADV FORMULA TAB PO SCH (20:57)
[2019-03-25] MEDS: PRAVASTATIN SOD 20 MG TAB PO SCH (20:58)
[2019-03-25] MEDS: CYANOCOBALAMIN (VITAMIN B-12) 100 MCG TABLET PO SCH (21:00)
[2019-03-26] MEDS: SODIUM CHLORIDE 0.9% 1000ML 1,000 ML IV SCH ×2 (02:08→08:01)
[2019-03-26] MEDS ORDERED: Nursing to Pharmacy Communication ONE (02:16)
[2019-03-26] MEDS: LEVOTHYROXINE SODIUM 100 MCG TABLET PO SCH (05:38)
[2019-03-26 08:09] LABS: BUN Creatinine Ratio 10.4 (10-20); Calcium 8.6 mg/dl (8.5-10.1); Creatinine Clr Calc Pharmacy 15.8 ml/min; Est GFR (African American) 25.3; Est GFR (Non-African American) 21.9; Potassium 3.9 mmol/L (3.5-5.1)
[2019-03-26] MEDS: AMLODIPINE BESYLATE 5 MG TAB PO SCH (08:39)
[2019-03-26] MEDS: CALCIUM 600MG + VIT D 400 IU TAB PO SCH (08:39)
[2019-03-26] MEDS: PANTOprazole 40 MG TAB PO SCH (08:40)
[2019-03-26] MEDS: FLECAINIDE ACETATE 100 MG TABLET PO SCH (08:40)
[2019-03-26] MEDS: metroNIDAZOLE 0.75% TOPICAL GEL 45 GM TUBE TOP SCH ×2 (08:40→12:19)
[2019-03-26] MEDS: APIXABAN 2.5 MG TAB PO SCH (08:40)
--- NOTE | 2019-03-26 12:24 | Hospitalist Progress Note ---
Date of Service March 26, 2019 Assessment & Plan (1) Epigastric abdominal pain: CT abd/pelvis showed no acute findings on GI consulted. EGD done was normal Continue PPI Acute kidney injury on hronic kidney disease stage III Creatinine on admission around 2.57, baseline creatinine around 1. Receiving IVF Creatinine today 2.1 Continue to hold Losartan and spironolactone on discharge Nephrology on board Ok from nephrology standpoint to discharge home Will avoid nephrotoxic agents Will check BMP within 1 week Diastolic dysfunction (Chronic) History of left ventricular diastolic heart failure. Will monitor closely for for fluid overload Spironolactone on hold due to elevate creatinine DC IV fluid Atrial fibrillation Tachy-shantel syndrome Went to Afib yesterday and spontaneous converted to NSR Continue digoxin, flecainide Apixaban resumed after the EGD Stable Hypertension (Chronic) BP has been fluctuates Losartan and spironolactone on hold due to ROSAURA Case discussed with nephrology recommended to hold BP med for now Monitor BP ad PCP can start on low dose amlodipine if BP uncontrol Intermittent asthma (Chronic) Stable. Hypothyroidism Continue levothyroxine. DVT prophylaxis. On Apixaban SCD's. Ambulate. Disposition Family Medicine follow-up with Dr. Benito. on 04/01 @ 11:05 AM Follow up with nephrology Dr. Tovar on 04/12 @ 1PM at the [facility] Check BMP within 1 week Subjective Pt was seen and examined Lying in bed with no distress Pt said that she feels much better She said that she walked around with no distress Was in Afib yesterday and spontaneously convert to NSR Denies any chest pain, palpitation, dizziness and SOB Physical Exam Physical Exam: General- No acute distress Head- atraumatic Eyes- PERRL, EOMI, ENT- oropharynx clear Neck- supple, no JVD Lungs- clear to auscultation Heart- regular rhythm; no murmur Abdomen- normal bowel sounds, soft, nontender Extremities- no calf tenderness Neuro- alert, oriented x 3; PERRL, EOMI; no facial palsy; no dysarthria Skin- warm & dry Results & Data Vital Signs (Past 12 Hours) Vital Signs Temp Pulse Pulse Resp BP Pulse Ox 03/26/19 11:46 36.5 C 60 18 164/78 H 97 03/26/19 06:32 36.6 C 60 18 138/73 96 03/26/19 04:00 36.2 C L 60 18 109/65 97 03/26/19 01:28 60
--- NOTE | 2019-03-26 17:37 | Nephrology Consultation ---
Date of Consultation March 26, 2019 Assessment & Plan (1) ROSAURA (acute kidney injury): Patient with acute kidney injury on CKD. Baseline creatinine of 1.2. Her creatinine now has diagnosed around 2.1. Etiology of acute kidney injury is likely ischemic ATN in setting of hypotension. Agree with holding oral anti- hypertensives. Patient is euvolemic and no need for IV fluids. She may have to tolerate a slightly higher blood pressure with goal of systolic of 140 at 150. Patient is eager to be discharged. She can be discharged off antihypertensives. She will monitor blood pressure at home and notify myself or cardiology or primary care physician if systolic is above 150 to restart medications. We will continue to monitor BMP next week and follow-up in the office. (2) Diastolic CHF: Patient previously on Aldactone and losartan high doses. We are holding both medications in setting of acute kidney injury and symptomatic hypotension (3) Hypertension: BP is labile. She will likely need a calcium channel myrtle but okay to hold off for now until follow-up in the office. We discussed need to limit salt intake and monitor blood pressure at home. History of Present Illness Reason for Consultation: Acute kidney injury on CKD Requesting Physician: Hai Disla MD Attending Physician: Hai Disla MD History of Present Illness 70-year-old female with CKD stage III baseline creatinine of 1.2 as of July 2018 who was admitted on 03/22/2019 with acute kidney injury with a creatinine of 2.6. Patient reports that about 1 month ago, she noted her blood pressure to be very low and she was feeling lightheaded and dizzy. She contacted her air defense specialist who recommended for her to reduce her losartan from 100 mg daily to 50 mg daily. Patient reports that shortly after, she was in [place] for 3 weeks on a cruise. She reports that while her blood pressure did improve with this medication adjustment, her symptoms did not. After the cruise she was found to have a creatinine of 4 by the PCP and sent to the ER. Patient has received IV fluids over the course of admission and creatinine has stagnated around 2.1. She feels well now denies any vomiting or diarrhea. No lightheadedness. Her blood pressure is controlled. She was initially on high doses of losartan and Aldactone. Both medications held during this admission. She has been on low- dose amlodipine. No urinary symptoms no shortness of breath and no leg edema. She is eager to be discharged today. Patient was seen during morning rounds. Allergies Allergy/AdvReac Type Severity Reaction Status Date / Time latex Allergy Severe Rash Verified 03/24/19 11:11 Cephalosporins Allergy Intermediate HIVES Verified 03/24/19 11:11 Penicillins Allergy Intermediate HIVES Verified 03/24/19 11:11 cat dander Allergy Mild SHORTNESS Verified 03/24/19 11:11 OF BREATH grass pollen-perennial rye, Allergy Mild SHORTNESS Verified 03/24/19 11:11 standar OF BREATH mold Allergy Mild SHORTNESS Verified 03/24/19 11:11 OF BREATH lisinopril Allergy Unknown UNKNOWN Verified 03/24/19 11:11 Dust Allergy Mild SHORTNESS Uncoded 03/24/19 11:11 OF BREATH Home Medications Home Medications Medication Instructions Recorded Confirmed Type Centrum 1 tab PO QPM 07/30/18 03/22/19 History albuterol sulfate 2 puff INHALATION QID PRN 07/30/18 03/22/19 History alcaftadine 1 drp OPB DAILY PRN 07/30/18 03/22/19 History apixaban 2.5 mg PO BID 07/30/18 03/22/19 History biotin 5,000 mcg PO Q2D 07/30/18 03/22/19 History cetirizine 5 mg PO DAILY PRN 07/30/18 03/22/19 History cyanocobalamin (vitamin B-12) 100 mcg PO QPM 07/30/18 03/22/19 History [Vitamin B-12] digoxin 125 mcg PO MOWEFR 07/30/18 03/22/19 History flecainide 100 mg PO BID 07/30/18 03/22/19 History hydrocortisone 1 applic TOPICAL TID PRN 07/30/18 03/22/19 History levothyroxine 100 mcg PO QAM 07/30/18 03/22/19 History montelukast 10 mg PO QPM PRN 07/30/18 03/22/19 History pravastatin 20 mg PO HS 07/30/18 03/22/19 History sennosides [senna] 2 - 3 tab PO HS PRN 07/30/18 03/22/19 History trazodone 50 mg PO HS 07/30/18 03/22/19 History Caltrate 600 plus D 2 tab PO DAILY 03/22/19 03/22/19 History Restasis 1 drp OPB Q12 03/22/19 03/22/19 History azelastine 1 spray INTRANASAL BID PRN 03/22/19 03/22/19 History metronidazole [MetroCream] 1 applic TOPICAL BID PRN 03/22/19 03/22/19 History omeprazole 20 mg PO QAM 03/22/19 03/22/19 History Patient History Medical History Diastolic CHF (Chronic) Epigastric abdominal pain (Acute) ROSAURA (acute kidney injury) (Acute) History of hysterectomy (Chronic) Diastolic dysfunction (Chronic) JAKE (obstructive sleep apnea) (Chronic) CKD (chronic kidney disease), stage III (Chronic) Hypertension (Chronic) Intermittent asthma (Chronic) Hypothyroidism (Chronic) Atrial fibrillation (Chronic) Tachy-shantel syndrome (Chronic) Surgical History History of resection of meningioma (Chronic) History of tonsillectomy (Chronic) S/P placement of cardiac pacemaker (Chronic) Family History Mother Hypertension Father Prostate cancer Social History Preferred Language: Greek Communication Ability: Effective Bottle Machine Operator Required: No Beliefs That Will Affect Care: Roman Catholic Roman Catholic Beliefs: Gnosticist Current Living Situation: Spouse Other Information That Helps Us Care for You: No Feels Safe at Home: Yes Safety Concerns: Feels Safe At This Time Smoking Status: Never smoker Do You Dip or Chew Tobacco: No ; Second Hand Exposure: No ; Tobacco Cessation Education Requested by Patient: No Hx Alcohol Use: Yes Alcohol type: wine Alcohol Intake Frequency: Daily Alcohol Intake Frequency Comment: 1 glass of wine/day Hx Substance Use: No Review of Systems Review of Systems: All systems reviewed & are unremarkable except as noted in HPI & below Physical Exam Physical Exam: General exam: Appears comfortable, no acute distress HEENT: Pupils are equal and reactive to light Neck: No JVD, neck is supple trachea is midline Respiratory system: Clear breath sounds bilaterally. Gastrointestinal: Abdomen is soft, non distended, non tender, bowel sounds are present CVS: Regular rate and rhythm. No murmurs, rubs or gallops Musculoskeletal: No joint or muscle tenderness Extremities: Non tender, no edema, peripheral pulses are present Neuro: Oriented, no tremors, no focal neurological deficits Skin: No rashes Results & Data Vital Signs (Past 12 Hours) Vital Signs Temp Pulse Resp BP BP Pulse Ox 03/26/19 12:43 36.5 C 60 18 164/78 H 144/74 H 97 03/26/19 11:46 36.5 C 60 18 164/78 H 97 03/26/19 06:32 36.6 C 60 18 138/73 96 Laboratory Results Laboratory Results - last 24 hr 03/25/19 03/26/19 03/26/19 18:49 07:37 07:37 Sodium 143 Potassium 3.9 Chloride 117 H Carbon Dioxide 21 Anion Gap 5.0 BUN 22 H Creatinine 2.11 H Est Cr Clr Drug Dosing 15.8 Est GFR ( Amer) 25.3 Est GFR (Non-Af Amer) 21.9 BUN/Creatinine Ratio 10.4 Glucose 100 H Calcium 8.6 Magnesium 1.4 L 2.3
--- NOTE | 2019-03-27 08:05 | Discharge Summary ---
Date of Service March 26, 2019 Admission HPI Per Admitting Provider 70-year-old female who was referred to the ED by her outpatient doctor for evaluation of abnormal renal function, abdominal pain, lightheadedness. Patient reports that about 1 month ago, she noted her blood pressure to be very low and she was feeling lightheaded and dizzy. She contacted her mold insert changer who recommended for her to reduce her losartan from 100 mg daily to 50 mg daily. Patient reports that shortly after, she was in [place] for 3 weeks on a cruise. She reports that while her blood pressure did improve with this medication adjustment, her symptoms did not. She reports that she has continued to feel lightheaded and dizzy. She has not had any syncopal events however she reports she has fallen to the ground a few times. When she returned home 1 week ago, she was seen again by an outpatient provider who recommended that she stop taking the gabapentin that was recently prescribed to her for insomnia. She has done this and again has not had any improvement in her symptoms. Patient reports she has had associated abdominal pain and nausea. She has had a very poor appetite and has lost about 5 pounds in the past 1 month. She reports that she has continued to drink about 8 glasses of water per day however her food intake has been decreased. Abdominal pain is located in epigastric region and seems to be worse after eating. No vomiting or diarrhea. No chest pain, palpitations, shortness of breath. She denies fevers and chills. No urinary symptoms. Labs today as an outpatient showed a creatinine 2.6 (prior baseline runs in the low 1's). In the ED, creatinine is 2.5, other labs are unremarkable. She was given IVF. Admission Exam Per Admitting Provider Constitutional: WD/WN, vitals as above Eyes: PERRL, conjunctivae normal, anicteric sclerae ENMT: external ear and nose normal, oropharynx normal Respiratory: normal respiratory effort, lungs clear to auscultation Cardiovascular: regular rate and regular rhythm Vessels: normal peripheral pulses Extremities: no edema Gastrointestinal: normal bowel sounds; abdomen not distended Percussion/Palpation: + abdomen tender (Mild epigastric) and abdomen soft; no hepatosplenomegaly Musculoskeletal: no cyanosis or clubbing, extremities motor strength 5/5 Skin: no rashes, warm and dry Neurologic: PERRL, EOMI, accommodation nl, no face palsy, no dysarthria Psychiatric: A+Ox3, euthymic affect Principal Diagnosis Acute kidney injury on Chronic kidney disease stage III Epigastric abdominal pain Diastolic dysfunction Atrial fibrillation Tachy-shantel syndrome Hypertension Hypomagnesemia Discharge Exam General- No acute distress Head- atraumatic Eyes- PERRL, EOMI, ENT- oropharynx clear Neck- supple, no JVD Lungs- clear to auscultation Heart- regular rhythm; no murmur Abdomen- normal bowel sounds, soft, nontender Extremities- no calf tenderness Neuro- alert, oriented x 3; PERRL, EOMI; no facial palsy; no dysarthria Skin- warm & dry Discharge Data Allergies Allergy/AdvReac Type Severity Reaction Status Date / Time latex Allergy Severe Rash Verified 03/24/19 11:11 Cephalosporins Allergy Intermediate HIVES Verified 03/24/19 11:11 Penicillins Allergy Intermediate HIVES Verified 03/24/19 11:11 cat dander Allergy Mild SHORTNESS Verified 03/24/19 11:11 OF BREATH grass pollen-perennial rye, Allergy Mild SHORTNESS Verified 03/24/19 11:11 standar OF BREATH mold Allergy Mild SHORTNESS Verified 03/24/19 11:11 OF BREATH lisinopril Allergy Unknown UNKNOWN Verified 03/24/19 11:11 Dust Allergy Mild SHORTNESS Uncoded 03/24/19 11:11 OF BREATH Consultations 03/22/19 20:36 ED Decision to Admit Stat 03/23/19 08:00 Consult Gastroenterology Routine 03/25/19 17:34 Consult Nephrology Routine Procedures Performed Operation Date: 03/24/19 08:30 Actual Procedures p Esophagogastroduodenoscopy - Eder Elam Ordered Studies 03/22/19 22:12 CT abd pelvis wo con Stat CT abd pelvis wo con CT DOSE: 255.51 mGy.cm HISTORY: Pain abd pain, ROSAURA TECHNIQUE: Multiaxial CT images of the abdomen and pelvis were performed without contrast. A dose lowering technique was utilized adhering to the principles of ALARA. COMPARISON STUDY: None. FINDINGS: Lung bases are clear. Liver spleen and pancreas are unremarkable. Several gallstones are present. Kidneys are negative for hydronephrosis. There is no significant nephrocalcinosis. The abdominal bowel pattern is nonobstructive. There are scattered colonic diverticuli. The appendix is normal. The low rectosigmoid is air distended. Bladder is midline. No free fluid within the pelvic cul-de-sac. IMPRESSION: 1. Air distention of the low rectosigmoid. 2. Scattered colonic diverticuli with no evidence for diverticulitis. 3. Several small gallstones. 4. Study is otherwise negative. The above report was generated using voice recognition software. It may contain grammatical, syntax or spelling errors. Electronically signed by: Chris Ford M.D. 03/22/2019 10:56 PM Dictated: 03/22/192252 Transcribed: 03/22/192252 Hospital Course (1) Epigastric abdominal pain: CT abd/pelvis showed no acute findings on GI consulted. EGD done was normal Continue PPI Acute kidney injury on hronic kidney disease stage III Creatinine on admission around 2.57, baseline creatinine around 1. Receiving IVF Creatinine today 2.1 Continue to hold Losartan and spironolactone on discharge Nephrology on board Ok from nephrology standpoint to discharge home Will avoid nephrotoxic agents Will check BMP within 1 week Diastolic dysfunction (Chronic) History of left ventricular diastolic heart failure. Will monitor closely for for fluid overload Spironolactone on hold due to elevate creatinine DC IV fluid Atrial fibrillation Tachy-shantel syndrome Went to Afib yesterday and spontaneous converted to NSR Continue digoxin, flecainide Apixaban resumed after the EGD Stable Hypertension (Chronic) BP has been fluctuates Losartan and spironolactone on hold due to ROSAURA Case discussed with nephrology recommended to hold BP med for now Monitor BP ad PCP can start on low dose amlodipine if BP uncontrol Intermittent asthma (Chronic) Stable. Hypothyroidism Continue levothyroxine. DVT prophylaxis. On Apixaban SCD's. Ambulate. Disposition Family Medicine follow-up with Dr. Benito. on 04/01 @ 11:05 AM Follow up with nephrology Dr. Tovar on 04/12 @ 1PM at the [facility] Check BMP within 1 week Total Time Total Time Spent Total Time Spent (In Minutes): 35 minutes Total Time Includes: Examination of the Patient, Discharge Planning, Medication Reconciliation, Communication With Other Providers and Other Discharge Plan Discharge Items Patient Disposition: Home - Self-Care Reason For Visit: ROSAURA Discharge Diagnosis: Acute kidney injury on hronic kidney disease stage III Epigastric abdominal pain Diastolic dysfunction Atrial fibrillation Tachy-shantel syndrome Hypertension Hypomagnesemia Discharge Goals: Decrease discomfort, Improve disease control and Improve function Activity: Resume your previous activity Activity Comment: As tolerated Non-emergency contact: Primary Care Provider and Glass Unloading Equipment Tender Call non-emergency contact if: you have any medication questions Follow-up/Referrals: Maia Benito DO [Primary Care Provider] - Diet: Heart Healthy Addtl Provider Instructions: Family Medicine follow-up with Dr. Benito. on 04/01 @ 11:05 AM Follow up with nephrology Dr. Tovar on 04/12 @ 1PM at the [facility] Check BMP within 1 week to monitor kidney function Continue monitor blood pressure and bring your blood pressure log at your next appointment with your physician Continue to hold losartan and spironolactone for now Prescriptions: Continued sennosides [senna] 8.6 mg Tablet 2 - 3 tab PO HS PRN (Reason: Constipation) RF: 0 cyanocobalamin (vitamin B-12) [Vitamin B-12] 100 mcg Tablet 100 mcg PO QPM RF: 0 trazodone 50 mg tablet 50 mg PO HS RF: 0 cetirizine 5 mg Tablet 5 mg PO DAILY PRN (Reason: ALLERGIES) RF: 0 levothyroxine 100 mcg tablet 100 mcg PO QAM RF: 0 flecainide 50 mg tablet 100 mg PO BID RF: 0 hydrocortisone 2.5 % cream 1 applic topical TID PRN (Reason: AFFECTED AREAS) RF: 0 montelukast 10 mg tablet 10 mg PO QPM PRN (Reason: ALLERGIES) RF: 0 pravastatin 20 mg tablet 20 mg PO HS RF: 0 digoxin 125 mcg tablet 125 mcg PO MOWEFR RF: 0 albuterol sulfate 90 mcg/actuation HFA aerosol inhaler 2 puff Inhalation QID PRN (Reason: Shortness Of Breath) RF: 0 biotin 2,500 mcg Capsule 5,000 mcg PO Q2D RF: 0 Centrum 18-400 mg-mcg Tablet 1 tab PO QPM RF: 0 alcaftadine 0.25 % drops 1 drp OPB DAILY PRN (Reason: PRN) RF: 0 apixaban 2.5 mg tablet 2.5 mg PO BID RF: 0 metronidazole [MetroCream] 0.75 % cream 1 applic topical BID PRN (Reason: ROSACEA) RF: 0 omeprazole 20 mg capsule,delayed release(DR/EC) 20 mg PO QAM RF: 0 azelastine 137 mcg (0.1 %) aerosol,spray 1 spray intranasal BID PRN (Reason: Nasal Congestion) RF: 0 Restasis 0.05 % dropperette 1 drp OPB Q12 RF: 0 Caltrate 600 plus D 600 mg (1,500 mg)-800 unit Tablet,Chewable 2 tab PO DAILY RF: 0 Discontinued spironolactone 25 mg tablet 25 mg PO QAM RF: 0 losartan 100 mg tablet 50 mg PO QAM RF: 0 Stand-Alone Forms: [facility] Discharge Orders: Discharge Order (Routine); Ordered 03/26/19 Ordered By: Hai Disla Admission Data Admit Date/Time: 03/22/19 21:16 Attending Provider: Hai Disla Admit Provider: Brice Mortensen Primary Care Provider: Maia Benito Other Providers: Brice Mortensen ; Eder Elam ; Gerardo Tovar Service: Telemetry Medical Other Interventions: Discharge Summary Assessment (RN) Last Done: 03/26/19 12:43 DC Date/Time DO NOT enter until pt leaves facility: 03/26/19 14:03
== END 2019-03-26 14:03 | disposition home or self-care (01) | DRG 683 ==
LOC: ED 17:52 → SUATTDRO 21:16 → 2N 21:16

== ENCOUNTER 2021-10-12 05:06 | Observation (INO) ==
--- NOTE | 2021-09-17 18:03 | PAT Medication Instructions ---
Medication Instructions Date of Service September 17, 2021 Home Medications albuterol sulfate 90 mcg/actuation aerosol inhaler 2 puff INHALATION QID PRN alcaftadine 0.25 % eye drops 1 drp OPB DAILY PRN apixaban 2.5 mg tablet 2.5 mg PO BID cetirizine 5 mg tablet 5 mg PO DAILY PRN digoxin 125 mcg (0.125 mg) tablet 125 mcg PO 3XWK flecainide 50 mg tablet 100 mg PO AMPM levothyroxine 100 mcg tablet 100 mcg PO QAM pravastatin 20 mg tablet 20 mg PO HS azelastine 137 mcg (0.1 %) nasal spray aerosol 1 spray INTRANASAL BID PRN cyclosporine 0.05 % eye drops in a dropperette (Restasis) 1 drp OPB QAM amlodipine 5 mg tablet 5 mg PO QAM allopurinol 300 mg tablet 150 mg PO QAM diclofenac sodium 1 % topical gel 2 g TOPICAL QID montelukast 10 mg tablet 10 mg PO DAILY PRN nitroglycerin 0.4 mg sublingual tablet 0.4 mg SUBLINGUAL Q5M PRN vit C 250 mg-vit E 90 mg-zinc 40 mg-copper 1 [id number] capsule (PreserVision AREDS-2) 1 tab PO BID acetaminophen 650 mg tablet,extended release 1,300 mg PO Q12H PRN cholecalciferol (vitamin D3) 125 mcg (5,000 unit) tablet (Vitamin D3) 125 mcg PO QPM cyanocobalamin (vitamin B-12) 1,000 mcg tablet 1,000 mcg PO QPM eszopiclone 1 mg tablet 1.5 mg PO HS PRN gabapentin 100 mg capsule 300 mg PO QPM fluocinolone acetonide oil 0.01 % ear drops 4 drp OTIC (EAR) BID PRN Continue as directed alcaftadine 0.25 % eye drops 1 drp OPB DAILY PRN (if needed) digoxin 125 mcg (0.125 mg) tablet 125 mcg PO 3XWK nitroglycerin 0.4 mg sublingual tablet 0.4 mg SUBLINGUAL Q5M PRN (if needed) ASK your surgeon for instructions diclofenac sodium 1 % topical gel 2 g TOPICAL QID ASK your prescriber and surgeon apixaban 2.5 mg tablet 2.5 mg PO BID (must be off Eliquis 72 hours in order to get spinal anesthesia) STOP taking 2 weeks before surgery vit C 250 mg-vit E 90 mg-zinc 40 mg-copper 1 [id number] capsule (PreserVision AREDS-2) 1 tab PO BID DO NOT take the morning of surgery cetirizine 5 mg tablet 5 mg PO DAILY PRN montelukast 10 mg tablet 10 mg PO DAILY PRN Take morning of surgery With a small sip of water, OTHERWISE NOTHING TO EAT OR DRINK AFTER MIDNIGHT: albuterol sulfate 90 mcg/actuation aerosol inhaler 2 puff INHALATION QID PRN (use if needed; please bring with you to hospital day of surgery if possible) flecainide 50 mg tablet 100 mg PO AMPM levothyroxine 100 mcg tablet 100 mcg PO QAM azelastine 137 mcg (0.1 %) nasal spray aerosol 1 spray INTRANASAL BID PRN (if needed) cyclosporine 0.05 % eye drops in a dropperette (Restasis) 1 drp OPB QAM amlodipine 5 mg tablet 5 mg PO QAM allopurinol 300 mg tablet 150 mg PO QAM acetaminophen 650 mg tablet,extended release 1,300 mg PO Q12H PRN (okay to take up to 4 hours prior to surgery if needed) fluocinolone acetonide oil 0.01 % ear drops 4 drp OTIC (EAR) BID PRN (if needed) Take evening before surgery albuterol sulfate 90 mcg/actuation aerosol inhaler 2 puff INHALATION QID PRN (if needed) cetirizine 5 mg tablet 5 mg PO DAILY PRN (if needed) flecainide 50 mg tablet 100 mg PO AMPM pravastatin 20 mg tablet 20 mg PO HS azelastine 137 mcg (0.1 %) nasal spray aerosol 1 spray INTRANASAL BID PRN (if needed) montelukast 10 mg tablet 10 mg PO DAILY PRN (if needed) acetaminophen 650 mg tablet,extended release 1,300 mg PO Q12H PRN (if needed) cholecalciferol (vitamin D3) 125 mcg (5,000 unit) tablet (Vitamin D3) 125 mcg PO QPM cyanocobalamin (vitamin B-12) 1,000 mcg tablet 1,000 mcg PO QPM eszopiclone 1 mg tablet 1.5 mg PO HS PRN (if needed) gabapentin 100 mg capsule 300 mg PO QPM fluocinolone acetonide oil 0.01 % ear drops 4 drp OTIC (EAR) BID PRN (if needed) Other Notes If you have any questions please call us at [phone] or [phone] or [phone] or [phone]
--- NOTE | 2021-09-19 13:15 | Anesthesiology Consultation ---
Date of Service September 19, 2021 Assessment & Plan (1) Encounter for pre-operative examination: Chart Review Chart Review: Acceptable Risk for Surgery (pending cardio clearance scheduled 09/25 and preop Covid testing results ) and Patient seen in Pre Admission Testing -Awaiting cardio clearance scheduled 09/25/21 -Due to age and comorbidities- patient is NOT a Same Day Joint candidate Per PAT appt on 09/19/21, patient denies any recent travel or large group activities. No known Covid positive exposures or Covid related symptoms. No known Covid infection in the past 90 days. Pt is fully vaccinated for Covid. Preop Covid testing scheduled 10/10/21 = will await results. Educated on importance of self quarantining, social distancing and wearing mask in public for the patient one week prior to surgery and after Covid testing done Teaching & Discussion Pre-Anesthesia Teaching/Discussion Notes: Instructed NPO after midnight before surgery,except medications with 15 cc of water. Medication instructions provided according to the PAT guidelines. History Surgery Operation Date: 10/12/21 07:00 Proposed Procedures p Left Anterior Total Hip Arthroplasty with Excision of Lipoma - Primitivo Hernandez, DO Height/Weight Height: 5 ft Weight: 52.617 kg Allergies Allergy/AdvReac Type Severity Reaction Status Date / Time lisinopril Allergy Severe SHORT OF Verified 09/14/21 11:24 BREATH/HARD TIME BREATHING Cephalosporins Allergy Intermediate HIVES Verified 09/14/21 11:27 latex Allergy Intermediate Rash Verified 09/14/21 11:27 Penicillins Allergy Intermediate HIVES Verified 09/14/21 11:27 bacitracin Allergy Mild Rash Verified 09/14/21 11:27 [From Neosporin ([id number])] cat dander Allergy Mild SHORTNESS Verified 09/14/21 11:27 OF BREATH grass pollen-perennial rye, Allergy Mild SHORTNESS Verified 09/14/21 11:27 standar OF BREATH mold Allergy Mild SHORTNESS Verified 09/14/21 11:27 OF BREATH neomycin Allergy Mild Rash Verified 09/14/21 11:27 [From Neosporin ([id number])] polymyxin B Allergy Mild Rash Verified 09/14/21 11:27 [From Neosporin ([id number])] Dust Allergy Mild SHORTNESS Uncoded 09/14/21 11:27 OF BREATH Medications Home Medications Medication Instructions Recorded Confirmed Last Taken albuterol sulfate 90 mcg/actuation 2 puff INHALATION QID PRN 07/30/18 09/14/21 06/15/19 aerosol inhaler alcaftadine 0.25 % eye drops 1 drp OPB DAILY PRN 07/30/18 09/14/21 Unknown apixaban 2.5 mg tablet 2.5 mg PO BID 07/30/18 09/14/21 03/31/21 cetirizine 5 mg tablet 5 mg PO DAILY PRN 07/30/18 09/14/21 06/10/19 08:00 digoxin 125 mcg (0.125 mg) tablet 125 mcg PO 3XWK 07/30/18 09/14/21 03/30/21 flecainide 50 mg tablet 100 mg PO AMPM 07/30/18 09/14/21 03/31/21 levothyroxine 100 mcg tablet 100 mcg PO QAM 07/30/18 09/14/21 03/31/21 pravastatin 20 mg tablet 20 mg PO HS 07/30/18 09/14/21 03/30/21 azelastine 137 mcg (0.1 %) nasal 1 spray INTRANASAL BID PRN 03/22/19 09/14/21 Unknown spray aerosol cyclosporine 0.05 % eye drops in a 1 drp OPB QAM 03/22/19 09/14/21 03/31/21 dropperette (Restasis) amlodipine 5 mg tablet 5 mg PO QPM 05/17/19 09/19/21 03/31/21 allopurinol 300 mg tablet 150 mg PO QAM 01/31/21 09/14/21 03/31/21 diclofenac sodium 1 % topical gel 2 g TOPICAL QID 01/31/21 09/14/21 03/31/21 montelukast 10 mg tablet 10 mg PO DAILY PRN 01/31/21 09/14/21 03/31/21 nitroglycerin 0.4 mg sublingual 0.4 mg SUBLINGUAL Q5M PRN 01/31/21 09/14/21 Unknown tablet vit C 250 mg-vit E 90 mg-zinc 40 1 tab PO BID 01/31/21 09/14/21 03/31/21 mg-copper 1 [id number] capsule (PreserVision AREDS-2) acetaminophen 650 mg 1,300 mg PO Q12H PRN 03/09/21 09/14/21 Unknown tablet,extended release cholecalciferol (vitamin D3) 125 125 mcg PO QPM 03/09/21 09/14/21 03/31/21 mcg (5,000 unit) tablet (Vitamin D3) cyanocobalamin (vitamin B-12) 1,000 mcg PO QPM 03/09/21 09/14/21 03/31/21 1,000 mcg tablet eszopiclone 1 mg tablet 1.5 mg PO HS PRN 03/22/21 09/14/21 Unknown gabapentin 100 mg capsule 300 mg PO QPM 03/22/21 09/14/21 03/31/21 fluocinolone acetonide oil 0.01 % 4 drp OTIC (EAR) BID PRN 09/14/21 09/14/21 Unknown ear drops hydrochlorothiazide 12.5 mg capsule 12.5 mg PO QAM 09/19/21 09/19/21 Unknown Past Medical History Medical History Asthma Well controlled and stable Atrial fibrillation Paroxysmal- REASON FOR ELIQUIS Cancer 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 CKD (chronic kidney disease), stage III F/U [facility] [place] GERD (gastroesophageal reflux disease) Constant nausea - no significant reflux or heartburn Hearing deficit Hx of gout No recent issues Hyperlipidemia Hypertension Fluctuating- working with cardio for better control Hypothyroidism Macular degeneration RECIEVED INJECTIONS IN LEFT EYE JAKE (obstructive sleep apnea) NO DEVICE REQUIRED Sleeps on side Osteoarthritis Pre-diabetes DIET CONTROLLED Restless leg syndrome Spinal stenosis Lumbar area Tachy-shantel syndrome Medtronic pacemaker placed 08/25/12 Last checked 06/2021 Temporomandibular joint disorder LEFT SIDE CLICKS NO LOCKING 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 patient reports having difficulty with her asthma and seemed to have a flare up with some shortness of breathe and chest heaviness & wheezing with ambulating. -NO ISSUES SINCE History of cataract surgery R/L History of cholecystectomy History of colonoscopy History of esophagogastroduodenoscopy (EGD) History of resection of meningioma 2010 History of tonsillectomy Hx of knee surgery ATTEMPTED FOREIGN BODY REMOVED (RT) "STILL IN KNEE" S/P endoscopy Endoscopic Ultrasonography 05/21/19 under [place] Grade 2 view with Mac 3 blade S/P placement of cardiac pacemaker BRADYCARDIA --- [employer] -- NO MRI'S INSERTED AT [facility] FOLLOW WITH DR ALTHEA GROVES S/P DIANE-BSO [place] teeth removed Past Anesthesia History No Hx of Anesthesia Complications and No Family Hx of Anesthesia Complications History of PONV No Hx of PONV and No Hx of Motion Sickness Social History Smoking Status: Never smoker Do You Dip or Chew Tobacco: No Hx Alcohol Use: Yes Alcohol type: beer and wine alcohol intake frequency: a few times a month Hx Substance Use: No substance use type: does not use Review of Systems Patient denies chest pain, shortness of breath, dyspnea on exertion, cough, wheezing, palpitations. No hx of seizures, stroke, [place]. No hx of blood clots or blood transfusions Physical Exam Vital Signs VITALS BP 121/69 P 72 TEMP 98.1 SP02 97% RESP 16 Constitutional no acute distress ENMT Mouth: no TMJ clicking Thyromental Distance: < 3.5 Finger Breadths (3.0) Mallampati Class: III Crowns to molars Neck neck extension not limited Respiratory normal respiratory effort; no respiratory distress Auscultation: lungs clear to auscultation bilaterally; no wheezes Cardiovascular Rate/Rhythm: regular rate and regular rhythm Heart Sounds: no murmur Vessels: no carotid bruit Musculoskeletal Spine: no pain with cervical ROM Extremities: extremities normal to inspection Psychiatric Orientation: alert Lab Results Anesthesia Preop Results Results Anesthesia Widget: WBC 7.66 K/uL (4.8-10.8) 09/19/21 Hgb 13.9 g/dL (12.0-16.0) 09/19/21 Hct 41.7 % (37-47) 09/19/21 Plt 220 K/uL (130-400) 09/19/21 PT 10.1 Seconds (9.0-12.0) 09/19/21 PTT 27.9 Seconds (21.0-31.0) 09/19/21 INR 1.0 (0.9-1.1) 09/19/21 Blood Type A Positive 09/19/21 Antibody Screen NEGATIVE 09/19/21 Testing Laboratory Results 09/17/21= SODIUM: 141 POTASSIUM: 3.3 CHLORIDE: 99 CO2: 25 BUN: 21 CREATININE: 1.1 GLUCOSE: 136 Electrocardiogram Date: 09/20/21 SR with 1st degree AVB at 72bpm. LAD. Incomplete RBBB. Nonspecific ST and T wave abnormality. When compared to EKG from Mar 31, 2021- criteria for inferior infarct are no longer present, ST less depressed in lateral leads, nonspecific T wave abnor mality improved in anterior leads, QT has shortened per cardio. Chest X-Ray Date: 04/01/21 Findings: + NAD and + cardiomegaly (mild/unchanged ) 1 view CXR Dual lead left subclavian pacemaker in place Echocardiogram Date: 03/30/21 EF: 60-64% LV Function: normal RWMA: + none Other Findings: + diastolic dysfunction (Grade 1); no LVH LV cavity size is normal. Pacemaker wire noted in right ventricle. Left atrium is mildly enlarged. Mild MR. Mild TR. Stress Test Date: 03/30/21 Type: nuclear Gated SPECT imaging reveals normal myocardial thickening and wall motion. LVEF was calculated to be >65%. Lexiscan nuclear cardiac stress test negative for ischemia. Other Testing Pacemaker check 07/02/2021 = Medtronic pacemaker. Implant date 08/25/2012. Atrial paced 8.5%. RV paced 0.4%. Battery life: 2.76 V with an estimated longevity of 5.5 years. Pacemaker mode: AAI <-->DDD. Patient: Normal dual- chamber pacemaker function. Adequate battery reserve. Follow-up in 3 months.
--- NOTE | 2021-10-11 07:23 | History & Physical Report ---
Date of Service October 11, 2021 Assessment & Plan (1) Osteoarthritis of left hip: We will proceed with a left total hip arthroplasty and lipoma excision. Postoperatively she will be started on Eliquis for DVT prophylaxis and kept overnight in the hospital for postoperative medical management. She plans to use [facility] for physical therapy upon discharge. History of Present Illness Chief Complaint: Osteoarthritis of the left hip. Primary Care Provider: Maia Benito DO Snyder is a pleasant 81-year-old female who is been doing with chronic worsening left hip and groin pain. X-rays and clinical examination been diagnostic for advanced arthritis of the left hip. She also has a large lipoma. After failing extensive conservative treatment, she has elected proceed with a left total hip arthroplasty with lipoma excision. Allergies Allergy/AdvReac Type Severity Reaction Status Date / Time lisinopril Allergy Severe SHORT OF Verified 09/26/21 14:39 BREATH/HARD TIME BREATHING Cephalosporins Allergy Intermediate HIVES Verified 09/26/21 14:39 latex Allergy Intermediate Rash Verified 09/26/21 14:39 Penicillins Allergy Intermediate HIVES Verified 09/26/21 14:39 bacitracin Allergy Mild Rash Verified 09/26/21 14:39 [From Neosporin ([id number])] cat dander Allergy Mild SHORTNESS Verified 09/26/21 14:39 OF BREATH grass pollen-perennial rye, Allergy Mild SHORTNESS Verified 09/26/21 14:39 standar OF BREATH mold Allergy Mild SHORTNESS Verified 09/26/21 14:39 OF BREATH neomycin Allergy Mild Rash Verified 09/26/21 14:39 [From Neosporin ([id number])] polymyxin B Allergy Mild Rash Verified 09/26/21 14:39 [From Neosporin ([id number])] Home Medications Medication Instructions Recorded Confirmed Type albuterol sulfate 90 mcg/actuation 2 puff INHALATION QID PRN 07/30/18 09/26/21 History aerosol inhaler alcaftadine 0.25 % eye drops 1 drp OPB DAILY PRN 07/30/18 09/26/21 History apixaban 2.5 mg tablet 2.5 mg PO BID 07/30/18 09/26/21 History cetirizine 5 mg tablet 5 mg PO DAILY PRN 07/30/18 09/26/21 History digoxin 125 mcg (0.125 mg) tablet 125 mcg PO 3XWK 07/30/18 09/26/21 History flecainide 50 mg tablet 100 mg PO AMPM 07/30/18 09/26/21 History levothyroxine 100 mcg tablet 100 mcg PO QAM 07/30/18 09/26/21 History pravastatin 20 mg tablet 20 mg PO HS 07/30/18 09/26/21 History azelastine 137 mcg (0.1 %) nasal 1 spray INTRANASAL BID PRN 03/22/19 09/26/21 History spray aerosol cyclosporine 0.05 % eye drops in a 1 drp OPB QAM 03/22/19 09/26/21 History dropperette (Restasis) amlodipine 5 mg tablet 5 mg PO QPM 05/17/19 09/26/21 History allopurinol 300 mg tablet 150 mg PO QAM 01/31/21 09/26/21 History diclofenac sodium 1 % topical gel 2 g TOPICAL QID 01/31/21 09/26/21 History montelukast 10 mg tablet 10 mg PO DAILY PRN 01/31/21 09/26/21 History nitroglycerin 0.4 mg sublingual 0.4 mg SUBLINGUAL Q5M PRN 01/31/21 09/26/21 History tablet vit C 250 mg-vit E 90 mg-zinc 40 1 tab PO BID 01/31/21 09/26/21 History mg-copper 1 [id number] capsule (PreserVision AREDS-2) acetaminophen 650 mg 1,300 mg PO Q12H PRN 03/09/21 09/26/21 History tablet,extended release cholecalciferol (vitamin D3) 125 125 mcg PO QPM 03/09/21 09/26/21 History mcg (5,000 unit) tablet (Vitamin D3) cyanocobalamin (vitamin B-12) 1,000 mcg PO QPM 03/09/21 09/26/21 History 1,000 mcg tablet eszopiclone 1 mg tablet 1.5 mg PO HS PRN 03/22/21 09/26/21 History gabapentin 100 mg capsule 300 mg PO QPM 03/22/21 09/26/21 History fluocinolone acetonide oil 0.01 % 4 drp OTIC (EAR) BID PRN 09/14/21 09/26/21 History ear drops hydrochlorothiazide 12.5 mg capsule 12.5 mg PO QAM 09/19/21 09/26/21 History losartan 25 mg tablet 25 mg PO QAM 10/08/21 10/08/21 History Past Med/Surg History Medical History Asthma Well controlled and stable Atrial fibrillation Paroxysmal- REASON FOR ELIQUIS Cancer 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 CKD (chronic kidney disease), stage III F/U [place] GERD (gastroesophageal reflux disease) Constant nausea - no significant reflux or heartburn Hearing deficit Hx of gout No recent issues Hyperlipidemia Hypertension Fluctuating- working with cardio for better control Hypothyroidism Macular degeneration RECIEVED INJECTIONS IN LEFT EYE JAKE (obstructive sleep apnea) NO DEVICE REQUIRED Sleeps on side Osteoarthritis Pre-diabetes DIET CONTROLLED Restless leg syndrome Spinal stenosis Lumbar area Tachy-shantel syndrome Medtronic pacemaker placed 08/25/12 Last checked 06/2021 Temporomandibular joint disorder LEFT SIDE CLICKS NO LOCKING 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 -NO ISSUES SINCE History of cataract surgery R/L History of cholecystectomy History of colonoscopy History of esophagogastroduodenoscopy (EGD) History of resection of meningioma 2010 History of tonsillectomy Hx of knee surgery ATTEMPTED FOREIGN BODY REMOVED (RT) "STILL IN KNEE" S/P endoscopy Endoscopic Ultrasonography 05/21/19 under [place] Grade 2 view with Mac 3 blade S/P placement of cardiac pacemaker BRADYCARDIA --- [employer] -- NO MRI'S INSERTED AT [facility] FOLLOW WITH DR ALTHEA GROVES S/P DIANE-BSO [place] teeth removed Family History Mother Hypertension Father Prostate cancer Other No family history of adverse response to anesthesia No family history of bleeding disorder Social History Smoking Status: Never smoker Second Hand Exposure: Yes (DAUGHTER SMOKES); Hx Alcohol Use: Yes Alcohol type: beer and wine Alcohol Intake Frequency Comment: 1 glass of wine/day Hx Substance Use: No Preferred Language: [place]an Communication Ability: Effective Cold Storage Supervisor Required: No Beliefs That Will Affect Care: Church Church Beliefs: PRESYBETERIAN Current Living Situation: Alone Current Living Situation Comment: SPOUSE RECENTLY OF PANCREATIC CANCER 08/2021 current occupational status: retired current occupation: Retired Professor Feels Safe at Home: Yes Assistive Devices: Cane and Hearing Aid - Bilateral Review of Systems All systems reviewed & are unremarkable except as noted in HPI & below. Physical Exam On physical examination of the left hip, she ambulates with a cane. She has an antalgic gait. She has pain with range of motion of her hip. She has a large mass the size of grapefruit on the lateral aspect of her left hip. Constitutional WD/WN, vitals as above Eyes PERRL, conjunctivae normal, anicteric sclerae ENMT external ear and nose normal, oropharynx normal Neck trachea midline, no thyromegaly Respiratory normal respiratory effort Cardiovascular RRR, no murmur, no edema Gastrointestinal (Abdomen) normal bowel sounds, soft, nontender, no hepatosplenomegaly Psychiatric A+Ox3, euthymic affect Results & Data Results & Data Laboratory Results . Diagnostic Findings X-rays of the left hip show advanced osteoarthritis with joint space narrowing, osteophyte formation, and [id number]-[id number] articulation. PG Care Time/CCT Total # of Minutes Spent Total Time Spent with Patient: Total time spent is greater than 50% in coordination of care (as documented) at patient's floor/unit and/or counseling patient: Coding Level of Care Code None Diagnoses Osteoarthritis of left hip M16.12
[2021-10-12] MEDS ORDERED: Ketorolac (*for OR use only*) 30 MG, dexAMETHasone 4 MG, KETAMINE HCL (**OR use only) 1... INFIL SCH (06:00)
[2021-10-12] MEDS ORDERED: TRANEXAMIC ACID 1,000 MG **IV Intra-op IV SCH (06:00)
[2021-10-12] MEDS ORDERED: ACETAMINOPHEN 500 MG TAB PO SCH (06:00)
[2021-10-12] MEDS ORDERED: LR 60ML/HR IV SCH (06:00)
[2021-10-12] MEDS ORDERED: GABAPENTIN 300 MG CAP PO SCH ×2 (06:00→21:00)
[2021-10-12] MEDS ORDERED: TRANEXAMIC ACID 1,000 MG **IV Pre-op IV SCH (06:00)
[2021-10-12] MEDS ORDERED: LR 500ML BOLUS, THEN 15ML/HR IV SCH (06:00)
[2021-10-12] MEDS ORDERED: dexAMETHasone 4 MG TAB PO SCH (06:00)
[2021-10-12] MEDS ORDERED: FAMOTIDINE 20 MG TAB PO SCH (06:00)
[2021-10-12] MEDS ORDERED: MIDAZOLAM HCL 1 MG/ML 2ML VIAL ONE (06:33)
[2021-10-12] MEDS ORDERED: LIDOCAINE 2% 2 ML VIAL/AMP(20MG/ML) INFIL ONE (06:33)
[2021-10-12] MEDS ORDERED: PROPOFOL IV EMULSION 10 MG/ML 20 ML VIAL IV ONE (06:33)
[2021-10-12] MEDS ORDERED: ONDANSETRON INJ 2 MG/ML 2 ML VIAL IV PRN ×2 (06:40→09:35)
[2021-10-12] MEDS ORDERED: fentaNYL citrate 100 MCG/2 ML VIAL IV PRN (06:40)
[2021-10-12] MEDS ORDERED: ATROPINE SULFATE 0.1 MG/ML 10ML SYR IV PRN (06:40)
[2021-10-12] MEDS ORDERED: ePHEDrine sulfate 50 MG/ML AMP IV PRN (06:40)
[2021-10-12] MEDS ORDERED: ceFAZolin 2000MG 2,000 MG/15 ML SYR IV ONE (06:40)
[2021-10-12] MEDS ORDERED: BUPIVACAINE 0.5 % 5 MG/1 ML PF 10ML VIAL ONE (06:43)
[2021-10-12] MEDS ORDERED: ORTHO JOINT ANESTHETIC ONE (06:43)
[2021-10-12] MEDS ORDERED: Nursing to Pharmacy Communication SCH (06:45)
--- NOTE | 2021-10-12 06:47 | History & Physical Bridge Note ---
Date of Service October 12, 2021 History & Physical Bridge Note I have examined the patient, reviewed the History & Physical and in the interval since the performance of the History & Physical I have noted the following changes of clinical significance: no changes noted
[2021-10-12] MEDS ORDERED: TRANEXAMIC ACID 100 MG/ML 10 ML VIAL IV SCH (07:00)
--- NOTE | 2021-10-12 08:20 | Operative Report ---
PG Post Operative Report Pre & Post Diagnosis Operation Date: 10/12/21 07:00 Pre-Op Diagnosis: Osteoarthritis of Left Hip, Lipoma Left Hip Post-Op Diagnosis: Osteoarthritis of Left Hip, Lipoma Left Hip I identified the patient and participated in the time-out.: Yes Procedure Operation Date: 10/12/21 07:00 Actual Procedures p Left Anterior Total Hip Arthroplasty with Excision of Lipoma as a distinct and separate procedure (modifier 59) - Primitivo Hernandez DO Surgeon Primitivo Hernandez, [employer] Primitivo Meng PAC Estimated Blood Loss 150 Findings Consistent with Post-Op Diagnosis Specimens Left femoral head, left hip lipoma Complications none Disposition Disposition: Recovery Room Indications Lillian is a pleasant 81-year-old female who is been doing with chronic worsening left hip and groin pain. X-rays and clinical examination were diagnostic of adv anced osteoarthritis of the left hip. After failing conservative treatment, she elected proceed with a left anterior total hip arthroplasty. She also had a CT scan of her left hip which was suggestive of a lipoma. She wanted that removed as well. Description of Procedure Implants used I used a Zimmer[employer]omet total hip arthroplasty system with a size 1 high offset Avenir Complete stem, a 46 mm G7 cup with a 25mm screw, an E1 polyethylene liner, a 32 mm ceramic head with a 3.5 neck. Lillian arrived at the hospital for the above procedure. She was seen in the preoperative holding area and the operative extremity was identified and signed. She was given a spinal anesthetic, a preoperative antibiotic, and TXA. She was then taken back to the operating room and laid on the table in the supine position. She was given basic sedation. The operative leg was secured to a Puristst leg positioner. The hip was then prepped and draped in sterile fashion. A timeout was done and the patient and the operative extremity was properly identified. An anterior approach was used. Dissection was taken down through the fascia and the tensor muscle belly was retracted laterally and the rectus was retracted medially. The circumflex vessels were identified and ligated. The capsule was then incised and tagged for later repair. The femoral neck was then cut and the femoral head was removed. The acetabulum was exposed. Time was spent doing a complete circumferential labral release. Sequential reaming of the acetabulum up to a size 45 reamer was done. Final reamings were done under fluoroscopy to ensure appropriate version. A Biomet 46mm G7 cup was then impacted into place. A single 25 mm screw was placed. The E1 polyethylene liner was then snapped into place. Surrounding soft tissues were then injected with 100 cc of an orthopedic pain control cocktail. The proximal femur was then exposed. Sequential broaching up to a size 1 broach was done. Off that broach a size 32 head with a -3.5 neck was trialed. The hip was reduced and fluoroscopic images showed anatomic alignment of the implants in acceptable length. The broach was removed. The final size 1 high offset Avenir Complete stem was then impacted into place. A ceramic 32mm head with a -3.5 neck was then impacted onto the stem and the hip was reduced. Final fluoroscopic images showed anatomic alignment of the hip. The capsule was then closed with #1 Vicryl suture. A dilute betadyne lavage was then done for 3 minutes. The joint was then irrigated with normal saline solution. Attention was then turned to the lipoma. I was able to access the lipoma from my incision. Dissection was taken down around the fat layer between the fascia and the subcutaneous layer. I attempted to do a marginal excision. It was a little difficult to tell exactly the planes between the normal fat in the possible pathologic fat. I was able to remove the large mass of fat that was bothering her. It measured to be 14 cm x 10 cm on the back table. It was sent to pathology. This completed a marginal excision of a large lipoma. The fascia was closed with #1 PDS suture. Skin was closed with 2-0 Vicryl, tristian, and a Silverlon dressing. She was then transferred to a hospital bed and taken to the post anesthesia care unit in stable condition. She tolerated the procedure well. Primitivo Meng PA-C, was present for the entire procedure. He was critical for patient positioning, prepping, draping, retraction exposure, wound closure and application of sterile dressing. I attest to the content of the Intraoperative Record and any orders documented therein. Any exceptions are noted below.
--- NOTE | 2021-10-12 09:23 | XRay Report ---
XR hip 1V LT w pelvis HISTORY: 81 years-old Female IN PACU - A/P PELVIS and LATERAL HIP [hip total joint arthroplasty COMPARISON: Fluoroscopic images of the left hip of same day TECHNIQUE: AP view of the pelvis with crosstable lateral view of the left hip FINDINGS: Left hip total joint arthroplasty. There is satisfactory alignment without acute fracture. Lateral sk in tristian are present along with expected postoperative soft tissue swelling with deep tissue air. 1 .4 cm bone fragment projects superior lateral to the left hip. Mild to moderate right hip osteoarthri tis. IMPRESSION: Satisfactory alignment of the left hip total joint arthroplasty. ACT 112: Negative or not required by law. The above report was generated using voice recognition software. It may contain grammatical, syntax o r spelling errors. Electronically signed by: Paramjit Ochoa M.D. 10/12/2021 9:21 AM
[2021-10-12] MEDS ORDERED: NALOXONE HCL 0.4 MG/1 ML VIAL/CARP IV PRN (09:35)
[2021-10-12] MEDS ORDERED: bisacodyL 10 MG SUPP PR PRN (09:35)
[2021-10-12] MEDS ORDERED: MONTELUKAST SODIUM 10 MG TABLET PO PRN (09:35)
[2021-10-12] MEDS ORDERED: ESZOPICLONE 1 MG TAB PO PRN (09:35)
[2021-10-12] MEDS ORDERED: MAGNESIUM HYDROXIDE SUSP 30 ML UDC PO PRN (09:35)
[2021-10-12] MEDS ORDERED: SODIUM CHLORIDE 0.9% 1000ML 1,000 ML IV SCH (09:35)
[2021-10-12] MEDS ORDERED: NITROGLYCERIN SL 0.4 MG/TAB TAB SL PRN (09:35)
[2021-10-12] MEDS ORDERED: ALCAFTADINE OPB PRN (09:35)
[2021-10-12] MEDS ORDERED: METOCLOPRAMIDE HCL INJ 5 MG/ML 2 ML VIAL IV PRN (09:35)
[2021-10-12] MEDS ORDERED: HYDROmorphone INJ 0.5 MG/0.5 ML SYR IV PRN (09:35)
[2021-10-12] MEDS ORDERED: ALBUTEROL HFA 8 GM INHALER INH PRN (09:35)
[2021-10-12] MEDS ORDERED: AZELASTINE HCL 0.1% NASAL 200 SPRAYS/27,400 MCG BTL NAE PRN (09:35)
[2021-10-12] MEDS ORDERED: CETIRIZINE HCL 10 MG TABLET PO PRN (09:41)
--- NOTE | 2021-10-12 09:49 | Anesthesiology Progress Note ---
Date of Service October 12, 2021 Anesthesia Post Procedure Vital Signs Vital Signs: Temp Pulse Pulse Resp BP Pulse Ox 10/12/21 09:15 97.9 F 60 14 126/58 L 97 10/12/21 09:05 60 13 125/79 100 10/12/21 08:55 60 16 127/67 100 10/12/21 08:45 60 17 123/66 100 10/12/21 08:38 98.2 F 60 12 107/65 99 10/12/21 05:47 98.4 F 62 18 129/63 96 Transfer of Care Handoff Completed per policy Notes Mental Status: alert / awake / arousable and participated in evaluation Patient Amnestic to Procedure: Yes Nausea / Vomiting: adequately controlled Pain: adequately controlled Airway Patency, RR, SpO2: stable & adequate BP & HR: stable & adequate Hydration State: stable & adequate Neuraxial Anesthesia: was administered and sensory block is resolving Anesthetic Complications: no major complications apparent and Pt Satisfied with anesthetic care
[2021-10-12] MEDS: FLECAINIDE ACETATE 100 MG TABLET PO SCH ×2 (10:21→20:04)
[2021-10-12] MEDS: MULTIVITAMIN TAB PO SCH (10:21)
[2021-10-12] MEDS: DOCUSATE SODIUM 100 MG CAP PO SCH ×2 (10:21→20:04)
[2021-10-12] MEDS: DICLOFENAC SOD 1% GEL 100 GM TUBE EXT SCH ×4 (10:22→20:04)
[2021-10-12] MEDS: LEVOTHYROXINE SODIUM 100 MCG TABLET PO SCH (10:22)
[2021-10-12] MEDS: LOSARTAN POTASSIUM 25 MG TAB PO SCH (10:22)
[2021-10-12] MEDS: allopurinoL 300 MG TAB PO SCH (10:22)
[2021-10-12] MEDS ORDERED: ARTIFICIAL TEARS OP PRN (11:07)
--- NOTE | 2021-10-12 12:01 | Fluoroscopy Report ---
FL hip LT 1V HISTORY: 81 years-old Female LT left hip total joint arthroplasty COMPARISON: CT left hip 02/07/2021 TECHNIQUE: 2 spot fluoroscopic images of the left hip were obtained utilizing 25.3 seconds fluoroscop y time FINDINGS: Left hip total joint arthroplasty demonstrates satisfactory alignment. Small linear bone fragment pro jects superolateral to the left hip. Extensive postoperative soft tissue swelling with deep tissue ai r. No acute fracture or unexpected opaque foreign body. IMPRESSION: Left hip total joint arthroplasty with expected postoperative changes. ACT 112: Negative or not required by law. The above report was generated using voice recognition software. It may contain grammatical, syntax o r spelling errors. Electronically signed by: Paramjit Ochoa M.D. 10/12/2021 11:59 AM
[2021-10-12] MEDS: ACETAMINOPHEN 500 MG TAB PO SCH ×2 (13:43→21:29)
[2021-10-12] MEDS: ceFAZolin 2000MG 2,000 MG/15 ML SYR IV SCH ×2 (13:44→22:34)
[2021-10-12] MEDS: oxyCODONE HCL IR 5 MG TAB (IMMEDIATE RELEASE) PO PRN (16:15)
[2021-10-12] MEDS: CEROVITE ADV FORMULA TAB PO SCH ×2 (20:04→20:10)
[2021-10-12] MEDS ORDERED: SENNA 8.6 MG TAB PO SCH (21:00)
[2021-10-12] MEDS ORDERED: DIGOXIN 0.125 MG TAB PO SCH (21:00)
[2021-10-12] MEDS ORDERED: amLODIPine BESYLATE 5 MG TAB PO SCH (21:00)
[2021-10-12] MEDS ORDERED: PRAVASTATIN SOD 20 MG TAB PO SCH (21:00)
[2021-10-13] MEDS: oxyCODONE HCL IR 5 MG TAB (IMMEDIATE RELEASE) PO PRN ×2 (01:54→09:32)
[2021-10-13] MEDS: ACETAMINOPHEN 500 MG TAB PO SCH ×2 (06:14→13:25)
[2021-10-13] MEDS: LEVOTHYROXINE SODIUM 100 MCG TABLET PO SCH (06:14)
[2021-10-13] MEDS ORDERED: CALCIUM CARBONATE 500 MG CHEWABLE TAB ONE (07:46)
[2021-10-13] MEDS ORDERED: dexAMETHasone 4 MG TAB PO SCH (08:00)
[2021-10-13] MEDS: MULTIVITAMIN TAB PO SCH (08:57)
[2021-10-13] MEDS: LOSARTAN POTASSIUM 25 MG TAB PO SCH (08:57)
[2021-10-13] MEDS: CEROVITE ADV FORMULA TAB PO SCH (08:57)
[2021-10-13] MEDS: DICLOFENAC SOD 1% GEL 100 GM TUBE EXT SCH ×2 (08:57→12:24)
[2021-10-13] MEDS: allopurinoL 300 MG TAB PO SCH (08:57)
[2021-10-13] MEDS: FLECAINIDE ACETATE 100 MG TABLET PO SCH (08:57)
[2021-10-13] MEDS: DOCUSATE SODIUM 100 MG CAP PO SCH (08:57)
[2021-10-13] MEDS ORDERED: APIXABAN 2.5 MG TAB PO SCH (09:00)
--- NOTE | 2021-10-13 11:22 | Orthopedic Progress Note ---
Date of Service October 13, 2021 Assessment & Plan (1) Status post left hip replacement: Overall, she is doing very well. She will be seen by physical therapy today for ambulation and range of motion exercises. She is on Aspirin for DVT prophylaxis. We will plan discharge to rehab vs home either tomorrow or Friday. Lydia Snyder was seen and examined at bedside this morning. She is doing well. She has been ambulating in the hallways. Her pain is controlled. Review of Systems All systems reviewed & are unremarkable except as noted in HPI & below. Physical Exam The dressing is clean and dry. Her leg lengths are equal. She is nv intact . Results & Data Results & Data Laboratory Results . Diagnostic Findings . PG Care Time/CCT Total # of Minutes Spent Total Time Spent with Patient: Total time spent is greater than 50% in coordination of care (as documented) at patient's floor/unit and/or counseling patient: Coding Level of Care Code 88064 Post Operative Follow-Up Diagnoses Status post left hip replacement Z96.642
[2021-10-13] MEDS ORDERED: CALCIUM CARBONATE 500 MG CHEWABLE TAB PO ONE (14:36)
--- NOTE | 2021-10-14 07:51 | Discharge Summary ---
Date of Service October 14, 2021 Admission HPI (Per Admitting) Lillian is a pleasant 81-year-old female who is been doing with chronic worsening left hip and groin pain. X-rays and clinical examination been diagnostic for advanced arthritis of the left hip. She also has a large lipoma. After failing extensive conservative treatment, she has elected proceed with a left total hip arthroplasty with lipoma excision. Admission Exam (Per Admitting) On physical examination of the left hip, she ambulates with a cane. She has an antalgic gait. She has pain with range of motion of her hip. She has a large mass the size of grapefruit on the lateral aspect of her left hip. Principal Diagnosis Same as "Discharge Diagnosis" noted below under Discharge Instructions. Discharge Exam The dressing is clean and dry. Her leg lengths are equal. She is nv intact . Discharge Data Procedures Performed Operation Date: 10/12/21 07:00 Actual Procedures p Left Anterior Total Hip Arthroplasty with Excision of Lipoma(Left) - Primitivo Hernandez DO Ordered Studies 10/12/21 07:00 FL hip LT 1V Routine Hospital Course (1) Status post left hip replacement: On October 12, 2021 Lillian arrived at [facility] and underwent a left hip replacement without complication. She had a spinal anesthetic. Postoperatively she was started on aspirin for DVT prophylaxis and transferred to the general orthopedic floors. Her hospital course was uneventful. On postop day #1 her vital signs were stable and her pain was well controlled. She was able to participate well with physical therapy doing ambulation and range of motion exercises. She was then discharged home. She will follow with orthopedics in 2 weeks. PG Care Time/CCT Total # of Minutes Spent Total Time Spent with Patient: Total time spent is greater than 50% in coordination of care (as documented) at patient's floor/unit and/or counseling patient: Discharge Plan Discharge Items Patient Disposition: Home - Home Health Services Reason For Visit: DJD Left Hip Lipoma Left Hip Discharge Diagnosis: Left hip replacement Activity: As commented below Non-emergency contact: Surgeon Call non-emergency contact if: your wound has increased redness and your wound has increased drainage Follow-up/Referrals: Maia Benito DO [Primary Care Provider] - Diet: Regular Addtl Attending Provider Instructions: Activity and Therapy Recommendations: * If you are using [facility] then therapy will be provided at your home until they feel you have accomplished all of your goals. * If you are using [facility] then Physical Therapy will be provided until they feel you are ready to start Outpatient Physical Therapy. * If you are not using home therapy then Outpatient Physical Therapy should start about 3-5 days from your day of surgery. Therapy will last about 6-10 weeks * You were shown a series of exercises in the hospital. Do these exercises three times each day including the exercises you were shown in physical therapy. * Get up and walk several times each day.~ For the first four weeks, try not to stand or walk for more than one hour at a time. If you do stand or walk for more than one hour, you will not hurt anything, but your leg will likely swell.~~ * As you feel comfortable, you may change from the walker or crutches to a cane and~then to independent walking. Medications: * Narcotic You will likely be sent home from the hospital with a prescription for the narcotic pain medication that worked best throughout your stay. * Aspirin Most patients will be required to take Aspirin 81mg twice a day for 6 weeks after surgery. This is obtained [id number] and a prescription is not necessary. * Other medications may be prescribed for specific circumstances. If you have any questions, please call the office at . * Resume previous home medications unless otherwise instructed TEDs/Elastic Stockings: The white elastic stockings help limit swelling and prevent blood clots from forming in your legs. The more you wear them, the more they work. Wear them for six weeks. Dressing Care: Leave the Silverlon dressing in place for 7 days. After 7 days you may remove the dressing. If the incision is not draining then you may leave the tristian open to air. If there is a little bit of drainage or if the tristian are getting stuck on your clothing then cover the incision with a dry dressing. The tristian will be removed at your 2 week follow-up appointment. Showering: You may shower with the Silverlon dressing in place. Do not let the shower spray hit the dressing directly. Pat the Silverlon dressing dry. If the dressing becomes wet underneath, then simply remove the dressing. Keep the incision dry until you are 7 days out from the day of surgery. After 7 days you may remove the Silverlon dressing and shower with the tristian exposed. Let soapy water run over the tristian and pat them dry. Do not scrub or soak the incision. Things To Watch For: * Drainage from the incision site that occurs more than one week after your surgery. * Increased redness at the incision site. * Fever above 102 degrees Fahrenheit. * Unusual chest pain or shortness of breath. * Call [facility] at with any of the above problems Follow-Up Visit: Follow-up with Dr. Hernandez's PA (Primitivo Meng) 2-3 weeks after your day of surgery. He will remove your tristian and answer any questions. If you have any additional questions or concerns, Dr Hernandez is usually in the office at the same time and will be available An appointment was probably scheduled when you signed-up for surgery in the office. If you have any questions call Office Instructions: More detailed instructions as well as Frequently Asked Questions were provided in a folder by our office when you signed-up for surgery. Please review these instructions when you get home. If you have any further questions or concerns, please feel free to call the office at [phone] Pending Studies at Discharge: No Stand-Alone Forms: My [facility] [employer], Smoking Cessation Medications and DC Order Prescriptions: New oxycodone-acetaminophen 5-325 mg tablet 1 tab PO Q6H PRN (Reason: pain) Qty: 30 RF: 0 Continued allopurinol 300 mg tablet 150 mg PO QAM RF: 0 diclofenac sodium 1 % gel 2 g topical QID RF: 0 montelukast 10 mg tablet 10 mg PO DAILY PRN (Reason: Allergy Symptoms) RF: 0 nitroglycerin 0.4 mg tablet, sublingual 0.4 mg sublingual Q5M PRN (Reason: Chest Pain) RF: 0 PreserVision AREDS-2 250-90-40-1 mg capsule 1 tab PO BID RF: 0 cetirizine 5 mg Tablet 5 mg PO DAILY PRN (Reason: ALLERGIES) RF: 0 levothyroxine 100 mcg tablet 100 mcg PO QAM RF: 0 flecainide 50 mg tablet 100 mg PO AMPM RF: 0 pravastatin 20 mg tablet 20 mg PO HS RF: 0 digoxin 125 mcg tablet 125 mcg PO 3XWK RF: 0 albuterol sulfate 90 mcg/actuation HFA aerosol inhaler 2 puff Inhalation QID PRN (Reason: Shortness Of Breath) RF: 0 alcaftadine 0.25 % drops 1 drp OPB DAILY PRN (Reason: PRN) RF: 0 apixaban 2.5 mg tablet 2.5 mg PO BID RF: 0 azelastine 137 mcg (0.1 %) aerosol,spray 1 spray intranasal BID PRN (Reason: Nasal Congestion) RF: 0 cyclosporine [Restasis] 0.05 % dropperette 1 drp OPB QAM RF: 0 amlodipine 5 mg Tablet 5 mg PO QPM RF: 0 gabapentin 100 mg capsule 300 mg PO QPM RF: 0 eszopiclone 1 mg tablet 1.5 mg PO HS PRN (Reason: Sleep) RF: 0 fluocinolone acetonide oil 0.01 % drops 4 drp otic (ear) BID PRN (Reason: Itching) RF: 0 losartan 25 mg Tablet 25 mg PO QAM RF: 0 cyanocobalamin (vitamin B-12) 1,000 mcg Tablet 1,000 mcg PO QPM RF: 0 acetaminophen 650 mg Tablet Extended Release 1,300 mg PO Q12H PRN (Reason: Pain) RF: 0 cholecalciferol (vitamin D3) [Vitamin D3] 125 mcg (5,000 unit) Tablet 125 mcg PO QPM RF: 0 Discharge Orders: Discharge Order (Routine); Ordered 10/13/21 Ordered By: Primitivo Hernandez Admission Data Admit Date/Time: 10/12/21 08:42 Attending Provider: Primitivo Hernandez Admit Provider: Primitivo Hernandez Primary Care Provider: Maia Benito Other Providers: [facility] Other Interventions: Discharge Summary Assessment (RN) Last Done: 10/13/21 14:28
== END 2021-10-13 15:10 | disposition home or self-care (01) ==
LOC: ASU 05:06 → 3E 05:06
DX: M16.12 Unilateral primary osteoarthritis, left hip; Z98.890 Other specified postprocedural states; Z98.42 Cataract extraction status, left eye; Z79.01 Long term (current) use of anticoagulants; Z79.890 Hormone replacement therapy; Z88.1 Allergy status to other antibiotic agents; Z91.09 Other allergy status, other than to drugs and biological substances; Z98.41 Cataract extraction status, right eye; Z91.040 Latex allergy status; E78.5 Hyperlipidemia, unspecified; I48.91 Unspecified atrial fibrillation; N18.30 Chronic kidney disease, stage 3 unspecified; I12.9 Hypertensive chronic kidney disease with stage 1 through stage 4 chronic kidney disease, or unspecified chronic kidney disease; Z79.899 Other long term (current) drug therapy; D17.24 Benign lipomatous neoplasm of skin and subcutaneous tissue of left leg; J45.909 Unspecified asthma, uncomplicated; E03.9 Hypothyroidism, unspecified; M65.88 Other synovitis and tenosynovitis, other site; Z88.8 Allergy status to other drugs, medicaments and biological substances; Z91.048 Other nonmedicinal substance allergy status; Z90.49 Acquired absence of other specified parts of digestive tract; Z88.0 Allergy status to penicillin